=== PATIENT | female | born 2000 | race Caucasian/White ===

== ENCOUNTER 2020-04-29 14:37 | Outpatient (REF) | payer OTHER, SELFPAY ==
[2020-04-30 01:46] LABS: CT PCR NOT DETECTED (Not Detect.); NG PCR NOT DETECTED (Not Detect.)
[2020-04-30 11:24] LABS: BV Int Neg Control Negative (Negative); BV Int Pos Control Positive (Positive)
== END 2020-04-29 14:38 | disposition home or self-care (01) ==
LOC: HO.LAB 14:37
PROVIDERS: PCP Hospitalist; Visit Provider Obstetrics & Gynecology
DX: N89.8 Other specified noninflammatory disorders of vagina (principal)
CPT/HCPCS: 87480; 87491; 87510; 87591; 87660; 88142; 99212

== ENCOUNTER 2020-07-01 09:44 | Outpatient (REF) | payer OTHER, SELFPAY | END 2020-07-01 09:45 | disposition home or self-care (01) | LOC: HO.LAB 09:44 | PROVIDERS: Visit Provider Nurse Practitioner Family | DX: J02.0 Streptococcal pharyngitis (principal); Z20.822 Contact with and (suspected) exposure to COVID-19 | CPT/HCPCS: 36415; U0003 ==

== ENCOUNTER 2020-07-20 08:17 | Outpatient (REF) | payer OTHER, SELFPAY ==
[2020-07-21 11:21] LABS: BV Int Neg Control Negative (Negative); BV Int Pos Control Positive (Positive)
[2020-07-21 17:32] LABS: C. trachomatis RNA TMA NOT DETECTED (NOT DETECTED); N. gonorrhoeae RNA TMA NOT DETECTED (NOT DETECTED)
== END 2020-07-20 08:18 | disposition home or self-care (01) ==
LOC: HO.LAB 08:17
PROVIDERS: Visit Provider Advanced Practice Midwife
DX: Z01.419 Encounter for gynecological examination (general) (routine) without abnormal findings (principal); B37.9 Candidiasis, unspecified; E66.9 Obesity, unspecified; Z84.81 Family history of carrier of genetic disease; Z87.42 Personal history of other diseases of the female genital tract; Z79.2 Long term (current) use of antibiotics
CPT/HCPCS: 87210; 87480; 87491; 87510; 87591; 87660

== ENCOUNTER 2020-08-10 07:54 | Outpatient (REF) | payer OTHER, SELFPAY ==
[2020-08-11 08:48] LABS: BV Int Neg Control Negative (Negative); BV Int Pos Control Positive (Positive)
== END 2020-08-10 07:55 | disposition home or self-care (01) ==
LOC: HO.LAB 07:54
PROVIDERS: Visit Provider Advanced Practice Midwife
DX: B37.9 Candidiasis, unspecified (principal); E28.2 Polycystic ovarian syndrome; J45.20 Mild intermittent asthma, uncomplicated; K21.9 Gastro-esophageal reflux disease without esophagitis; E66.9 Obesity, unspecified; Z88.8 Allergy status to other drugs, medicaments and biological substances; Z79.3 Long term (current) use of hormonal contraceptives; Z84.81 Family history of carrier of genetic disease; Z80.3 Family history of malignant neoplasm of breast; Z79.2 Long term (current) use of antibiotics
CPT/HCPCS: 87480; 87510; 87660; 99212

== ENCOUNTER → 2020-08-26 13:07 | Outpatient (BNVA) | payer OTHER, SELFPAY | PROVIDERS: Visit Provider Advanced Practice Midwife | DX: Z30.432 Encounter for removal of intrauterine contraceptive device (principal); Z30.011 Encounter for initial prescription of contraceptive pills | CPT/HCPCS: 11982 ==

== ENCOUNTER 2020-09-14 13:35 | Outpatient (REF) | payer OTHER, SELFPAY | END 2020-09-14 13:36 | disposition home or self-care (01) | LOC: HO.LNP 13:35 | PROVIDERS: Visit Provider Family Medicine | DX: Z20.822 Contact with and (suspected) exposure to COVID-19 (principal); B34.9 Viral infection, unspecified | CPT/HCPCS: U0003; U0005 ==

== ENCOUNTER 2020-09-18 21:01 | Emergency (ER) | payer OTHER, SELFPAY ==
[2020-09-18 23:03] LABS: COVID-19 Test Negative (Negative)
--- NOTE | 2020-09-19 00:41 | ED.URI ---
HPI - URI/Sore Throat General Chief Complaint: Upper Respiratory Symptoms Stated Complaint: COVID SYMPTOMS Time Seen by Provider: 09/19/20 00:41 Source: patient Mode of arrival: ambulatory Limitations: no limitations History of Present Illness HPI Narrative: Sore throat for 2 weeks. Patient with recurrent strep pharyngitis had negative strep test on 08/31 at PCP office even though she was given clindamycin for 10 days which she took it was seen again at PCP office on 09/14 and diagnosed with viral tonsillitis supposed to follow-up with ENT patient comes here that she noticed white spots on the left tonsil which is been there before also and no says that she has temperature of 104 degrees at home on arrival temperature was 98.6 degrees without any tachycardia nontoxic look rapid strep and COVID test was negative MD elicited complaint: fever and sore throat Onset (ago): day(s) Severity: mild Related Data Home Medications Medication Instructions Recorded Confirmed albuterol sulfate 90 mcg/actuation 2 puff PO Q6H PRN 06/02/20 07/06/20 aerosol inhaler ibuprofen 600 mg tablet 600 mg PO Q6H PRN 06/02/20 07/06/20 Previous Rx's Medication Instructions Recorded cetirizine 10 mg tablet 10 mg PO DAILY 90 Days #90 tab 04/21/20 drospirenone 3 mg-ethinyl 1 tab PO DAILY 28 Days #28 tab 08/26/20 estradiol 0.03 mg tablet fluconazole 150 mg tablet 150 mg PO QWEEK PRN #1 tab 08/31/20 omeprazole 20 mg capsule,delayed 40 mg PO DAILY 30 Days #60 cap 08/31/20 release fluticasone propionate 50 1 spray INTRANASAL Q12H 30 Days 09/14/20 mcg/actuation nasal #16 g spray,suspension pseudoephedrine HCl 30 mg tablet 60 mg PO Q6H PRN 4 Days #32 tab 09/14/20 Allergies Allergy/AdvReac Type Severity Reaction Status Date / Time adhesive tape [ADHESIVE TAPE] Allergy Intermediate RASH Verified 09/14/20 11:30 Medical tape Allergy Intermediate hives Uncoded 08/31/20 10:48 Review of Systems Review of Systems: Constitutional : No Weight loss, No Fever, No Chills ENT/Mouth : + sore throat, No Rhinorrhea Eyes: No Eye Pain, No Swelling Cardiovascular : No Chest Pain, no palpitations Respiratory : No Cough, No Sputum, no shortness of breath Gastrointestinal : no Nausea, No Vomiting, No Diarrhea, No abdominal Pain, no black stools Genitourinary : No Dysuria, No Urinary Frequency Musculoskeletal : No joint pain, No Myalgias, No Joint Swelling Skin : No Skin Lesions, No rash Neuro : No Weakness, No Numbness, No Dizziness, No Headache Psych : No Anxiety/Panic, No Depression Heme/Lymph: No Bruising, No Lymphadenopathy Endocrine : No Polyuria, No Polydipsia All other systems reviewed and are negative [facility] Past Medical History Medical History Asthma, mild intermittent, well-controlled Cervical cancer screening Chronic GERD Etonogestrel implant for control Family history of breast cancer gene mutation in first degree relative Obesity (BMI 35.0-39.9 without comorbidity) PCOS (polycystic ovarian syndrome) Yeast infection Surgical History No pertinent past surgical history Family History Family History Mother Breast cancer Father No problems noted. Social History Social History Alcohol intake: never Smoking Status: Never smoker Advance Directives: No Sexual orientation: Straight/Heterosexual Gender identity: female Physical Exam Vital Signs: Vital Signs: Last Vital Signs Temp 98.6 F 09/19/20 00:55 Pulse 84 09/19/20 00:55 Resp 16 09/19/20 00:55 BP 136/74 09/19/20 00:55 Pulse Ox 100 09/19/20 00:55 Body Mass Index 34.0 Const: General: no acute distress, well developed, alert, awake and Physically active Orientation/consciousness: patient oriented x3 HENMT: Head: Yes normal to inspection Ears: hearing grossly normal bilaterally and TM's normal bilaterally General nose exam: Normal external nose present Face and sinus: Yes normal facial exam Mouth: Normal oral and palatal mucosa present Teeth and gingiva: dentition normal Throat: Yes uvula midline, Yes abnormal tonsil (Slightly inflamed left tonsil with food stuck in pockets no midline shift) and No peritonsillar mass Neck: Neck: Yes normal visual inspection, Yes full ROM and Yes no lymphadenopathy Resp: Effort & Inspection: normal respiratory effort Auscultation: clear to auscultation bilaterally Cardio: Palpation: normal PMI Rate: regular rate Rhythm: regular rhythm Heart sounds: S1 normal heart sound present and S2 normal heart sound present Neuro: General: patient oriented x3 MDM - URI/Sore Throat MDM Narrative Medical decision making narrative: Patient with recurrent tonsillitis last strep test was negative done on 08/31 was seen by her PCP on 09/14 and diagnosed with viral illness patient finished a course of clindamycin on 09/10 comes here with pain in the left tonsil area patient states that she had fever at home but on arrival temperature was 98.6 degrees patient is supposed to follow with ENT no difficulty in swallowing no cough no shortness of breath . at 00:50 patient eloped from the ER Lab Data Labs: Lab Results 09/18/20 Range/Units 22:41 COVID-19 (TRES) Negative (Negative) COVID-19 Clin Com See Note Discharge Plan Discharge Clinical Impression: Acute viral tonsillitis Patient Disposition: Elopement Prescriptions: No Action cetirizine [Zyrtec] 10 mg tablet 10 mg PO DAILY 90 Days Qty: 90 RF: 1 fluconazole [Diflucan] 150 mg tablet 150 mg PO QWEEK PRN (Reason: yeast infection recurrent) Qty: 1 RF: 0 omeprazole 20 mg capsule,delayed release(DR/EC) 40 mg PO DAILY 30 Days Qty: 60 RF: 0 ibuprofen 600 mg tablet 600 mg PO Q6H PRN (Reason: pain) RF: 0 albuterol sulfate 90 mcg/actuation HFA aerosol inhaler 2 puff PO Q6H PRNRF: 0 pseudoephedrine HCl 30 mg tablet 60 mg PO Q6H PRN (Reason: nasal congestion) 4 Days Qty: 32 RF: 0 fluticasone propionate [Flonase Allergy Relief] 50 mcg/actuation spray,suspension 1 spray intranasal Q12H 30 Days Qty: 16 RF: 0 drospirenone-ethinyl estradiol [Yolande (28)] 3-0.03 mg tablet 1 tab PO DAILY 28 Days Qty: 28 RF: 3
[2020-09-19 00:55] VITALS: BP 136/74; PULSE 84; RESP 16; TEMP 37; O2SAT 100; BMI 34.0
--- NOTE | 2020-09-19 01:19 | PC.NURSE ---
PATIENT ELOPING AFTER SEEING PROVIDER
== END 2020-09-19 01:00 | disposition left against medical advice (07) ==
PROVIDERS: Emergency Provider Internal Medicine; PCP Hospitalist
DX: J03.90 Acute tonsillitis, unspecified (principal); Z20.822 Contact with and (suspected) exposure to COVID-19
CPT/HCPCS: 36415; 87635; 99282; 99283

== ENCOUNTER → 2020-10-05 15:03 | Outpatient (BNVA) | payer OTHER, SELFPAY | PROVIDERS: PCP Hospitalist; Visit Provider Obstetrics & Gynecology | DX: E28.2 Polycystic ovarian syndrome (principal); B37.9 Candidiasis, unspecified | CPT/HCPCS: 99212 ==

== ENCOUNTER → 2020-11-02 10:38 | Outpatient (BNVA) | payer OTHER, SELFPAY | PROVIDERS: Visit Provider Obstetrics & Gynecology ==

== ENCOUNTER 2020-11-16 12:32 | Outpatient (REF) | payer OTHER, SELFPAY ==
[2020-11-16 13:32] LABS: MANUAL DIFF FLAG NO
[2020-11-16 13:35] LABS: Basophils Absolute Auto 0.1 X10*3/uL (0.0-0.2); Basophils Percent Auto 0.6 % (0-2); Eosinophils Absolute Auto 0.3 X10*3/uL (0.0-0.4); Eosinophils Percent Auto 3.2 % (0-4); Hematocrit 37.8 % (37-47); Hemoglobin 12.3 g/dl (12.0-16.0); Imm Gran Abs Auto 0.02 X10*3/uL (0.00-0.03); Imm Gran Pct Auto 0.2 % (0.0-0.4); Lymphocytes Absolute Auto 2.4 X10*3/uL (1.2-4.9); Lymphocytes Percent Auto 26.9 % (20-40); Mean Corpuscular HGB Conc 32.5 g/dl (31.0-35.0); Mean Corpuscular Hemoglobin 27.3 pg (27.0-33.0); Mean Corpuscular Volume 83.8 fL (80-98); Mean Platelet Volume 9.1 fL (9.4-12.3); Monocytes Absolute Auto 0.7 X10*3/uL (0.1-1.2); Monocytes Percent Auto 7.8 % (2-11); Neutrophils Absolute Auto 5.4 X10*3/uL (2.0-8.3); Neutrophils Percent Auto 61.3 % (45-73); Platelet Count 390 X10*3/uL (160-400); Red Blood Count 4.51 X10*6/uL (4.20-5.50); Red Cell Distribution Width 14.3 % (11.0-16.0); White Blood Count 8.9 X10*3/uL (4.8-10.8)
[2020-11-16 14:35] LABS: Anion Gap 12 (12-20); Blood Urea Nitrogen 10 mg/dL (9-16); Calcium 9.4 mg/dL (8.4-10.2); Carbon Dioxide 26 mmol/L (22-29); Chloride 104 mmol/L (96-108); Estimated Glomerular Filt Rate > 60; Glucose Random 112 mg/dL (60-115); Potassium 4.3 mmol/L (3.3-5.1); Sodium 138 mmol/L (135-145)
[2020-11-16 14:56] LABS: TSH reflex Free T4 0.43 uIU/mL (0.32-4.0)
[2020-11-17 20:17] LABS: Prolactin 8.2 ng/mL
== END 2020-11-16 12:33 | disposition home or self-care (01) ==
LOC: HO.WFDLDS 12:32
PROVIDERS: Family Medicine; Visit Provider Obstetrics & Gynecology
DX: Z00.00 Encounter for general adult medical examination without abnormal findings (principal); E28.2 Polycystic ovarian syndrome; J02.9 Acute pharyngitis, unspecified
CPT/HCPCS: 36415; 80048; 83498; 84146; 84443; 85025

== ENCOUNTER 2020-11-23 13:18 | Outpatient (REF) | payer OTHER, SELFPAY ==
[2020-11-23 17:16] LABS: Influenza A PCR NEGATIVE (Negative); Influenza B PCR NEGATIVE (Negative); Resp Syncy Virus RNA Qual PCR NEGATIVE (Negative); SARS COV2 PCR INHOUSE NEGATIVE (Negative)
== END 2020-11-23 13:19 | disposition home or self-care (01) ==
LOC: HO.LAB 13:18
PROVIDERS: Visit Provider Nurse Practitioner Family
DX: J02.9 Acute pharyngitis, unspecified (principal); Z20.822 Contact with and (suspected) exposure to COVID-19
CPT/HCPCS: 0241U; 36415; 87071

== ENCOUNTER 2020-12-28 18:22 | Outpatient (REF) | payer OTHER, SELFPAY | END 2020-12-28 18:23 | disposition home or self-care (01) | LOC: HO.LNP 18:22 | PROVIDERS: Visit Provider Family Medicine | DX: J02.9 Acute pharyngitis, unspecified (principal) | CPT/HCPCS: 87071 ==

== ENCOUNTER 2021-01-08 12:28 | Emergency (ER) | payer OTHER, SELFPAY ==
--- NOTE | ~2021-01-08 | XR_ITS ---
EXAMINATION: XR CHEST CLINICAL INFORMATION: Chest pain and shortness of breath COMPARISON: January 24, 2020 TECHNIQUE: 2 views of the chest were obtained. FINDINGS: No significant abnormality is noted involving the heart, lungs, mediastinum, bony thorax or soft tissues. XR/XR chest 2V IMPRESSION: No acute disease.
[2021-01-08 12:48] VITALS: BP 149/99; PULSE 109; RESP 18; TEMP 36.7; O2SAT 99; BMI 35.4
[2021-01-08 14:51] VITALS: BP 149/93; PULSE 85; RESP 16; O2SAT 100
--- NOTE | 2021-01-08 15:11 | ECG_ITS ---
Test Reason : CHEST PRESSURE Blood Pressure : / mmHG Vent. Rate : 082 BPM Atrial Rate : 082 BPM P-R Int : 132 ms QRS Dur : 084 ms QT Int : 374 ms P-R-T Axes : 056 051 019 degrees QTc Int : 436 ms Normal sinus rhythm with sinus arrhythmia Normal ECG No previous ECGs available Referred By: Marilin Brown Electronically Signed By:MILLI KINGSLEY
--- NOTE | 2021-01-08 15:29 | ED_ITS ---
HPI - General Adult General Chief complaint: General Medical Stated complaint: left arm pain, chest pressure Time Seen by Provider: 01/08/21 14:50 Source: patient Mode of arrival: ambulatory History of Present Illness HPI narrative: 20-year-old female with a past medical history of GERD, asthma, PCOS, obesity, presenting to the ED complaining of intermittent lightheadedness, substernal chest discomfort, palpitations and LUE tingling beginning [place] the beach. Reports increased anxiety pertaining to symptoms. Also reports associated SOB. Denies fever, chills, cough, abdominal pain, vomiting, recent travel, LE edema, cigarette smoking, history of blood clots Related Data Home Medications Medication Instructions Recorded Confirmed ibuprofen 600 mg tablet 600 mg PO Q6H PRN 06/02/20 07/06/20 Previous Rx's Medication Instructions Recorded omeprazole 20 mg capsule,delayed 40 mg PO DAILY 30 Days #60 cap 08/31/20 release fluticasone propionate 50 1 spray INTRANASAL Q12H 30 Days 09/14/20 mcg/actuation nasal #16 g spray,suspension pseudoephedrine HCl 30 mg tablet 60 mg PO Q6H PRN 4 Days #32 tab 09/14/20 fluconazole 150 mg tablet 150 mg PO Q72H 9 Days #3 tab 09/29/20 albuterol sulfate 90 mcg/actuation 2 puff PO Q6H PRN 30 Days #8.5 g 10/19/20 aerosol inhaler fluconazole 150 mg tablet 150 mg PO QWEEK 180 Days #4 tab 11/02/20 cetirizine 10 mg tablet 10 mg PO DAILY 90 Days #90 tab 12/15/20 fluconazole 150 mg tablet 150 mg PO Q3D #2 tab 12/16/20 clindamycin HCl 300 mg capsule 300 mg PO Q8H 10 Days #30 cap 12/28/20 amoxicillin 500 mg capsule 500 mg PO Q12H 10 Days #20 cap 12/30/20 Allergies Allergy/AdvReac Type Severity Reaction Status Date / Time adhesive tape [ADHESIVE TAPE] Allergy Intermediate RASH Verified 12/28/20 14:18 detergents Allergy Severe Hives, Uncoded 11/23/20 08:23 face swelling Medical tape Allergy Intermediate hives Uncoded 11/23/20 08:23 Review of Systems Review of Systems: Constitutional: No Fever, No Chills, No Fatigue, No Malaise Cardiovascular: + Chest Pain, + SOB, No Dyspnea on Exertion, No Edema, + Palpitations Respiratory: No Cough, No Sputum, No Dyspnea Gastrointestinal: No Nausea, No Vomiting, No Diarrhea, No Constipation, No Abdominal pain Genitourinary: No Dysuria, No Urinary Frequency, No Hematuria, No Flank Pain Musculoskeletal: No joint pain, No Myalgias Skin: No Skin Lesions, No rash Neuro: No Weakness, No Numbness, + Paresthesias, + lightheadedness Psych: + Anxiety/Panic Yes all other systems are reviewed and are negative [facility] Past Medical History Attestation statement: The following information was validated with the patient. Medical History Asthma, mild intermittent, well-controlled Cervical cancer screening Chronic GERD Etonogestrel implant for control Family history of breast cancer gene mutation in first degree relative Obesity (BMI 35.0-39.9 without comorbidity) PCOS (polycystic ovarian syndrome) PCOS (polycystic ovarian syndrome) Yeast infection Surgical History No pertinent past surgical history Family History Family History Mother Breast cancer Father No problems noted. Social History Social History Alcohol intake: never Advance Directives: Yes Advance Directives Information Provided: No Advance Directives on File: No Patient : No Sexual orientation: Straight/Heterosexual Gender identity: female Physical Exam Vital Signs: Vital Signs: Last Vital Signs Temp 98.1 F 01/08/21 12:48 Pulse 95 01/08/21 16:53 Resp 16 01/08/21 14:51 BP 140/84 H 01/08/21 16:53 Pulse Ox 100 01/08/21 14:51 Body Mass Index 35.4 Const: General: cooperative, healthy appearing, no acute distress, well developed, alert and awake Orientation/consciousness: patient oriented x3 Limitations: no limitations HENMT: Head: Yes normal to inspection Ears: hearing grossly normal bilaterally General nose exam: Normal external nose present Face and sinus: Yes normal facial exam Eyes: General: appearance normal, both eyes and all related structures EOM: EOMs intact bilaterally Neck: Neck: Yes normal visual inspection and Yes no meningeal signs Resp: Effort & Inspection: normal respiratory effort Auscultation: clear to auscultation bilaterally, no rales, no rhonchi and no wheezes Cardio: Rate: regular rate Heart sounds: S1 normal heart sound present and S2 normal heart sound present GI: Inspection: Yes normal to inspection Palpation (GI): Soft to palpation, nontender, no guarding and not rigid : General: Yes no CVA tenderness Back/Spine/Pelvis: Back: no CVA tenderness Skin: Rashes: no rashes Wounds: no wounds Neuro: General: patient oriented x3 and no meningeal signs Gait exam (Neuro): Normal gait present Extrem: General: Yes normal to inspection, Yes no pedal edema and Yes no calf tenderness Course Course Course Narrative: -1645--labs unremarkable, troponin negative -UA with trace protein, negative XR chest 2V IMPRESSION: No acute disease. -1714--orthostatic vital signs negative results discussed with patient and mother at bedside including worrisome signs and symptoms and strict return precautions including close follow-up with primary care doctor and Cardiology, patient verbalized understanding feel safe for discharge home Medical Decision Making [facility] Narrative Medical decision making narrative: 20-year-old female with a past medical hi story of GERD, asthma, PCOS, obesity, presenting to the ED complaining of intermittent lightheadedness, substernal chest discomfort, palpitations and LUE tingling beginning yesterday while at the beach. On exam initially tachycardic, anxious, NAD/nontoxic appearing, lungs CTA, no pedal edema or calf tenderness. Pulses intact throughout. Concern for anxiety reaction vs ACS vs arrhythmia. Rule out metabolic abnormalities infectious etiology. Symptoms atypical for PE Plan: EKG, labs, CXR, reassess Lab Data Result diagrams: 01/08/21 15:31 01/08/21 15:31 Labs: Lab Results 01/08/21 01/08/21 01/08/21 Range/Units 15:31 15:31 15:31 WBC 9.5 (4.8-10.8) X10*3/uL RBC 4.54 (4.20-5.50) X10*6/uL Hgb 12.3 (12.0-16.0) g/dl Hct 37.4 (37-47) % MCV 82.4 (80-98) fL MCH 27.1 (27.0-33.0) pg MCHC 32.9 (31.0-35.0) g/dl RDW 14.6 (11.0-16.0) % Plt Count TNP MPV 9.6 (9.4-12.3) fL Immature Gran % (Auto) 0.3 (0.0-0.4) % Neut % (Auto) 60.8 (45-73) % Lymph % (Auto) 29.4 (20-40) % [place] % (Auto) 7.2 (2-11) % Eos % (Auto) 2.0 (0-4) % Baso % (Auto) 0.3 (0-2) % Lymph # (Auto) 2.8 (1.2-4.9) X10*3/uL [place] # (Auto) 0.7 (0.1-1.2) X10*3/uL Eos # (Auto) 0.2 (0.0-0.4) X10*3/uL Baso # (Auto) 0.0 (0.0-0.2) X10*3/uL Abs Immat Gran (auto) 0.03 (0.00-0.03) X10*3/uL Absolute Neuts (auto) 5.8 (2.0-8.3) X10*3/uL Absolute Nucleated RBC 0.000 (0.0-0.012) X10*3/uL Nucleated RBC % (auto) 0.0 (0.0-0.2) /100WBC Smear Tech's Comments VERIFIED Sodium 142 (135-145) mmol/L Potassium 4.2 (3.3-5.1) mmol/L Chloride 108 (96-108) mmol/L Carbon Dioxide 24 (22-29) mmol/L Anion Gap 14 (12-20) BUN 10 (9-16) mg/dL Creatinine 0.74 (0.5-1.4) mg/dL Estim Creat Clear Calc 127.4 Estimated GFR > 60 Random Glucose 77 (60-115) mg/dL Calcium 9.6 (8.4-10.2) mg/dL Magnesium 2.1 (1.6-2.6) mg/dL Total Bilirubin < 0.2 (0.0-1.0) mg/dL Direct Bilirubin < 0.2 (0.0-0.5) mg/dL AST 17 (5-31) U/L ALT 13 (0-31) U/L Alkaline Phosphatase 121 H (39-117) U/L Troponin I High Sens < 3.5 (<3.5-17.0) ng/L Total Protein 7.7 (6.5-8.0) g/dL Albumin 4.4 (3.5-5.0) g/dL TSH 0.62 (0.32-4.0) uIU/mL Urine Color Urine Appearance Urine pH (5.0-8.0) Ur Specific [place] (1.005-1.025) Urine Protein (NEG-TRACE) MG/DL Urine Glucose (UA) (NEG) MG/DL Urine Ketones (NEG) MG/DL Urine Blood (NEG) Urine Nitrite (NEG) Ur Leukocyte Esterase (NEG) Urine Test (NEGATIVE) Urine Opiates Screen (Not Detect) Ur Barbiturates Screen (Not Detect) Ur Phencyclidine Scrn (Not Detect) Ur Amphetamines Screen (Not Detect) U Benzodiazepines Scrn (Not Detect) Urine Cocaine Screen (Not Detect) U Marijuana (THC) Screen (Not Detect) 01/08/21 01/08/21 01/08/21 Range/Units 15:36 15:36 15:36 WBC (4.8-10.8) X10*3/uL RBC (4.20-5.50) X10*6/uL Hgb (12.0-16.0) g/dl Hct (37-47) % MCV (80-98) fL MCH (27.0-33.0) pg MCHC (31.0-35.0) g/dl RDW (11.0-16.0) % Plt Count MPV (9.4-12.3) fL Immature Gran % (Auto) (0.0-0.4) % Neut % (Auto) (45-73) % Lymph % (Auto) (20-40) % [place] % (Auto) (2-11) % Eos % (Auto) (0-4) % Baso % (Auto) (0-2) % Lymph # (Auto) (1.2-4.9) X10*3/uL [place] # (Auto) (0.1-1.2) X10*3/uL Eos # (Auto) (0.0-0.4) X10*3/uL Baso # (Auto) (0.0-0.2) X10*3/uL Abs Immat Gran (auto) (0.00-0.03) X10*3/uL Absolute Neuts (auto) (2.0-8.3) X10*3/uL Absolute Nucleated RBC (0.0-0.012) X10*3/uL Nucleated RBC % (auto) (0.0-0.2) /100WBC Smear Tech's Comments Sodium (135-145) mmol/L Potassium (3.3-5.1) mmol/L Chloride (96-108) mmol/L Carbon Dioxide (22-29) mmol/L Anion Gap (12-20) BUN (9-16) mg/dL Creatinine (0.5-1.4) mg/dL Estim Creat Clear Calc Estimated GFR Random Glucose (60-115) mg/dL Calcium (8.4-10.2) mg/dL Magnesium (1.6-2.6) mg/dL Total Bilirubin (0.0-1.0) mg/dL Direct Bilirubin (0.0-0.5) mg/dL AST (5-31) U/L ALT (0-31) U/L Alkaline Phosphatase (39-117) U/L Troponin I High Sens (<3.5-17.0) ng/L Total Protein (6.5-8.0) g/dL Albumin (3.5-5.0) g/dL TSH (0.32-4.0) uIU/mL Urine Color YELLOW Urine Appearance CLEAR Urine pH 7.0 (5.0-8.0) Ur Specific [place] 1.015 (1.005-1.025) Urine Protein TRACE (NEG-TRACE) MG/DL Urine Glucose (UA) NEG (NEG) MG/DL Urine Ketones NEG (NEG) MG/DL Urine Blood NEG (NEG) Urine Nitrite NEG (NEG) Ur Leukocyte Esterase NEG (NEG) Urine Test NEGATIVE (NEGATIVE) Urine Opiates Screen Not Detected (Not Detect) Ur Barbiturates Screen Not Detected (Not Detect) Ur Phencyclidine Scrn Not Detected (Not Detect) Ur Amphetamines Screen Not Detected (Not Detect) U Benzodiazepines Scrn Not Detected (Not Detect) Urine Cocaine Screen Not Detected (Not Detect) U Marijuana (THC) Screen Not Detected (Not Detect) ECG Data Attestation: I personally reviewed and interpreted this ECG as follows: Interpretation: EKG normal sinus rhythm with sinus arrhythmia with rate of 82, nonischemic/no stemi Discharge Plan Discharge Clinical Impression: Lightheadedness, Chest pain Patient Disposition: Home, Self-Care Instructions: Lightheadedness (ED), Chest Pain (ED) Additional Instructions: Your blood work is unremarkable today in the emergency department Your x-ray was within normal limits It is important for you to stay hydrated at home Please follow-up with your primary care doctor and cardiology If her symptoms persist or worsen, become unbearable or more constant, or passing out, or have fever please return to the ED Prescriptions: No Action fluconazole [Diflucan] 150 mg tablet 150 mg PO Q72H 9 Days Qty: 3 RF: 0 albuterol sulfate 90 mcg/actuation HFA aerosol inhaler 2 puff PO Q6H PRN (Reason: shortness of breath or wheezing) 30 Days Qty: 8.5 RF: 3 cetirizine [Zyrtec] 10 mg tablet 10 mg PO DAILY 90 Days Qty: 90 RF: 1 fluconazole 150 mg tablet 150 mg PO Q3D Qty: 2 RF: 0 amoxicillin 500 mg capsule 500 mg PO Q12H 10 Days Qty: 20 RF: 0 omeprazole 20 mg capsule,delayed release(DR/EC) 40 mg PO DAILY 30 Days Qty: 60 RF: 0 clindamycin HCl 300 mg capsule 300 mg PO Q8H 10 Days Qty: 30 RF: 0 ibuprofen 600 mg tablet 600 mg PO Q6H PRN (Reason: pain) RF: 0 pseudoephedrine HCl 30 mg tablet 60 mg PO Q6H PRN (Reason: nasal congestion) 4 Days Qty: 32 RF: 0 fluticasone propionate [Flonase Allergy Relief] 50 mcg/actuation spray,suspension 1 spray intranasal Q12H 30 Days Qty: 16 RF: 0 fluconazole 150 mg tablet 150 mg PO QWEEK 180 Days Qty: 4 RF: 4 Referrals: Tal Alvarez MD [Physician] - 1 week Amber Green NP [Primary Care Provider] - 2 days
[2021-01-08 15:43] LABS: Glucose Urine UA NEG (NEG); Leukocyte Esterase Urine NEG (NEG); Nitrite Urine NEG (NEG); Specific Gravity - Urine 1.015 (1.005-1.025); Urine Blood NEG (NEG); Urine Ketones NEG (NEG); Urine Protein TRACE MG/DL (NEG-TRACE)
[2021-01-08 15:44] LABS: Basophils Percent Auto 0.3 % (0-2); Eosinophils Absolute Auto 0.2 X10*3/uL (0.0-0.4); Hematocrit 37.4 % (37-47); Hemoglobin 12.3 g/dl (12.0-16.0); Imm Gran Abs Auto 0.03 X10*3/uL (0.00-0.03); Imm Gran Pct Auto 0.3 % (0.0-0.4); Lymphocytes Absolute Auto 2.8 X10*3/uL (1.2-4.9); Lymphocytes Percent Auto 29.4 % (20-40); MANUAL DIFF FLAG SCAN; Mean Corpuscular HGB Conc 32.9 g/dl (31.0-35.0); Mean Corpuscular Hemoglobin 27.1 pg (27.0-33.0); Mean Corpuscular Volume 82.4 fL (80-98); Mean Platelet Volume 9.6 fL (9.4-12.3); Monocytes Absolute Auto 0.7 X10*3/uL (0.1-1.2); Monocytes Percent Auto 7.2 % (2-11); Neutrophils Absolute Auto 5.8 X10*3/uL (2.0-8.3); Neutrophils Percent Auto 60.8 % (45-73); PLT CLUMP 1; Red Blood Count 4.54 X10*6/uL (4.20-5.50); Red Cell Distribution Width 14.6 % (11.0-16.0); SCAN SMEAR FLAG 1
[2021-01-08 15:45] LABS: White Blood Count 9.5 X10*3/uL (4.8-10.8)
[2021-01-08 15:46] LABS: Appearance Urine CLEAR; Color Urine YELLOW
[2021-01-08 15:47] LABS: UPreg QC Valid YES; Urine Pregnancy NEGATIVE (NEGATIVE)
[2021-01-08 15:57] LABS: SLIDE REVIEW VERIFIED
[2021-01-08 16:02] LABS: Alanine Aminotransferase 13 U/L (0-31); Albumin Level 4.4 g/dL (3.5-5.0); Alkaline Phosphatase 121 U/L (39-117); Anion Gap 14 (12-20); Aspartate Amino Transferase 17 U/L (5-31); Bilirubin Direct < 0.2 mg/dL (0.0-0.5); Bilirubin Total < 0.2 mg/dL (0.0-1.0); Blood Urea Nitrogen 10 mg/dL (9-16); Calcium 9.6 mg/dL (8.4-10.2); Carbon Dioxide 24 mmol/L (22-29); Chloride 108 mmol/L (96-108); Creatinine Clr Calc Pharmacy 127.4; Estimated Glomerular Filt Rate > 60; Glucose Random 77 mg/dL (60-115); Magnesium 2.1 mg/dL (1.6-2.6); Potassium 4.2 mmol/L (3.3-5.1); Sodium 142 mmol/L (135-145); Total Protein 7.7 g/dL (6.5-8.0)
[2021-01-08 16:06] LABS: Troponin-I High Sensitivity < 3.5 ng/L (<3.5-17.0)
[2021-01-08] MEDS: 0.9 % Sodium Chloride 1,000 ML 999 ML IVCONT (16:08)
[2021-01-08] MEDS: ondansetron HCL 4 MG/2 ML VIAL IVPUSH (16:08)
[2021-01-08 16:10] LABS: Amphetamine Screen Urine Not Detected (Not Detect); Barbiturates, Urine Not Detected (Not Detect); Benzodiazepines Screen Urine Not Detected (Not Detect); Cannabinoid Screen Urine Not Detected (Not Detect); Cocaine Screen Urine Not Detected (Not Detect); Opiate Screen Urine Not Detected (Not Detect); Phencyclidine Screen Urine Not Detected (Not Detect)
--- NOTE | 2021-01-08 16:30 | PC.NURSE ---
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 Patient also states that her vision was blurry yesterday.
[2021-01-08 16:47] LABS: TSH reflex Free T4 0.62 uIU/mL (0.32-4.0)
[2021-01-08 16:51] VITALS: BP 127/82; PULSE 79
[2021-01-08 16:52] VITALS: BP 136/92; PULSE 82
[2021-01-08 16:53] VITALS: BP 140/84; PULSE 95
== END 2021-01-08 17:38 | disposition home or self-care (01) ==
PROVIDERS: Physician Assistant; Emergency Provider Emergency Medicine; PCP Hospitalist
DX: R42 Dizziness and giddiness (principal); R07.9 Chest pain, unspecified; R00.0 Tachycardia, unspecified; F41.9 Anxiety disorder, unspecified; J45.909 Unspecified asthma, uncomplicated; Z79.2 Long term (current) use of antibiotics; Z79.899 Other long term (current) drug therapy
CPT/HCPCS: 36415; 71046; 80048; 80076; 80307; 81003; 81025; 83735; 84443; 84484; 85025; 93005; 96361; 96374; 99284; J2405

== ENCOUNTER 2021-01-26 12:18 | Outpatient (REF) | payer OTHER, SELFPAY ==
[2021-01-26 13:57] LABS: MANUAL DIFF FLAG NO
[2021-01-26 14:09] LABS: Basophils Percent Auto 0.4 % (0-2); Eosinophils Absolute Auto 0.1 X10*3/uL (0.0-0.4); Eosinophils Percent Auto 1.3 % (0-4); Hematocrit 36.6 % (37-47); Hemoglobin 11.7 g/dl (12.0-16.0); Imm Gran Abs Auto 0.03 X10*3/uL (0.00-0.03); Imm Gran Pct Auto 0.3 % (0.0-0.4); Lymphocytes Absolute Auto 2.2 X10*3/uL (1.2-4.9); Lymphocytes Percent Auto 24.9 % (20-40); Mean Corpuscular Hemoglobin 26.8 pg (27.0-33.0); Mean Corpuscular Volume 83.9 fL (80-98); Mean Platelet Volume 9.3 fL (9.4-12.3); Monocytes Absolute Auto 0.6 X10*3/uL (0.1-1.2); Neutrophils Percent Auto 66.1 % (45-73); Platelet Count 422 X10*3/uL (160-400); Red Blood Count 4.36 X10*6/uL (4.20-5.50); Red Cell Distribution Width 14.5 % (11.0-16.0)
[2021-01-26 14:10] LABS: Glucose Urine UA NEG (NEG); Leukocyte Esterase Urine NEG (NEG); Nitrite Urine NEG (NEG); Urine Blood TRACE (NEG); Urine Ketones NEG (NEG); Urine Protein NEG (NEG-TRACE)
[2021-01-26 14:15] LABS: Appearance Urine CLEAR; Color Urine STRAW
[2021-01-26 14:36] LABS: RBC Urine 0 /HPF (0); Squamous Epithelial Cell Urine TRACE /LPF; WBC Urine 0-2 /HPF (0-4)
[2021-01-26 14:46] LABS: Alanine Aminotransferase 14 U/L (0-31); Albumin Level 4.4 g/dL (3.5-5.0); Alkaline Phosphatase 114 U/L (39-117); Anion Gap 13 (12-20); Aspartate Amino Transferase 14 U/L (5-31); Bilirubin Total 0.2 mg/dL (0.0-1.0); Blood Urea Nitrogen 8 mg/dL (9-16); Calcium 9.6 mg/dL (8.4-10.2); Carbon Dioxide 25 mmol/L (22-29); Chloride 106 mmol/L (96-108); Estimated Glomerular Filt Rate > 60; Glucose Random 80 mg/dL (60-115); Potassium 4.2 mmol/L (3.3-5.1); Sodium 140 mmol/L (135-145); Total Protein 7.5 g/dL (6.5-8.0)
[2021-01-26 15:07] LABS: TSH reflex Free T4 0.49 uIU/mL (0.32-4.0)
[2021-01-26 16:12] LABS: Folate 16.7 ng/mL (> or = 4.0); Vitamin B12 492 pg/mL (200-900)
== END 2021-01-26 12:19 | disposition home or self-care (01) ==
LOC: HO.WFDLDS 12:18
PROVIDERS: Visit Provider Family Medicine
DX: Z00.00 Encounter for general adult medical examination without abnormal findings (principal); R10.9 Unspecified abdominal pain; E53.8 Deficiency of other specified B group vitamins
CPT/HCPCS: 36415; 80053; 81001; 82607; 82746; 84443; 85025

== ENCOUNTER 2021-01-30 22:11 | Emergency (ER) | payer OTHER, SELFPAY ==
--- NOTE | ~2021-01-30 | CT_ITS ---
EXAMINATION: CT ABDOMEN AND PELVIS WITHOUT CONTRAST CLINICAL INFORMATION: Right abdominal pain. Nausea. COMPARISON: None TECHNIQUE: Multidetector volumetric imaging was performed from the superior aspect of the liver through the pubic symphysis. Sagittal and coronal reformatted images were obtained on the technologist's workstation. This CT examination was performed using dose optimization techniques as appropriate, variously including the following: *Automated exposure control *Adjustment of mA and/or kV according to patient size (this includes techniques or standardized protocols for targeted exams where dose is matched to indication/reason for exam; i.e. extremities or head) *Use of iterative reconstruction technique DLP: 840 mGy-cm FINDINGS: LUNG BASES: The visualized lung bases are unremarkable. LIVER, GALLBLADDER, AND BILIARY TREE: The liver is normal in size, shape, and attenuation. No focal hepatic lesion or biliary ductal dilatation is present. The gallbladder is unremarkable with no evidence of radiopaque gallstones, gallbladder wall thickening, or obvious pericholecystic inflammatory changes. PANCREAS: Unremarkable. SPLEEN: Unremarkable. ADRENAL GLANDS: Unremarkable. KIDNEYS AND URETERS: The kidneys are normal in size, shape, and attenuation. No hydronephrosis, hydroureter, or calculi seen. No perinephric stranding. BLADDER: Unremarkable. GASTROINTESTINAL TRACT: The stomach is unremarkable. Normal caliber small bowel. There is no obstruction. There is diverticulosis of the left hemicolon without diverticulitis. Normal appendix. No free air or free fluid. ABDOMINAL WALL: No significant hernia is appreciated. LYMPH NODES: Normal. VASCULAR: Unremarkable. PELVIC VISCERA: The uterus and adnexa are unremarkable. OSSEOUS STRUCTURES: No acute or suspicious osseous abnormality. CT/CT abdomen pelvis wo con IMPRESSION: No acute findings of the abdomen or pelvis. No inflammatory changes. Normal appendix.
[2021-01-30 22:38] VITALS: BP 124/82; PULSE 97; RESP 18; TEMP 36.8; O2SAT 97; BMI 36.9
--- NOTE | 2021-01-30 23:03 | ED_ITS ---
HPI - Abdominal Pain General Chief Complaint: Abdominal Pain Stated Complaint: Right lower abdominal pain/Nausea Time Seen by Provider: 01/30/21 22:16 Source: patient Mode of arrival: ambulatory History of Present Illness HPI narrative: 20-year-old female with presentation of right flank pain that started last night associated with nausea but denies any fever, chills, urinary pain/burning/frequency, diarrhea. LMP was 1 and half weeks ago and patient is taking chronic NSAIDs for a tendinitis. In addition, patient has not had a bowel movement since Saturday and denies history of abdominal surgery or kidney stones. Related Data Home Medications Medication Instructions Recorded Confirmed ibuprofen 600 mg tablet 600 mg PO Q6H PRN 06/02/20 01/12/21 Previous Rx's Medication Instructions Recorded albuterol sulfate 90 mcg/actuation 2 puff PO Q6H PRN 30 Days #8.5 g 10/19/20 aerosol inhaler cetirizine 10 mg tablet (Zyrtec) 10 mg PO DAILY 90 Days #90 tab 12/15/20 omeprazole 20 mg capsule,delayed 40 mg PO DAILY 30 Days #60 cap 01/27/21 release Allergies Allergy/AdvReac Type Severity Reaction Status Date / Time adhesive tape [ADHESIVE TAPE] Allergy Intermediate RASH Verified 01/30/21 22:38 detergents Allergy Severe Hives, Uncoded 01/12/21 16:23 face swelling Medical tape Allergy Intermediate hives Uncoded 01/12/21 16:23 Review of Systems Review of Systems Pertinent positives and negatives as stated in HPI 10 point review of systems is otherwise negative. Physical Exam Vital Signs: Vital Signs: Last Vital Signs Temp 98.3 F 01/30/21 22:38 Pulse 97 01/30/21 22:38 Resp 18 01/30/21 22:38 BP 124/82 01/30/21 22:38 Pulse Ox 97 01/30/21 22:38 Body Mass Index 36.9 VITAL SIGNS: Reviewed. GENERAL: Well developed, well nourished, in no acute distress. HEAD: Normocephalic/atraumatic EYES: PERRLA, EOMI OROPHARYNX: no oral lesions noted, posterior pharynx clear LUNGS: Normal breath sounds. No adventitious sounds or accessory muscle use. SpO2<97> CARDIOVASCULAR: Regular rate and rhythm without noted murmurs ABDOMEN: Obese, Soft, tender set mid right abdomen without rebound, non- distended with bowel sounds, no CVA tenderness SKIN: Inspection of the skin reveals no rashes NEUROLOGIC: Alert and oriented x 4. Course Course Course Narrative: 20-year-old female with history and clinical presentation suggestive of gallbladder, renal colic, UTI, less likely appendicitis. Review of all investigations otherwise negative for acute findings. Patient discharged with presumptive gastritis and likely leukocytosis secondary to stress response. Patient informed of all results and discharged home in stable condition. MDM - Abdominal Pain Lab Data Result diagrams: 01/30/21 23:26 01/30/21 23:26 Labs: Lab Results 01/30/21 01/30/21 01/30/21 Range/Units 23:05 23:05 23:26 WBC 12.4 H (4.8-10.8) X10*3/uL RBC 4.28 (4.20-5.50) X10*6/uL Hgb 11.6 L (12.0-16.0) g/dl Hct 35.6 L (37-47) % MCV 83.2 (80-98) fL MCH 27.1 (27.0-33.0) pg MCHC 32.6 (31.0-35.0) g/dl RDW 14.5 (11.0-16.0) % Plt Count 388 (160-400) X10*3/uL MPV 8.9 L (9.4-12.3) fL Immature Gran % (Auto) 0.2 (0.0-0.4) % Neut % (Auto) 59.7 (45-73) % Lymph % (Auto) 28.2 (20-40) % [place] % (Auto) 8.0 (2-11) % Eos % (Auto) 3.5 (0-4) % Baso % (Auto) 0.4 (0-2) % Lymph # (Auto) 3.5 (1.2-4.9) X10*3/uL [place] # (Auto) 1.0 (0.1-1.2) X10*3/uL Eos # (Auto) 0.4 (0.0-0.4) X10*3/uL Baso # (Auto) 0.1 (0.0-0.2) X10*3/uL Abs Immat Gran (auto) 0.02 (0.00-0.03) X10*3/uL Absolute Neuts (auto) 7.4 (2.0-8.3) X10*3/uL Absolute Nucleated RBC 0.000 (0.0-0.012) X10*3/uL Nucleated RBC % (auto) 0.0 (0.0-0.2) /100WBC Sodium (135-145) mmol/L Potassium (3.3-5.1) mmol/L Chloride (96-108) mmol/L Carbon Dioxide (22-29) mmol/L Anion Gap (12-20) BUN (9-16) mg/dL Creatinine (0.5-1.4) mg/dL Estim Creat Clear Calc Estimated GFR Random Glucose (60-115) mg/dL Calcium (8.4-10.2) mg/dL Total Bilirubin (0.0-1.0) mg/dL AST (5-31) U/L ALT (0-31) U/L Alkaline Phosphatase (39-117) U/L Total Protein (6.5-8.0) g/dL Albumin (3.5-5.0) g/dL Lipase (8-78) U/L Urine Color YELLOW Urine Appearance HAZY Urine pH 6.0 (5.0-8.0) Ur Specific [place]im 1.025 (1.005-1.025) Urine Protein NEG (NEG-TRACE) MG/DL Urine Glucose (UA) NEG (NEG) MG/DL Urine Ketones NEG (NEG) MG/DL Urine Blood 2+ H (NEG) Urine Nitrite NEG (NEG) Ur Leukocyte Esterase NEG (NEG) Urine RBC 15-29 H (0) /HPF Urine WBC 0-2 (0-4) /HPF Ur Squamous Epith Cells 2+ /LPF Urine Bacteria TRACE /LPF Urine Mucus 3+ /LPF Urine Test NEGATIVE (NEGATIVE) 01/30/21 Range/Units 23:26 WBC (4.8-10.8) X10*3/uL RBC (4.20-5.50) X10*6/uL Hgb (12.0-16.0) g/dl Hct (37-47) % MCV (80-98) fL MCH (27.0-33.0) pg MCHC (31.0-35.0) g/dl RDW (11.0-16.0) % Plt Count (160-400) X10*3/uL MPV (9.4-12.3) fL Immature Gran % (Auto) (0.0-0.4) % Neut % (Auto) (45-73) % Lymph % (Auto) (20-40) % [place] % (Auto) (2-11) % Eos % (Auto) (0-4) % Baso % (Auto) (0-2) % Lymph # (Auto) (1.2-4.9) X10*3/uL [place] # (Auto) (0.1-1.2) X10*3/uL Eos # (Auto) (0.0-0.4) X10*3/uL Baso # (Auto) (0.0-0.2) X10*3/uL Abs Immat Gran (auto) (0.00-0.03) X10*3/uL Absolute Neuts (auto) (2.0-8.3) X10*3/uL Absolute Nucleated RBC (0.0-0.012) X10*3/uL Nucleated RBC % (auto) (0.0-0.2) /100WBC Sodium 142 (135-145) mmol/L Potassium 4.2 (3.3-5.1) mmol/L Chloride 106 (96-108) mmol/L Carbon Dioxide 28 (22-29) mmol/L Anion Gap 12 (12-20) BUN 13 D (9-16) mg/dL Creatinine 0.83 (0.5-1.4) mg/dL Estim Creat Clear Calc 111.9 Estimated GFR > 60 Random Glucose 98 (60-115) mg/dL Calcium 9.4 (8.4-10.2) mg/dL Total Bilirubin < 0.2 (0.0-1.0) mg/dL AST 16 (5-31) U/L ALT 15 (0-31) U/L Alkaline Phosphatase 110 (39-117) U/L Total Protein 7.2 (6.5-8.0) g/dL Albumin 4.2 (3.5-5.0) g/dL Lipase 18 (8-78) U/L Urine Color Urine Appearance Urine pH (5.0-8.0) Ur Specific [place]im (1.005-1.025) Urine Protein (NEG-TRACE) MG/DL Urine Glucose (UA) (NEG) MG/DL Urine Ketones (NEG) MG/DL Urine Blood (NEG) Urine Nitrite (NEG) Ur Leukocyte Esterase (NEG) Urine RBC (0) /HPF Urine WBC (0-4) /HPF Ur Squamous Epith Cells /LPF Urine Bacteria /LPF Urine Mucus /LPF Urine Test (NEGATIVE) Discharge Plan Discharge Clinical Impression: Abdominal discomfort, Gastritis Patient Disposition: Home, Self-Care Instructions: Diet for Stomach Ulcers and Gastritis (ED), Gastritis (ED), Safe Use of NSAIDs (ED) Additional Instructions: 1. Resume all home medications as prescribed. 2. Follow-up with your primary care provider in the next 2-3 days for re- evaluation. 3. Exercise caution with the amount ibuprofen that you are using as it can contribute to further stomach problems. Continue to drink plenty of fluids brianna cially water. Return to the ER for acute worsening of symptoms. Prescriptions: No Action albuterol sulfate 90 mcg/actuation HFA aerosol inhaler 2 puff PO Q6H PRN (Reason: shortness of breath or wheezing) 30 Days Qty: 8.5 RF: 3 cetirizine [Zyrtec] 10 mg tablet 10 mg PO DAILY 90 Days Qty: 90 RF: 1 omeprazole 20 mg capsule,delayed release(DR/EC) 40 mg PO DAILY 30 Days Qty: 60 RF: 3 ibuprofen 600 mg tablet 600 mg PO Q6H PRN (Reason: pain) RF: 0 Referrals: Amber Green NP [Primary Care Provider] - 2 days [facility] Past Medical History Source: nursing notes reviewed Medical History Asthma, mild intermittent, well-controlled Cervical cancer screening Chronic GERD Etonogestrel implant for control Family history of breast cancer gene mutation in first degree relative Obesity (BMI 35.0-39.9 without comorbidity) Otitis media PCOS (polycystic ovarian syndrome) Pharyngitis Serous otitis media Sinus infection Sore throat Viral illness Yeast infection Surgical History No pertinent past surgical history Family History Family History Mother Breast cancer Father No problems noted. Social History Social History Alcohol intake: never Advance Directives: No Advance Directives Information Provided: No Patient : No Sexual orientation: Straight/Heterosexual Gender identity: female
[2021-01-30 23:27] LABS: Glucose Urine UA NEG (NEG); Leukocyte Esterase Urine NEG (NEG); Nitrite Urine NEG (NEG); Specific Gravity - Urine 1.025 (1.005-1.025); UACC Culture Trigger NO; Urine Blood 2+ (NEG); Urine Ketones NEG (NEG); Urine Protein NEG (NEG-TRACE)
[2021-01-30 23:29] LABS: Appearance Urine HAZY; Color Urine YELLOW; UPreg QC Valid YES; Urine Pregnancy NEGATIVE (NEGATIVE)
[2021-01-30 23:30] LABS: MANUAL DIFF FLAG NO
[2021-01-30 23:31] LABS: Basophils Absolute Auto 0.1 X10*3/uL (0.0-0.2); Basophils Percent Auto 0.4 % (0-2); Eosinophils Absolute Auto 0.4 X10*3/uL (0.0-0.4); Eosinophils Percent Auto 3.5 % (0-4); Hematocrit 35.6 % (37-47); Hemoglobin 11.6 g/dl (12.0-16.0); Imm Gran Abs Auto 0.02 X10*3/uL (0.00-0.03); Imm Gran Pct Auto 0.2 % (0.0-0.4); Lymphocytes Absolute Auto 3.5 X10*3/uL (1.2-4.9); Lymphocytes Percent Auto 28.2 % (20-40); Mean Corpuscular HGB Conc 32.6 g/dl (31.0-35.0); Mean Corpuscular Hemoglobin 27.1 pg (27.0-33.0); Mean Corpuscular Volume 83.2 fL (80-98); Mean Platelet Volume 8.9 fL (9.4-12.3); Neutrophils Absolute Auto 7.4 X10*3/uL (2.0-8.3); Neutrophils Percent Auto 59.7 % (45-73); Platelet Count 388 X10*3/uL (160-400); Red Blood Count 4.28 X10*6/uL (4.20-5.50); Red Cell Distribution Width 14.5 % (11.0-16.0); White Blood Count 12.4 X10*3/uL (4.8-10.8)
[2021-01-31 00:02] LABS: Alanine Aminotransferase 15 U/L (0-31); Albumin Level 4.2 g/dL (3.5-5.0); Alkaline Phosphatase 110 U/L (39-117); Anion Gap 12 (12-20); Aspartate Amino Transferase 16 U/L (5-31); Bilirubin Total < 0.2 mg/dL (0.0-1.0); Blood Urea Nitrogen 13 mg/dL (9-16); Calcium 9.4 mg/dL (8.4-10.2); Carbon Dioxide 28 mmol/L (22-29); Chloride 106 mmol/L (96-108); Creatinine Clr Calc Pharmacy 111.9; Estimated Glomerular Filt Rate > 60; Glucose Random 98 mg/dL (60-115); Lipase 18 U/L (8-78); Potassium 4.2 mmol/L (3.3-5.1); Sodium 142 mmol/L (135-145); Total Protein 7.2 g/dL (6.5-8.0)
[2021-01-31 00:06] LABS: Bacteria Urine TRACE /LPF; Mucus Urine 3+ /LPF; Squamous Epithelial Cell Urine 2+ /LPF; WBC Urine 0-2 /HPF (0-4)
[2021-01-31] MEDS: hydrOXYzine HCL 25 MG TABLET PO (00:30)
--- NOTE | 2021-01-31 01:23 | PC.NURSE ---
Per CT, pt unable to tolerate scan. PRN administered per MAR. On reassessment, pt states still not willing to have CT scan. Agreeable to scan w/o contrast. made aware, order modified. CT staff notified of change
== END 2021-01-31 02:13 | disposition home or self-care (01) ==
PROVIDERS: Emergency Provider Student in an Organized Health Care Education/Training Program; PCP Hospitalist
DX: K29.70 Gastritis, unspecified, without bleeding (principal); R10.31 Right lower quadrant pain
CPT/HCPCS: 36415; 74176; 80053; 81001; 81025; 83690; 85025; 96374; 99284

== ENCOUNTER 2021-02-01 08:42 | Outpatient (REF) | payer OTHER, SELFPAY ==
[2021-02-01 11:02] LABS: Glucose Urine UA NEG (NEG); Leukocyte Esterase Urine NEG (NEG); Nitrite Urine NEG (NEG); Urine Blood NEG (NEG); Urine Ketones NEG (NEG); Urine Protein NEG (NEG-TRACE)
[2021-02-01 11:05] LABS: Appearance Urine CLEAR; Color Urine YELLOW
== END 2021-02-01 08:43 | disposition home or self-care (01) ==
LOC: HO.WFDLDS 08:42
PROVIDERS: Visit Provider Family Medicine
DX: R10.9 Unspecified abdominal pain (principal)
CPT/HCPCS: 81003

== ENCOUNTER 2021-02-01 08:49 | Outpatient (REF) | payer OTHER, SELFPAY ==
[2021-02-01 11:17] LABS: Cholesterol 139 mg/dL; HDL Cholesterol 38 mg/dL; LDL Cholesterol Calculated 84 mg/dl; Triglycerides 86 mg/dL
[2021-02-01 11:19] LABS: Estimated Average Glucose 105 mg/dL; Hemoglobin A1c % 5.3 %
[2021-02-06 14:40] LABS: Testosterone, Free 8.2 pg/mL (0.1-6.4); Testosterone, Total 43 ng/dL (2-45)
== END 2021-02-01 08:50 | disposition home or self-care (01) ==
LOC: HO.WFDLDS 08:49
PROVIDERS: Visit Provider Obstetrics & Gynecology
DX: E28.2 Polycystic ovarian syndrome (principal)
CPT/HCPCS: 36415; 80061; 83036; 84402; 84403

== ENCOUNTER 2021-02-22 00:35 | Emergency (ER) | payer OTHER, SELFPAY ==
[2021-02-22 00:37] VITALS: BP 152/98; PULSE 109; RESP 18; TEMP 36.9; O2SAT 100; BMI 36.6
--- NOTE | 2021-02-22 00:42 | ED_ITS ---
HPI - General Adult General Chief complaint: General Medical Stated complaint: mouth pain Time Seen by Provider: 02/22/21 00:38 Source: patient Mode of arrival: ambulatory Limitations: no limitations History of Present Illness MD complaint: post tonsillectomy bleeding Onset (ago): hour(s) (3) Location: mouth Severity: moderate (states it was brisk at one point but has slowed down did do ice water at home) Relieving factors: cold therapy Exacerbating factors: none Associated symptoms: denies other symptoms Treatments prior to arrival: none Related Data Home Medications Medication Instructions Recorded Confirmed ibuprofen 600 mg tablet 600 mg PO Q6H PRN 06/02/20 01/12/21 fluconazole 150 mg tablet mg PO 02/01/21 Previous Rx's Medication Instructions Recorded albuterol sulfate 90 mcg/actuation 2 puff PO Q6H PRN 30 Days #8.5 g 10/19/20 aerosol inhaler cetirizine 10 mg tablet (Zyrtec) 10 mg PO DAILY 90 Days #90 tab 12/15/20 omeprazole 20 mg capsule,delayed 40 mg PO DAILY 30 Days #60 cap 01/27/21 release hydroxyzine HCl 25 mg tablet 25 mg PO Q6H PRN #30 tab 02/06/21 sertraline 50 mg tablet 50 mg PO DAILY #30 tab 02/06/21 amoxicillin 500 mg tablet 500 mg PO Q12H 7 Days #14 tab 02/10/21 Allergies Allergy/AdvReac Type Severity Reaction Status Date / Time adhesive tape [ADHESIVE TAPE] Allergy Intermediate RASH Verified 02/22/21 00:37 detergents Allergy Severe Hives, Uncoded 02/22/21 00:37 face swelling Medical tape Allergy Intermediate hives Uncoded 02/22/21 00:37 Review of Systems Review of Systems: Constitutional : No Fever, No Chills ENT/Mouth : No sore throat, No Rhinorrhea, bleeding from tonsil site Eyes: No Eye Pain, No Swelling, No Redness Cardiovascular : No Chest Pain, No SOB Respiratory : No Cough, No Sputum, No Wheezing Gastrointestinal : pos nausea No Vomiting, No Diarrhea, Genitourinary : No Dysuria, No Urinary Frequency, No Hematuria, Musculoskeletal : No joint pain, No Myalgias, No Joint Swelling Skin : No Skin Lesions, No rash All other systems reviewed and are negative PMFSH Past Medical History Attestation statement: The following information was validated with the patient. Medical History Asthma, mild intermittent, well-controlled Cervical cancer screening Chronic GERD Etonogestrel implant for control Family history of breast cancer gene mutation in first degree relative Obesity (BMI 35.0-39.9 without comorbidity) Otitis media PCOS (polycystic ovarian syndrome) Pharyngitis Serous otitis media Sinus infection Sore throat Viral illness Yeast infection Surgical History No pertinent past surgical history Family History Family History Mother Breast cancer Father No problems noted. Social History Social History (Updated 02/22/21 @ 01:01 by Araceli Howard DO) Alcohol intake: never Patient Tobacco Use Status: Never used Tobacco Advance Directives: No Advance Directives Information Provided: Yes Patient : No Sexual orientation: Straight/Heterosexual Gender identity: Female Physical Exam Vital Signs: Vital Signs: Last Vital Signs Temp 98.5 F 02/22/21 00:37 Pulse 109 H 02/22/21 00:37 Resp 18 02/22/21 00:37 BP 152/98 H 02/22/21 00:37 Pulse Ox 100 02/22/21 00:37 Body Mass Index 36.6 Appearance: Alert. Oriented X3. No acute distress. Eyes: Pupils equal, round and reactive to light. ENT: R sided medial aspect near uvula scant slight ooze from tonsillectomy site no brisk bleeding, otherwise area is healing well Neck: Normal inspection. Neck supple. CVS: Normal heart rate and rhythm. Pulses normal. Respiratory: No respiratory distress. Breath sounds normal. Abdomen: Soft and nontender. Skin: Skin warm and dry. Normal skin color. Normal skin turgor. Extremities: No lower extremity edema. No calf ttp Neuro: Oriented X 3. No motor deficit. No sensory deficit. Course Course Course Narrative: call to [facility] [id number] ice water tranexamic acid if she improves then in the AM they can do silver nitrate in the office - Dr. Velasco patient doing much better very minimal to almost no ooze after ice and tranexamic acid will observe if she remains stable since it has been improving for 4 hours will refer to clinic for AM no brisk bleeding in 1 hour 40 min she is improved stable for DC Medical Decision Making MDM Narrative Medical decision making narrative: 20 yo female mild post tonsillectomy bleeding - will provide local measures and notify her ENT - no signs of brisk bleeding at this time in our ED Discharge Plan Discharge Clinical Impression: Post tonsillectomy secondary hemorrhage Patient Disposition: Home, Self-Care Instructions: Tonsillectomy (DC) Additional Instructions: return to ED for any worsening symptoms or concerns call clinic first thing in AM for evaluation worsening bleeding seek immediate care and call [phone] Prescriptions: No Action albuterol sulfate 90 mcg/actuation HFA aerosol inhaler 2 puff PO Q6H PRN (Reason: shortness of breath or wheezing) 30 Days Qty: 8.5 RF: 3 cetirizine [Zyrtec] 10 mg tablet 10 mg PO DAILY 90 Days Qty: 90 RF: 1 omeprazole 20 mg capsule,delayed release(DR/EC) 40 mg PO DAILY 30 Days Qty: 60 RF: 3 amoxicillin 500 mg tablet 500 mg PO Q12H 7 Days Qty: 14 RF: 0 sertraline 50 mg tablet 50 mg PO DAILY Qty: 30 RF: 3 hydroxyzine HCl 25 mg tablet 25 mg PO Q6H PRN (Reason: itching) Qty: 30 RF: 1 ibuprofen 600 mg tablet 600 mg PO Q6H PRN (Reason: pain) RF: 0 Stand Alone Forms: Work/School Release
--- NOTE | 2021-02-22 00:55 | PC.NURSE ---
CALL OUT TO AT [id number]
[2021-02-22] MEDS: Tranexamic Acid 1,000 MG/10 ML VIAL 500 MG INTRANASAL (01:04)
== END 2021-02-22 02:46 | disposition home or self-care (01) ==
PROVIDERS: Emergency Provider Emergency Medicine; PCP Hospitalist
DX: K91.840 Postprocedural hemorrhage of a digestive system organ or structure following a digestive system procedure (principal); K13.79 Other lesions of oral mucosa; Z79.899 Other long term (current) drug therapy
CPT/HCPCS: 99283

== ENCOUNTER 2021-03-15 13:55 | Outpatient (REF) | payer OTHER, SELFPAY ==
[2021-03-15 14:55] LABS: Influenza A PCR NEGATIVE (Negative); Influenza B PCR NEGATIVE (Negative); Resp Syncy Virus RNA Qual PCR NEGATIVE (Negative); SARS COV2 PCR INHOUSE NEGATIVE (Negative)
== END 2021-03-15 13:56 | disposition home or self-care (01) ==
LOC: HO.LNP 13:55
PROVIDERS: Visit Provider Family Medicine
DX: Z20.822 Contact with and (suspected) exposure to COVID-19 (principal); B34.9 Viral infection, unspecified
CPT/HCPCS: 0241U

== ENCOUNTER 2021-03-24 09:00 | Outpatient (REF) | payer OTHER, SELFPAY ==
[2021-03-24 10:42] LABS: MANUAL DIFF FLAG NO
[2021-03-24 10:43] LABS: Basophils Percent Auto 0.4 % (0-2); Eosinophils Absolute Auto 0.1 X10*3/uL (0.0-0.4); Eosinophils Percent Auto 1.5 % (0-4); Hemoglobin 12.2 g/dl (12.0-16.0); Imm Gran Abs Auto 0.03 X10*3/uL (0.00-0.03); Imm Gran Pct Auto 0.3 % (0.0-0.4); Lymphocytes Absolute Auto 2.2 X10*3/uL (1.2-4.9); Lymphocytes Percent Auto 23.4 % (20-40); Mean Corpuscular HGB Conc 32.1 g/dl (31.0-35.0); Mean Corpuscular Hemoglobin 27.1 pg (27.0-33.0); Mean Corpuscular Volume 84.3 fL (80-98); Mean Platelet Volume 9.2 fL (9.4-12.3); Monocytes Absolute Auto 0.7 X10*3/uL (0.1-1.2); Monocytes Percent Auto 7.1 % (2-11); Neutrophils Absolute Auto 6.4 X10*3/uL (2.0-8.3); Neutrophils Percent Auto 67.3 % (45-73); Platelet Count 423 X10*3/uL (160-400); Red Blood Count 4.51 X10*6/uL (4.20-5.50); Red Cell Distribution Width 14.7 % (11.0-16.0); White Blood Count 9.6 X10*3/uL (4.8-10.8)
[2021-03-24 10:59] LABS: Alanine Aminotransferase 21 U/L (0-31); Albumin Level 4.3 g/dL (3.5-5.0); Alkaline Phosphatase 112 U/L (39-117); Anion Gap 10 (12-20); Aspartate Amino Transferase 17 U/L (5-31); Bilirubin Total 0.3 mg/dL (0.0-1.0); Blood Urea Nitrogen 10 mg/dL (9-16); Calcium 9.8 mg/dL (8.4-10.2); Carbon Dioxide 28 mmol/L (22-29); Chloride 106 mmol/L (96-108); Estimated Glomerular Filt Rate > 60; Glucose Random 97 mg/dL (60-115); Iron 50 mcg/dL (30-160); Percent Iron Saturation 15 % (15-50); Potassium 4.6 mmol/L (3.3-5.1); Sodium 139 mmol/L (135-145); Total Iron Binding Capacity 325 mcg/dL (228-428); Total Protein 7.4 g/dL (6.5-8.0); Unsaturated Iron Binding 275 ug/dL
[2021-03-24 11:20] LABS: TSH reflex Free T4 0.65 uIU/mL (0.32-4.0)
[2021-03-24 11:24] LABS: Erythrocyte Sedimentation Rate 12 MM/HR (0-20)
== END 2021-03-24 09:01 | disposition home or self-care (01) ==
LOC: HO.WFDLDS 09:00
PROVIDERS: Visit Provider Family Medicine
DX: Z00.00 Encounter for general adult medical examination without abnormal findings (principal); L65.9 Nonscarring hair loss, unspecified
CPT/HCPCS: 36415; 80053; 83540; 84443; 85025; 85652

== ENCOUNTER 2021-03-29 08:40 | Outpatient (REF) | payer OTHER, SELFPAY ==
[2021-03-29 10:54] LABS: HCG Quantitative < 2 mIU/mL
[2021-03-29 15:53] LABS: CT PCR NOT DETECTED (Not Detect.); NG PCR NOT DETECTED (Not Detect.)
[2021-03-30 08:27] LABS: DHEA Sulfate 239 mcg/dL (18-391)
[2021-03-30 08:40] LABS: BV Int Neg Control Negative (Negative); BV Int Pos Control Positive (Positive)
[2021-03-30 20:27] LABS: Prolactin 10.3 ng/mL
[2021-04-04 17:01] LABS: Testosterone, Free 5.3 pg/mL (0.1-6.4); Testosterone, Total 33 ng/dL (2-45)
== END 2021-03-29 08:41 | disposition home or self-care (01) ==
LOC: HO.LAB 08:40
PROVIDERS: Advanced Practice Midwife; Family Medicine; Hospitalist; Visit Provider Obstetrics & Gynecology
DX: Z01.419 Encounter for gynecological examination (general) (routine) without abnormal findings (principal); Z11.3 Encounter for screening for infections with a predominantly sexual mode of transmission; Z20.822 Contact with and (suspected) exposure to COVID-19; N91.5 Oligomenorrhea, unspecified; B34.9 Viral infection, unspecified; B37.3 Candidiasis of vulva and vagina
CPT/HCPCS: 36415; 80048; 80061; 80076; 82627; 83498; 84146; 84402; 84403; 84443; 84702; 85027; 87480; 87491; 87510; 87591; 87660; 99212; U0005

== ENCOUNTER → 2021-04-21 09:20 | Outpatient (BNVA) | payer OTHER, SELFPAY | PROVIDERS: PCP Hospitalist; Referring Provider Hospitalist; Visit Provider Nurse Practitioner | DX: K21.9 Gastro-esophageal reflux disease without esophagitis (principal); R19.7 Diarrhea, unspecified; R14.0 Abdominal distension (gaseous); Z79.899 Other long term (current) drug therapy | CPT/HCPCS: 99202 ==

== ENCOUNTER 2021-04-29 17:56 | Inpatient (IN) | payer OTHER, SELFPAY ==
--- NOTE | ~2021-04-29 | CT_ITS ---
EXAMINATION: CT ABDOMEN AND PELVIS WITH CONTRAST CLINICAL INFORMATION: Left lower quadrant abdominal pain. COMPARISON: 01/31/2021 TECHNIQUE: Multidetector volumetric images were obtained from the superior aspect of the liver through the pubic symphysis following administration 85 mL of Omnipaque 350 intravenous contrast. Sagittal and coronal reformatted images were obtained on the technologist's workstation. Oral contrast: No This CT examination was performed using dose optimization techniques as appropriate, variously including the following: *Automated exposure control *Adjustment of mA and/or kV according to patient size (this includes techniques or standardized protocols for targeted exams where dose is matched to indication/reason for exam; i.e. extremities or head) *Use of iterative reconstruction technique DLP: 1036 mGy-cm FINDINGS: LUNG BASES: The visualized lung bases are unremarkable. LIVER, GALLBLADDER, AND BILIARY TREE: The liver is normal in size, shape, and attenuation. No focal hepatic lesion or biliary ductal dilatation is present. The gallbladder is unremarkable with no evidence of radiopaque gallstones, gallbladder wall thickening, or obvious pericholecystic inflammatory changes. PANCREAS: Unremarkable. SPLEEN: Unremarkable. ADRENAL GLANDS: Unremarkable. KIDNEYS AND URETERS: The kidneys are normal in size, shape, and attenuation. No hydronephrosis, hydroureter, or calculi seen. No perinephric stranding. BLADDER: Unremarkable. GASTROINTESTINAL TRACT: The stomach is unremarkable. Normal caliber small bowel. There is no obstruction. There is colonic diverticulosis. There is focal wall thickening with adjacent inflammation involving the sigmoid colon. This is consistent with diverticulitis. No free air. No fluid collection. The remainder of the colon is unremarkable. Normal appendix. ABDOMINAL WALL: No significant hernia is appreciated. LYMPH NODES: Normal. VASCULAR: Unremarkable. PELVIC VISCERA: Anteverted uterus. Prominent appearance of the right ovary. Peripherally enhancing 1.9 cm follicle noted. OSSEOUS STRUCTURES: No acute or suspicious osseous abnormality. CT/CT abdomen pelvis w con IMPRESSION: Sigmoid diverticulitis. No free air or fluid collection.
--- NOTE | ~2021-04-29 | US_ITS ---
EXAMINATION: US PELVIS CLINICAL INFORMATION: Left lower quadrant pain. Last menstrual period 2 weeks ago. COMPARISON: CT 01/31/2021 TECHNIQUE: Ultrasound of the pelvis is performed using both transabdominal and transvaginal transducers along with Doppler. Transvaginal imaging is performed due to inadequate visualization transabdominally. FINDINGS: Uterus: The uterus is anteverted and measures 7.5 x 3.1 x 3.9 cm. The double wall endometrial thickness is 8 mm. The uterus is smooth in contour and has normal myometrial echogenicity. No visible fibroid. Adnexa: Both ovaries are visualized. There is normal color flow to the adnexa. There is no ovarian torsion. There is no pelvic ascites or fluid collection. Right ovary measures 3.8 x 3.1 x 3.3 cm. Left ovary measures 3.2 x 3.2 x 2.2 cm. Note is made of a non peristalsing bowel segments seen within the area of pain in the left lower quadrant with pain upon transducer pressure. US/US pelvic and transvaginal IMPRESSION: There is a non peristalsing segment of bowel in the left lower quadrant that demonstrated rebound pain with transducer pressure. The loop did not appear to be overly distended, however this finding is of uncertain etiology. Consider follow-up with CT for additional assessment as clinically warranted.
[2021-04-29 17:58] VITALS: BP 117/79; PULSE 133; RESP 20; TEMP 37.1; O2SAT 99; BMI 35.8
--- NOTE | 2021-04-29 18:22 | ED_ITS ---
HPI - Abdominal Pain General Chief Complaint: Abdominal Pain Stated Complaint: stomach pains Time Seen by Provider: 04/29/21 18:22 Source: patient Mode of arrival: ambulatory Limitations: no limitations History of Present Illness HPI narrative: Patient with no significant abdominal complaints noticed sudden onset of pain in left lower quadrant since morning today which got worse specially on ambulation slight nausea no vomiting no fever no chills no urinary complaints no diarrhea Related Data Previous Rx's Medication Instructions Recorded albuterol sulfate 90 mcg/actuation 2 puff PO Q6H PRN 30 Days #8.5 g 10/19/20 aerosol inhaler cetirizine 10 mg tablet (Zyrtec) 10 mg PO DAILY 90 Days #90 tab 12/15/20 omeprazole 20 mg capsule,delayed 40 mg PO DAILY 30 Days #60 cap 01/27/21 release hydroxyzine HCl 25 mg tablet 25 mg PO Q6H PRN #30 tab 02/06/21 dicyclomine 10 mg capsule 10 mg PO QID 30 Days #120 cap 04/21/21 Allergies Allergy/AdvReac Type Severity Reaction Status Date / Time adhesive tape [ADHESIVE TAPE] Allergy Intermediate RASH Verified 04/29/21 17:58 detergents Allergy Severe Hives, Uncoded 03/09/21 09:47 face swelling Medical tape Allergy Intermediate hives Uncoded 03/09/21 09:47 Review of Systems Review of Systems Yes all other systems are reviewed and are negative Physical Exam Vital Signs: Vital Signs: Last Vital Signs Temp 98.7 F 04/29/21 17:58 Pulse 102 H 04/29/21 20:30 Resp 18 04/29/21 20:30 BP 131/77 04/29/21 20:30 Pulse Ox 99 04/29/21 20:30 Body Mass Index 35.8 Appearance: Alert. Oriented X3. No acute distress. Eyes: No pallor or icterus ENT: Pharynx normal. Oral Mucosa moist Neck: Normal inspection. Neck supple. CVS: Normal heart rate and rhythm. Pulses normal. Respiratory: No respiratory distress. Equal air entry bilateral, no wheezing/rales/rhonchi Abdomen: Soft , deep tenderness left lower quadrant and suprapubic area Bowel sounds are present, no mass palpable, no CVA tenderness Skin: Skin warm and dry. Normal skin color. Normal skin turgor. Extremities: No lower extremity edema. No calf tenderness Neuro: Oriented X 3. MDM - Abdominal Pain MDM Narrative Medical decision making narrative: Patient with left lower quadrant pain ultrasound negative with leukocytosis CT scan showed uncomplicated sigmoid diverticulitis patient is uncomfortable pain increases on ambulation and eating anything. Will admit patient for IV antibiotics and hydration Differential Diagnosis Differential diagnosis: Likely abdominal pain Lab Data Attestation: I reviewed the patient's lab results. Result diagrams: 04/29/21 18:45 04/29/21 18:45 Labs: Lab Results 04/29/21 04/29/21 04/29/21 Range/Units 18:27 18:27 18:45 WBC 17.5 H (4.8-10.8) X10*3/uL RBC 4.23 (4.20-5.50) X10*6/uL Hgb 11.7 L (12.0-16.0) g/dl Hct 35.2 L (37.0-47.0) % MCV 83.2 (80.0-98.0) fL MCH 27.7 (27.0-33.0) pg MCHC 33.2 (31.0-35.0) g/dl RDW 14.6 (11.0-16.0) % Plt Count 388 (160-400) X10*3/uL MPV 8.8 L (9.4-12.3) fL Immature Gran % (Auto) 0.3 (0.0-0.4) % Neut % (Auto) 76.8 H (45-73) % Lymph % (Auto) 13.3 L (20-40) % [place] % (Auto) 8.5 (2-11) % Eos % (Auto) 0.9 (0-4) % Baso % (Auto) 0.2 (0-2) % Lymph # (Auto) 2.3 (1.2-4.9) X10*3/uL [place] # (Auto) 1.5 H (0.1-1.2) X10*3/uL Eos # (Auto) 0.2 (0.0-0.4) X10*3/uL Baso # (Auto) 0.0 (0.0-0.2) X10*3/uL Abs Immat Gran (auto) 0.06 H (0.00-0.03) X10*3/uL Absolute Neuts (auto) 13.5 H (2.0-8.3) x10*3/uL Absolute Nucleated RBC 0.000 (0.0-0.012) X10*3/uL Nucleated RBC % (auto) 0.0 (0.0-0.2) /100WBC Sodium (135-145) mmol/L Potassium (3.3-5.1) mmol/L Chloride (96-108) mmol/L Carbon Dioxide (22-29) mmol/L Anion Gap (12-20) BUN (9-16) mg/dL Creatinine (0.5-1.4) mg/dL Estim Creat Clear Calc Estimated GFR Random Glucose (60-115) mg/dL Lactic Acid (0.5-2.0) mmol/L Calcium (8.4-10.2) mg/dL Urine Color STRAW Urine Appearance CLEAR Urine pH 7.5 (5.0-8.0) Ur Specific [place] 1.010 (1.005-1.025) Urine Protein NEG (NEG-TRACE) MG/DL Urine Glucose (UA) NEG (NEG) MG/DL Urine Ketones NEG (NEG) MG/DL Urine Blood NEG (NEG) Urine Nitrite NEG (NEG) Ur Leukocyte Esterase NEG (NEG) Urine Test NEGATIVE (NEGATIVE) 04/29/21 04/29/21 Range/Units 18:45 21:02 WBC (4.8-10.8) X10*3/uL RBC (4.20-5.50) X10*6/uL Hgb (12.0-16.0) g/dl Hct (37.0-47.0) % MCV (80.0-98.0) fL MCH (27.0-33.0) pg MCHC (31.0-35.0) g/dl RDW (11.0-16.0) % Plt Count (160-400) X10*3/uL MPV (9.4-12.3) fL Immature Gran % (Auto) (0.0-0.4) % Neut % (Auto) (45-73) % Lymph % (Auto) (20-40) % [place] % (Auto) (2-11) % Eos % (Auto) (0-4) % Baso % (Auto) (0-2) % Lymph # (Auto) (1.2-4.9) X10*3/uL [place] # (Auto) (0.1-1.2) X10*3/uL Eos # (Auto) (0.0-0.4) X10*3/uL Baso # (Auto) (0.0-0.2) X10*3/uL Abs Immat Gran (auto) (0.00-0.03) X10*3/uL Absolute Neuts (auto) (2.0-8.3) x10*3/uL Absolute Nucleated RBC (0.0-0.012) X10*3/uL Nucleated RBC % (auto) (0.0-0.2) /100WBC Sodium 140 (135-145) mmol/L Potassium 4.0 (3.3-5.1) mmol/L Chloride 107 (96-108) mmol/L Carbon Dioxide 26 (22-29) mmol/L Anion Gap 11 L (12-20) BUN 7 L (9-16) mg/dL Creatinine 0.75 (0.5-1.4) mg/dL Estim Creat Clear Calc 120.8 Estimated GFR > 60 Random Glucose 86 (60-115) mg/dL Lactic Acid 0.7 (0.5-2.0) mmol/L Calcium 9.2 D (8.4-10.2) mg/dL Urine Color Urine Appearance Urine pH (5.0-8.0) Ur Specific [place] (1.005-1.025) Urine Protein (NEG-TRACE) MG/DL Urine Glucose (UA) (NEG) MG/DL Urine Ketones (NEG) MG/DL Urine Blood (NEG) Urine Nitrite (NEG) Ur Leukocyte Esterase (NEG) Urine Test (NEGATIVE) Discharge Plan Discharge Clinical Impression: Diverticulitis of sigmoid colon Patient Disposition: Admitted As Inpatient [facility] Past Medical History Medical History Asthma, mild intermittent, well-controlled Cervical cancer screening Chronic GERD Etonogestrel implant for control Family history of breast cancer gene mutation in first degree relative Obesity (BMI 35.0-39.9 without comorbidity) Otitis media PCOS (polycystic ovarian syndrome) Pharyngitis Serous otitis media Sinus infection Sore throat Viral illness Yeast infection Surgical History History of tonsillectomy [place] teeth extracted Family History Family History Mother Breast cancer Father No problems noted. Social History Social History Housing: House Alcohol intake: never Patient Tobacco Use Status: Never used Tobacco e-Cigarette/Vaping Use: Never Used Second Hand Smoke Exposure: No Advance Directives: No Advance Directives Information Provided: No Patient : No service: No Current occupational status: employed Sexual orientation: Straight/Heterosexual Gender identity: Female
[2021-04-29 18:30] VITALS: PULSE 120
[2021-04-29 18:45] LABS: Appearance Urine CLEAR; Color Urine STRAW; Glucose Urine UA NEG (NEG); Leukocyte Esterase Urine NEG (NEG); Nitrite Urine NEG (NEG); PH 7.5 (5.0-8.0); Urine Blood NEG (NEG); Urine Ketones NEG (NEG); Urine Protein NEG (NEG-TRACE)
[2021-04-29 18:47] LABS: UPreg QC Valid YES; Urine Pregnancy NEGATIVE (NEGATIVE)
[2021-04-29] MEDS: Ketorolac Tromethamine 15 MG/ML VIAL 30 MG IVPUSH (18:47)
[2021-04-29 18:50] LABS: MANUAL DIFF FLAG NO
[2021-04-29 18:54] LABS: Basophils Percent Auto 0.2 % (0-2); Eosinophils Absolute Auto 0.2 X10*3/uL (0.0-0.4); Eosinophils Percent Auto 0.9 % (0-4); Hematocrit 35.2 % (37.0-47.0); Hemoglobin 11.7 g/dl (12.0-16.0); Imm Gran Abs Auto 0.06 X10*3/uL (0.00-0.03); Imm Gran Pct Auto 0.3 % (0.0-0.4); Lymphocytes Absolute Auto 2.3 X10*3/uL (1.2-4.9); Lymphocytes Percent Auto 13.3 % (20-40); Mean Corpuscular HGB Conc 33.2 g/dl (31.0-35.0); Mean Corpuscular Hemoglobin 27.7 pg (27.0-33.0); Mean Corpuscular Volume 83.2 fL (80.0-98.0); Mean Platelet Volume 8.8 fL (9.4-12.3); Monocytes Absolute Auto 1.5 X10*3/uL (0.1-1.2); Monocytes Percent Auto 8.5 % (2-11); Neutrophils Absolute Auto 13.5 x10*3/uL (2.0-8.3); Neutrophils Percent Auto 76.8 % (45-73); Platelet Count 388 X10*3/uL (160-400); Red Blood Count 4.23 X10*6/uL (4.20-5.50); Red Cell Distribution Width 14.6 % (11.0-16.0); White Blood Count 17.5 X10*3/uL (4.8-10.8)
[2021-04-29 19:08] LABS: Anion Gap 11 (12-20); Blood Urea Nitrogen 7 mg/dL (9-16); Calcium 9.2 mg/dL (8.4-10.2); Carbon Dioxide 26 mmol/L (22-29); Chloride 107 mmol/L (96-108); Creatinine Clr Calc Pharmacy 120.8; Estimated Glomerular Filt Rate > 60; Glucose Random 86 mg/dL (60-115); Sodium 140 mmol/L (135-145)
[2021-04-29 20:30] VITALS: BP 131/77; PULSE 102; RESP 18; O2SAT 99
[2021-04-29] MEDS: 0.9 % Sodium Chloride 1,000 ML 999 ML IVCONT (21:12)
[2021-04-29 21:22] LABS: Lactic Acid 0.7 mmol/L (0.5-2.0)
[2021-04-29] MEDS: iohexoL 350 MG/ML 100 ML INFUS..BTL 85 ML IV (21:32)
[2021-04-29] MEDS: Piperacillin Sodium/Tazobactam 3.375 GM in 0.9 % Sodium Chloride 50 ML IV (21:40)
--- NOTE | 2021-04-29 23:38 | PM.IMHP ---
History of Present Illness Date of Service: 04/29/21 Chief Complaint: Abdominal pain 21-year-old female with a past medical history of GERD, PCOS, anxiety, panic attacks presented to the hospital with a chief complaint of abdominal pain. Patient reported that she had abdominal pain for 1 day started on the left lower quadrant, sharp in nature, nonradiating, no associated nausea or vomiting. Had mild diarrhea. Patient reports she initially felt constipated. Denies any fevers, cough. Denies any urinary symptoms. Review of all other systems is negative except mentioned above ER course: Per ER team patient noted of left lower quadrant abdominal tenderness; CT scan consistent with sigmoid diverticulitis-uncomplicated; given antibiotics. Admitted to the hospital for further management. [facility] Medical History Asthma, mild intermittent, well-controlled Cervical cancer screening Chronic GERD Etonogestrel implant for control Family history of breast cancer gene mutation in first degree relative Obesity (BMI 35.0-39.9 without comorbidity) Otitis media PCOS (polycystic ovarian syndrome) Pharyngitis Serous otitis media Sinus infection Sore throat Viral illness Yeast infection Family History Mother Breast cancer Father No problems noted. Pertinent family history: As mentioned above Surgical History History of tonsillectomy [facility] teeth extracted Social History Housing: House Alcohol intake: never Patient Tobacco Use Status: Never used Tobacco e-Cigarette/Vaping Use: Never Used Second Hand Smoke Exposure: No Advance Directives: No Advance Directives Information Provided: No Patient : No service: No Current occupational status: employed Sexual orientation: Straight/Heterosexual Gender identity: Female Meds Allergies Allergy/AdvReac Type Severity Reaction Status Date / Time adhesive tape [ADHESIVE TAPE] Allergy Intermediate RASH Verified 04/29/21 17:58 detergents Allergy Severe Hives, Uncoded 03/09/21 09:47 face swelling Medical tape Allergy Intermediate hives Uncoded 03/09/21 09:47 Active Medications: Current Medications Acetaminophen (Acetaminophen 325 Mg Tablet) 650 mg PO Q6H PRN PRN Reason: Pain, Mild (Pain Scale 1-3) Hydromorphone HCl (Hydromorphone Hcl 0.5 Mg/0.5 Ml Syringe) 0.5 mg IVPUSH Q4H PRN; Protocol PRN Reason: Pain, Severe (Pain Scale 7-10) Dextrose/Sodium Chloride (D51/2ns) 1,000 mls @ 100 mls/hr IVCONT .Q10H FRANKIE Ceftriaxone Sodium 1 gm/ (Sodium Chloride) 50 mls @ 100 mls/hr IV Q24H FRANKIE Metronidazole (Flagyl) 500 mg in 100 mls @ 100 mls/hr IV Q8H FRANKIE Melatonin (Melatonin 3 Mg Tablet) 6 mg PO BEDTIME PRN PRN Reason: Insomnia Sodium Chloride (0.9 % Sodium Chloride Flush 3 Ml Syringe) 3 ml IVFLUSH QSHIFT FRANKIE Physical Exam Vital Signs and Narrative: Vital Signs: Last Vital Signs Temp 98.7 F 04/29/21 17:58 Pulse 102 H 04/29/21 20:30 Resp 18 04/29/21 20:30 BP 131/77 04/29/21 20:30 Pulse Ox 99 04/29/21 20:30 Body Mass Index 35.8 Gen: Appears be in no acute distress HEENT: NCAT, Moist mucosa. Pulmonary: Vesicular breath sounds, fair air entry CVS: Normal S1-S2 Abdomen: BS+, Soft, tender in the left lower quadrant; no guarding no rigidity Extremities: Warm well perfused Neuro: Alert and awake. Results Labs CBC and Chem 7: 04/29/21 18:45 04/29/21 18:45 Labs: Laboratory Results - last 24 hr 04/29/21 04/29/21 04/29/21 18:27 18:27 18:45 MCV 83.2 MCH 27.7 MCHC 33.2 RDW 14.6 Plt Count 388 MPV 8.8 L Immature Gran % (Auto) 0.3 Neut % (Auto) 76.8 H Lymph % (Auto) 13.3 L [place] % (Auto) 8.5 Eos % (Auto) 0.9 Baso % (Auto) 0.2 Lymph # (Auto) 2.3 [place] # (Auto) 1.5 H Eos # (Auto) 0.2 Baso # (Auto) 0.0 Abs Immat Gran (auto) 0.06 H Absolute Neuts (auto) 13.5 H Absolute Nucleated RBC 0.000 Nucleated RBC % (auto) 0.0 Anion Gap Estim Creat Clear Calc Estimated GFR Random Glucose Lactic Acid Calcium Urine Color STRAW Urine Appearance CLEAR Urine pH 7.5 Ur Specific [place] 1.010 Urine Protein NEG Urine Glucose (UA) NEG Urine Ketones NEG Urine Blood NEG Urine Nitrite NEG Ur Leukocyte Esterase NEG Urine Test NEGATIVE 04/29/21 04/29/21 18:45 21:02 MCV MCH MCHC RDW Plt Count MPV Immature Gran % (Auto) Neut % (Auto) Lymph % (Auto) [place] % (Auto) Eos % (Auto) Baso % (Auto) Lymph # (Auto) [place] # (Auto) Eos # (Auto) Baso # (Auto) Abs Immat Gran (auto) Absolute Neuts (auto) Absolute Nucleated RBC Nucleated RBC % (auto) Anion Gap 11 L Estim Creat Clear Calc 120.8 Estimated GFR > 60 Random Glucose 86 Lactic Acid 0.7 Calcium 9.2 D Urine Color Urine Appearance Urine pH Ur Specific [place] Urine Protein Urine Glucose (UA) Urine Ketones Urine Blood Urine Nitrite Ur Leukocyte Esterase Urine Test Imaging Radiologist's Impressions: Impressions Pelvic/Transvag US 04/29/21 18:35 IMPRESSION: There is a non peristalsing segment of bowel in the left lower quadrant that demonstrated rebound pain with transducer pressure. The loop did not appear to be overly distended, however this finding is of uncertain etiology. Consider follow-up with CT for additional assessment as clinically warranted. Abdomen/Pelvis CT 04/29/21 20:49 IMPRESSION: Sigmoid diverticulitis. No free air or fluid collection. Assessment and Plan (1) Diverticulitis of sigmoid colon: Status: Acute 21-year-old female with a past medical history of GERD, PCOS, anxiety, panic attacks presented to the hospital with a chief complaint of abdominal pain. Noted to have acute sigmoid diverticulitis. Admitted for further management. Acute sigmoid diverticulitis: Uncomplicated as per the CT report. Continue ceftriaxone and Flagyl. NPO for now. Advanced diet as tolerated once the pain improves. Will also consult General surgery. Patient reports that she has an appointment with GI as outpatient. GI prophylaxis: Pepcid DVT prophylaxis: SCD boots Code status: Full code Quality Stroke Does the patient have a stroke diagnosis?: No VTE Prior VTE?: No VTE Risk Level:: Medical - low VTE Device Contraindication: N/A - Device Ordered VTE Drug Contraindication: Treatment Not Indicated
[2021-04-30] MEDS: metroNIDAZOLE/NS 500 MG/100 ML PIGGYBACK 100 MG IV ×4 (00:49→23:32)
[2021-04-30] MEDS: cefTRIAXone sodium 1 GM in 0.9 % Sodium Chloride 50 ML IV ×4 (00:51→23:31)
[2021-04-30] MEDS: 0.9 % Sodium Chloride Flush 3 ML SYRINGE IVFLUSH (02:17)
[2021-04-30] MEDS: diphenhydrAMINE HCL 25 MG TABLET PO (02:17)
[2021-04-30] MEDS: Dextrose 5 % and 0.45 % NaCl 1,000 ML 100 ML IVCONT (02:21)
[2021-04-30 05:53] VITALS: BP 117/71; PULSE 89; RESP 18; O2SAT 98
[2021-04-30 06:17] LABS: COVID-19 Test Negative (Negative)
[2021-04-30 06:19] LABS: MANUAL DIFF FLAG NO
[2021-04-30 06:25] LABS: Basophils Percent Auto 0.3 % (0-2); Eosinophils Absolute Auto 0.2 X10*3/uL (0.0-0.4); Eosinophils Percent Auto 1.9 % (0-4); Hematocrit 33.7 % (37.0-47.0); Hemoglobin 10.9 g/dl (12.0-16.0); Imm Gran Abs Auto 0.04 X10*3/uL (0.00-0.03); Imm Gran Pct Auto 0.3 % (0.0-0.4); Lymphocytes Absolute Auto 2.8 X10*3/uL (1.2-4.9); Lymphocytes Percent Auto 21.9 % (20-40); Mean Corpuscular HGB Conc 32.3 g/dl (31.0-35.0); Mean Corpuscular Hemoglobin 27.5 pg (27.0-33.0); Mean Corpuscular Volume 85.1 fL (80.0-98.0); Mean Platelet Volume 8.9 fL (9.4-12.3); Monocytes Absolute Auto 1.2 X10*3/uL (0.1-1.2); Monocytes Percent Auto 9.6 % (2-11); Neutrophils Absolute Auto 8.5 x10*3/uL (2.0-8.3); Platelet Count 360 X10*3/uL (160-400); Red Blood Count 3.96 X10*6/uL (4.20-5.50); Red Cell Distribution Width 14.6 % (11.0-16.0); White Blood Count 12.9 X10*3/uL (4.8-10.8)
[2021-04-30 06:41] LABS: Anion Gap 12 (12-20); Blood Urea Nitrogen 6 mg/dL (9-16); Calcium 8.6 mg/dL (8.4-10.2); Carbon Dioxide 23 mmol/L (22-29); Chloride 107 mmol/L (96-108); Creatinine Clr Calc Pharmacy 117.6; Estimated Glomerular Filt Rate > 60; Glucose Random 98 mg/dL (60-115); Potassium 3.6 mmol/L (3.3-5.1); Sodium 138 mmol/L (135-145)
[2021-04-30 08:20] LABS: C Reactive Protein 7.26 mg/dL (< or = 0.50)
[2021-04-30] MEDS: Famotidine/PF 20 MG/2 ML VIAL IVPUSH (09:21)
[2021-04-30] MEDS: Acetaminophen 325 MG TABLET 650 MG PO (09:21)
--- NOTE | 2021-04-30 09:35 | PHA.MEDREC ---
Pharmacy Consult ? Medication Reconciliation Pharmacy has completed the medication reconciliation. Per patient, she has not started dicyclomine yet (filled 04/21 but never picked up) Thanks Barron Quintana Pharm D
--- NOTE | 2021-04-30 10:14 | P.PNIM_ITS ---
Subjective Subjective Date of Service: 04/30/21 Interval History: LLQ pain improved no diarrhea no constipation no fever very hungry no nausea Review of Systems Review of Systems: Yes all other systems are reviewed and are negative Physical Exam Vital Signs: Vital Signs: Last Vital Signs Temp 98.7 F 04/29/21 17:58 Pulse 89 04/30/21 05:53 Resp 18 04/30/21 05:53 BP 117/71 04/30/21 05:53 Pulse Ox 98 04/30/21 05:53 Body Mass Index 35.8 Gen: in no acute distress HEENT: sclera anicteric, moist mucus membranes Neck: supple Lungs: clear to auscultation bilaterally Heart: regular rate and rhythm, no murmurs Abd: soft, mild LLQ tenderness without rebound or guarding Ext: no edema Skin: warm/well-perfused Neuro: alert and oriented x3, no focal findings Psych: appropriate affect Objective Data Active Medications Acetaminophen (Acetaminophen 325 Mg Tablet) 650 mg PO Q6H PRN PRN Reason: Pain, Mild (Pain Scale 1-3) Last Admin: 04/30/21 09:21 Dose: 650 mg Documented by: ALEXIS Albuterol Sulfate (Albuterol Sulfate 90 Mcg 8 Gm Inhaler) 2 puff INHALE Q6H PRN PRN Reason: shortness of breath or wheezing Famotidine (Famotidine/Pf 20 Mg/2 Ml Vial) 20 mg IVPUSH BID [facility] Last Admin: 04/30/21 09:21 Dose: 20 mg Documented by: ALEXIS Hydromorphone HCl (Hydromorphone Hcl 0.5 Mg/0.5 Ml Syringe) 0.5 mg IVPUSH Q4H PRN; Protocol PRN Reason: Pain, Severe (Pain Scale 7-10) Hydroxyzine HCl (Hydroxyzine Hcl 25 Mg Tablet) 25 mg PO Q6H PRN PRN Reason: Anxiety Dextrose/Sodium Chloride (D51/2ns) 1,000 mls @ 100 mls/hr IVCONT .Q10H [facility] Last Admin: 04/30/21 02:21 Dose: 100 mls/hr Documented by: KELSEY Ceftriaxone Sodium 1 gm/ (Sodium Chloride) 50 mls @ 100 mls/hr IV Q24H [facility] Last Infusion: 04/30/21 02:16 Dose: 0 mls/hr Documented by: KELSEY Metronidazole (Flagyl) 500 mg in 100 mls @ 100 mls/hr IV Q8H [facility] Last Infusion: 04/30/21 09:13 Dose: 0 mls/hr Documented by: ALEXIS Ketorolac Tromethamine (Ketorolac Tromethamine 15 Mg/Ml Vial) 15 mg IVPUSH Q6H PRN PRN Reason: severe pain Loratadine (Loratadine 10 Mg Tablet) 10 mg PO DAILY PRN PRN Reason: Allergic Symptoms Melatonin (Melatonin 3 Mg Tablet) 6 mg PO BEDTIME PRN PRN Reason: Insomnia Omeprazole (Omeprazole 40 Mg Capsule.Dr) 40 mg PO DAILY [facility] Sodium Chloride (0.9 % Sodium Chloride Flush 3 Ml Syringe) 3 ml IVFLUSH QSHIFT [facility] Last Admin: 04/30/21 07:20 Dose: Not Given Documented by: ALEXIS Non-Admin Reason: Med Not Available Labs CBC & Chem 7: 04/30/21 06:07 04/30/21 06:07 Labs: Laboratory Results - last 24 hr 04/29/21 04/29/21 04/29/21 18:27 18:27 18:45 MCV 83.2 MCH 27.7 MCHC 33.2 RDW 14.6 Plt Count 388 MPV 8.8 L Immature Gran % (Auto) 0.3 Neut % (Auto) 76.8 H Lymph % (Auto) 13.3 L [place] % (Auto) 8.5 Eos % (Auto) 0.9 Baso % (Auto) 0.2 Lymph # (Auto) 2.3 [place] # (Auto) 1.5 H Eos # (Auto) 0.2 Baso # (Auto) 0.0 Abs Immat Gran (auto) 0.06 H Absolute Neuts (auto) 13.5 H Absolute Nucleated RBC 0.000 Nucleated RBC % (auto) 0.0 Anion Gap Estim Creat Clear Calc Estimated GFR Random Glucose Lactic Acid Calcium C-Reactive Protein Urine Color STRAW Urine Appearance CLEAR Urine pH 7.5 Ur Specific [place] 1.010 Urine Protein NEG Urine Glucose (UA) NEG Urine Ketones NEG Urine Blood NEG Urine Nitrite NEG Ur Leukocyte Esterase NEG Urine Test NEGATIVE COVID-19 (TRES) COVID-19 Clin Com 04/29/21 04/29/21 04/30/21 18:45 21:02 05:51 MCV MCH MCHC RDW Plt Count MPV Immature Gran % (Auto) Neut % (Auto) Lymph % (Auto) [place] % (Auto) Eos % (Auto) Baso % (Auto) Lymph # (Auto) [place] # (Auto) Eos # (Auto) Baso # (Auto) Abs Immat Gran (auto) Absolute Neuts (auto) Absolute Nucleated RBC Nucleated RBC % (auto) Anion Gap 11 L Estim Creat Clear Calc 120.8 Estimated GFR > 60 Random Glucose 86 Lactic Acid 0.7 Calcium 9.2 D C-Reactive Protein Urine Color Urine Appearance Urine pH Ur Specific [place] Urine Protein Urine Glucose (UA) Urine Ketones Urine Blood Urine Nitrite Ur Leukocyte Esterase Urine Test COVID-19 (TRES) Negative COVID-19 Clin Com See Note 04/30/21 04/30/21 06:07 06:07 MCV 85.1 MCH 27.5 MCHC 32.3 RDW 14.6 Plt Count 360 MPV 8.9 L Immature Gran % (Auto) 0.3 Neut % (Auto) 66.0 Lymph % (Auto) 21.9 [place] % (Auto) 9.6 Eos % (Auto) 1.9 Baso % (Auto) 0.3 Lymph # (Auto) 2.8 [place] # (Auto) 1.2 Eos # (Auto) 0.2 Baso # (Auto) 0.0 Abs Immat Gran (auto) 0.04 H Absolute Neuts (auto) 8.5 H Absolute Nucleated RBC 0.000 Nucleated RBC % (auto) 0.0 Anion Gap 12 Estim Creat Clear Calc 117.6 Estimated GFR > 60 Random Glucose 98 Lactic Acid Calcium 8.6 D C-Reactive Protein 7.26 H Urine Color Urine Appearance Urine pH Ur Specific [place] Urine Protein Urine Glucose (UA) Urine Ketones Urine Blood Urine Nitrite Ur Leukocyte Esterase Urine Test COVID-19 (TRES) COVID-19 Clin Com Assessment and Plan (1) Diverticulitis of sigmoid colon: Status: Acute Assessment and Plan: hospital d#2 21yo RF with GERD, PCOS, anxiety/panic disorder, IBS for which she is seen at [facility] presented with abd pain, admitted with sigmoid diverticulitis # sigmoid diverticulitis - ceftriaxone + metronidazole d#2, GI + Gen Surg consults, clear diet to advance as tolerated # GERD - PPI # VTE ppx - SCDs Quality Stroke Does the patient have a stroke diagnosis?: No VTE Prior VTE?: No VTE Risk Level:: Medical - low VTE Device Contraindication: N/A - Device Ordered VTE Drug Contraindication: Treatment Not Indicated
[2021-04-30] MEDS: 0.9 % Sodium Chloride 1,000 ML 125 ML IVCONT ×2 (11:07→22:40)
--- NOTE | 2021-04-30 11:40 | CONS_ITS ---
DATE OF SERVICE: 04/30/2021 REFERRING PHYSICIAN: Gela Mallory MD REASON FOR CONSULTATION: Diverticulitis. HISTORY OF PRESENT ILLNESS: The patient is a pleasant 21-year-old woman who was admitted to the hospital after presenting to the emergency room yesterday with complaints of left lower quadrant pain. 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 She also had a low-grade fever to 99.8 at home. She had nausea but no vomiting. She was evaluated in the emergency department, where CT scanning showed uncomplicated sigmoid diverticulitis and admitted to the hospital. The patient feels better today. She is hungry and would like to eat. She has been seen in consultation by Dr. Sullivan. She has no prior history of diverticular disease. She has never undergone colonoscopy. She does have a history of reflux disease and IBS-type symptoms and has been treated with a proton pump inhibitor as an outpatient. PAST MEDICAL HISTORY: 1. Asthma. 2. Gastroesophageal reflux disease. 3. Elevated BMI. 4. Polycystic ovary syndrome. 5. Recent tonsillectomy for recurrent throat infections. CURRENT MEDICATIONS: Her current medication list is reviewed in the chart. ALLERGIES: SHE HAS NO REPORTED DRUG ALLERGIES. FAMILY HISTORY: Positive for breast cancer in her mother. SOCIAL HISTORY: There is no current tobacco, alcohol, or substance abuse. REVIEW OF SYSTEMS: SKIN: No pruritus. HEENT: Negative. CARDIOPULMONARY: She denies shortness of breath or chest pain. GASTROINTESTINAL: As above. GENITOURINARY: Negative. NEUROPSYCHIATRIC: Negative. PHYSICAL EXAMINATION: GENERAL: Shows a pleasant female, lying comfortably in bed. VITAL SIGNS: Reviewed in electronic medical record and are stable. SKIN: Anicteric. HEENT: Shows no scleral icterus. NECK: Without lymphadenopathy or thyromegaly. LUNGS: Clear. HEART: Shows regular rate and rhythm. S1, S2. No murmur. ABDOMEN: Soft without focal masses or tenderness. Bowel sounds are present. No organomegaly is noted. EXTREMITIES: Without edema. LABORATORY DATA: Shows a white blood cell count of 17.5 down to 12.9 today. DIAGNOSTIC DATA: CT scanning is reviewed. IMPRESSION: Diverticulitis. At this point, she seems clinically improved with antibiotic treatment. I discussed the natural history of diverticulitis. Her diet has been advanced to low residue, and I would recommend continuing antibiotics. Gradually, she can resume a high-fiber diet as an outpatient after she improves. I did recommend she follow up with her GI provider for colonoscopy approximately 8-12 weeks after her symptoms improved. Thanks for asking me to see her. I will follow her in the hospital with you. MD MILLIE Huntley/IRVIN / [id number]
[2021-04-30 13:30] VITALS: BP 110/65; PULSE 79; RESP 18; TEMP 36.9; O2SAT 100
--- NOTE | 2021-04-30 13:30 | P.CONGS_ITS ---
History of Present Illness Consult details Consult date: 04/30/21 Reason for consult: abdominal pain (Diverticulitis) Narrative: This is a 21-year-old female who presented to the emergency department yesterday with a 1 day history of severe left lower quadrant abdom inal pain and fever. She has a history of probable PCOS and initially thought the pain might be related to her ovary. She also has a history of irritable bowel syndrome and has been undergoing workup with a security solutions engineer. Onset of the left lower quadrant pain was preceded by several days of constipation. In the emergency department, white blood count was noted to be elevated at 17.[address] scan of the abdomen and pelvis was consistent with uncomplicated sigmoid diverticulitis. Family history is significant for diverticulitis in her mother. Her father has diverticulosis. Her recent past medical history also is significant for chronic strep pharyngitis and tonsillitis. She was on antibiotics fairly continuously for a period of about 6 months prior to undergoing tonsillectomy a couple of months ago. She notes that her security solutions engineer felt that the prolonged antibiotic use might be contributing to her IBS symptoms. Review of Systems Constitutional: Constitutional: Reports fever(s) and Reports weight loss (Intentional) Eyes: Eyes: Denies requires corrective lenses Cardiovascular: Cardiovascular: Reports chest pain (Anxiety induced) and Reports dyspnea on exertion (Exercise-induced, improved) Respiratory: Respiratory: Reports dyspnea on exertion (Exercise-induced, improved) Gastrointestinal: Gastrointestinal: Reports as per HPI Genitourinary: Comments: Irregular menses Musculoskeletal: Comments: Recent tendinitis thumb Psychiatric: Psychiatric: Reports anxiety Hematologic/Lymphatic: Hematologic/Lymphatic: Denies easy bleeding PMFSH Past Medical History Medical History Asthma, mild intermittent, well-controlled Cervical cancer screening Chronic GERD Etonogestrel implant for control Family history of breast cancer gene mutation in first degree relative Obesity (BMI 35.0-39.9 without comorbidity) Otitis media PCOS (polycystic ovarian syndrome) Pharyngitis Serous otitis media Sinus infection Sore throat Viral illness Yeast infection Family History Family History (Updated 04/30/21 @ 13:42 by Ann Sullivan MD) Mother Breast cancer Diverticulitis Father No problems noted. Surgical History Surgical History History of tonsillectomy [place] teeth extracted Social History Social History Housing: House Alcohol intake: never Patient Tobacco Use Status: Never used Tobacco e-Cigarette/Vaping Use: Never Used Second Hand Smoke Exposure: No Advance Directives: No Advance Directives Information Provided: No Patient : No service: No Current occupational status: employed Sexual orientation: Straight/Heterosexual Gender identity: Female Meds Allergies Allergy/AdvReac Type Severity Reaction Status Date / Time adhesive tape [ADHESIVE TAPE] Allergy Intermediate RASH Verified 04/29/21 17:58 detergents Allergy Severe Hives, Uncoded 03/09/21 09:47 face swelling Medical tape Allergy Intermediate hives Uncoded 03/09/21 09:47 Active Medications: Current Medications Acetaminophen (Acetaminophen 325 Mg Tablet) 650 mg PO Q6H PRN PRN Reason: Pain, Mild (Pain Scale 1-3) Last Admin: 04/30/21 09:21 Dose: 650 mg Documented by: Albuterol Sulfate (Albuterol Sulfate 90 Mcg 8 Gm Inhaler) 2 puff INHALE Q6H PRN PRN Reason: shortness of breath or wheezing Hydroxyzine HCl (Hydroxyzine Hcl 25 Mg Tablet) 25 mg PO Q6H PRN PRN Reason: Anxiety Ceftriaxone Sodium 1 gm/ (Sodium Chloride) 50 mls @ 100 mls/hr IV Q24H [facility] Last Infusion: 04/30/21 02:16 Dose: Infused Documented by: Metronidazole (Flagyl) 500 mg in 100 mls @ 100 mls/hr IV Q8H [facility] Last Infusion: 04/30/21 09:13 Dose: Infused Documented by: Sodium Chloride (Ns) 1,000 mls @ 125 mls/hr IVCONT .Q8H [facility] Stop: 05/01/21 02:29 Last Admin: 04/30/21 11:07 Dose: 125 mls/hr Documented by: Ketorolac Tromethamine (Ketorolac Tromethamine 15 Mg/Ml Vial) 15 mg IVPUSH Q6H PRN PRN Reason: severe pain Loratadine (Loratadine 10 Mg Tablet) 10 mg PO DAILY PRN PRN Reason: Allergic Symptoms Melatonin (Melatonin 3 Mg Tablet) 6 mg PO BEDTIME PRN PRN Reason: Insomnia Omeprazole (Omeprazole 40 Mg Capsule.Dr) 40 mg PO DAILY@0630 [facility] Sodium Chloride (0.9 % Sodium Chloride Flush 3 Ml Syringe) 3 ml IVFLUSH QSHIFT [place] Last Admin: 04/30/21 07:20 Dose: Not Given Documented by: Home Medications Medication Instructions Recorded Confirmed Last Taken Type cetirizine 10 mg tablet (Zyrtec) 10 mg PO DAILY PRN 04/30/21 04/30/21 Unknown History fluconazole 150 mg tablet 1 tab PO WE 04/30/21 04/30/21 04/26/21 History hydroxyzine HCl 25 mg tablet 25 mg PO Q6H PRN 04/30/21 04/30/21 Unknown History Physical Exam Vital Signs: Vital Signs: Last Vital Signs Temp 98.7 F 04/29/21 17:58 Pulse 89 04/30/21 05:53 Resp 18 04/30/21 05:53 BP 117/71 04/30/21 05:53 Pulse Ox 98 04/30/21 05:53 Body Mass Index 35.8 Const: General: cooperative, no acute distress, alert and awake HENMT: Head: Yes normocephalic and Yes atraumatic Resp: Effort & Inspection: normal respiratory effort Auscultation: clear to auscultation bilaterally GI: Other: Soft, mildly to moderately tender left lower quadrant without significant rebound no palpable masses, no organomegaly Rectal Exam - Female: deferred Skin: Other: Normal color, warm and dry General skin exam: no rashes or lesions noted Results Labs Result diagrams: 04/30/21 06:07 04/30/21 06:07 Labs: Abnormal lab results 04/29/21 04/29/21 04/30/21 Range/Units 18:45 18:45 06:07 WBC 17.5 H 12.9 H (4.8-10.8) X10*3/uL RBC 3.96 L (4.20-5.50) X10*6/uL Hgb 11.7 L 10.9 L (12.0-16.0) g/dl Hct 35.2 L 33.7 L (37.0-47.0) % MPV 8.8 L 8.9 L (9.4-12.3) fL Neut % (Auto) 76.8 H (45-73) % Lymph % (Auto) 13.3 L (20-40) % [place] # (Auto) 1.5 H (0.1-1.2) X10*3/uL Abs Immat Gran (auto) 0.06 H 0.04 H (0.00-0.03) X10*3/uL Absolute Neuts (auto) 13.5 H 8.5 H (2.0-8.3) x10*3/uL Anion Gap 11 L (12-20) BUN 7 L (9-16) mg/dL C-Reactive Protein (< or = 0.50) mg/dL 04/30/21 Range/Units 06:07 WBC (4.8-10.8) X10*3/uL RBC (4.20-5.50) X10*6/uL Hgb (12.0-16.0) g/dl Hct (37.0-47.0) % MPV (9.4-12.3) fL Neut % (Auto) (45-73) % Lymph % (Auto) (20-40) % [place] # (Auto) (0.1-1.2) X10*3/uL Abs Immat Gran (auto) (0.00-0.03) X10*3/uL Absolute Neuts (auto) (2.0-8.3) x10*3/uL Anion Gap (12-20) BUN 6 L (9-16) mg/dL C-Reactive Protein 7.26 H (< or = 0.50) mg/dL Short CBC 04/29/21 04/30/21 Range/Units 18:45 06:07 WBC 17.5 H 12.9 H (4.8-10.8) X10*3/uL Hgb 11.7 L 10.9 L (12.0-16.0) g/dl Hct 35.2 L 33.7 L (37.0-47.0) % Plt Count 388 360 (160-400) X10*3/uL BMP 04/29/21 04/30/21 18:45 06:07 Sodium 140 138 Potassium 4.0 3.6 Chloride 107 107 Carbon Dioxide 26 23 BUN 7 L 6 L Creatinine 0.75 0.77 Calcium 9.2 D 8.6 D Urine 04/29/21 04/29/21 Range/Units 18:27 18:27 Urine Color STRAW Urine Appearance CLEAR Urine pH 7.5 (5.0-8.0) Ur Specific [place] 1.010 (1.005-1.025) Urine Protein NEG (NEG-TRACE) MG/DL Urine Glucose (UA) NEG (NEG) MG/DL Urine Test NEGATIVE (NEGATIVE) All other labs normal. Imaging Abdomen CT scan report/results: report reviewed and image reviewed CT scan - pelvis: report reviewed and image reviewed Assessment and Plan (1) Diverticulitis of sigmoid colon: Status: Acute 21-year-old female with uncomplicated diverticulitis of the sigmoid colon. Her pain has improved significantly since yesterday. Starting on low residue diet. Continue antibiotics. Follow-up with security solutions engineer after discharge, recommend interval colonoscopy. Discussed with patient.. General surgery will follow along during the hospitalization. Procedures Date of Service Date of Service: 04/30/21
--- NOTE | 2021-04-30 13:31 | PC.NURSE ---
Pt was cleared by surgery and seen by GI and is ordered for a low residue diet. Pt is eating lunch and able to tolerate PO intake. Pt is pain free at this time.
[2021-04-30 14:07] VITALS: BP 111/73; PULSE 90; RESP 18; TEMP 36.8; O2SAT 99
--- NOTE | 2021-04-30 15:41 | MHC.CM.PN ---
Met with patient in regards to discharge planning. Patient lives with her fiance, ambulates independently and had no services prior to coming to the hospital. No services anticipated to be needed because patient is not homebound. PCP verified. Patient received 2 doses of Pfizer. Patient denies having a HCP. Information provided. Patient declining completing one at this time. Patient's fiance, Sachin, will transport patient home when medically stable. Continue to monitor for d/c needs.
[2021-04-30] MEDS: hydrOXYzine HCL 25 MG TABLET PO (19:49)
[2021-04-30 20:16] VITALS: BP 133/85; PULSE 109; RESP 16; TEMP 36.8; O2SAT 100
--- NOTE | 2021-04-30 20:16 | PC.NURSE ---
PT ATE DINNER, REPORTS IT UPSET HER STOMACHE. PT UPSET ABOUT FAMILY NEWS AND FEELING ANXIOUS. PT REQUESTED HER PRN HYDROXYZINE.
--- NOTE | 2021-04-30 23:30 | PC.NURSE ---
PT NEVER HAD CULTURES DRAWN, HAS HAD 2-3 DOSES OF ANTIBIOTICS. WILL CONTINUE TO ADMINISTER ANTIBIOTICS. PLANS FOR DISCHARGE IN MORNING FROM ER.
--- NOTE | 2021-05-01 07:35 | P.PNGS_ITS ---
Subjective Subjective Date of Service: 05/01/21 Interval history: Patient feels much improved with no abdominal pain currently. She was able to tolerate her dinner and breakfast nausea or vomiting. Physical Exam Vital Signs: Vital Signs: Last Vital Signs Temp 98.3 F 04/30/21 20:16 Pulse 109 H 04/30/21 20:16 Resp 16 04/30/21 20:16 BP 133/85 04/30/21 20:16 Pulse Ox 100 04/30/21 20:16 Body Mass Index 35.8 Resp: Effort & Inspection: normal respiratory effort, no audible wheezes, no cough and no respiratory distress GI: Inspection: Yes normal to inspection Palpation (GI): Soft to palpation, nontender, no guarding, not rigid and No Rebound tenderness present Skin: General skin exam: no rashes or lesions noted Extrem: General: Yes no clubbing, cyanosis or edema Objective Data Active Medications Acetaminophen (Acetaminophen 325 Mg Tablet) 650 mg PO Q6H PRN PRN Reason: Pain, Mild (Pain Scale 1-3) Last Admin: 04/30/21 09:21 Dose: 650 mg Documented by: ALEXIS Albuterol Sulfate (Albuterol Sulfate 90 Mcg 8 Gm Inhaler) 2 puff INHALE Q6H PRN PRN Reason: shortness of breath or wheezing Hydroxyzine HCl (Hydroxyzine Hcl 25 Mg Tablet) 25 mg PO Q6H PRN PRN Reason: Anxiety Last Admin: 04/30/21 19:49 Dose: 25 mg Documented by: NYDIA Ceftriaxone Sodium 1 gm/ (Sodium Chloride) 50 mls @ 100 mls/hr IV Q24H [facility] Last Infusion: 05/01/21 00:05 Dose: 0 mls/hr Documented by: NYDIA Metronidazole (Flagyl) 500 mg in 100 mls @ 100 mls/hr IV Q8H [facility] Last Infusion: 05/01/21 00:30 Dose: 0 mls/hr Documented by: NYDIA Ketorolac Tromethamine (Ketorolac Tromethamine 15 Mg/Ml Vial) 15 mg IVPUSH Q6H PRN PRN Reason: severe pain Loratadine (Loratadine 10 Mg Tablet) 10 mg PO DAILY PRN PRN Reason: Allergic Symptoms Melatonin (Melatonin 3 Mg Tablet) 6 mg PO BEDTIME PRN PRN Reason: Insomnia Omeprazole (Omeprazole 40 Mg [place].) 40 mg PO DAILY@0630 [facility] Sodium Chloride (0.9 % Sodium Chloride Flush 3 Ml Syringe) 3 ml IVFLUSH QSHIFT [facility] Last Admin: 05/01/21 06:24 Dose: Not Given Documented by: NYDIA Non-Admin Reason: IV Running Labs CBC & Chem 7: 04/30/21 06:07 04/30/21 06:07 Labs: Laboratory Results - last 24 hr 04/30/21 06:07 C-Reactive Protein 7.26 H Procedures Date of Service Date of Service: 05/01/21 Progress Note: A&P Assessment and plan (1) Diverticulitis of sigmoid colon: Status: Acute Assessment and Plan: 21-year-old female patient presenting with her 1st episode of sigmoid diverticulitis, treated with IV antibiotic times 24 hours. Patient is now much improved with decreased abdominal pain. On examination she is soft and nontender without rebound, guarding, or rigidity. As per Dr. Sullivan patient should follow-up with GI once discharged. Fall Risk Details Current Medications: Current Medications Acetaminophen (Acetaminophen 325 Mg Tablet) 650 mg PO Q6H PRN PRN Reason: Pain, Mild (Pain Scale 1-3) Last Admin: 04/30/21 09:21 Dose: 650 mg Documented by: Albuterol Sulfate (Albuterol Sulfate 90 Mcg 8 Gm Inhaler) 2 puff INHALE Q6H PRN PRN Reason: shortness of breath or wheezing Hydroxyzine HCl (Hydroxyzine Hcl 25 Mg Tablet) 25 mg PO Q6H PRN PRN Reason: Anxiety Last Admin: 04/30/21 19:49 Dose: 25 mg Documented by: Ceftriaxone Sodium 1 gm/ (Sodium Chloride) 50 mls @ 100 mls/hr IV Q24H [facility] Last Infusion: 05/01/21 00:05 Dose: Infused Documented by: Metronidazole (Flagyl) 500 mg in 100 mls @ 100 mls/hr IV Q8H [facility] Last Infusion: 05/01/21 00:30 Dose: Infused Documented by: Ketorolac Tromethamine (Ketorolac Tromethamine 15 Mg/Ml Vial) 15 mg IVPUSH Q6H PRN PRN Reason: severe pain Loratadine (Loratadine 10 Mg Tablet) 10 mg PO DAILY PRN PRN Reason: Allergic Symptoms Melatonin (Melatonin 3 Mg Tablet) 6 mg PO BEDTIME PRN PRN Reason: Insomnia Omeprazole (Omeprazole 40 Mg Capsule.Dr) 40 mg PO DAILY@0630 [facility] Sodium Chloride (0.9 % Sodium Chloride Flush 3 Ml Syringe) 3 ml IVFLUSH QSHIFT [facility] Last Admin: 05/01/21 06:24 Dose: Not Given Documented by: Time Spent With Patient Time: Total time spent is greater than 50% in coordination of care (as d ocumented) at patient's floor/unit and/or counseling patient: Time with patient: 15 - 24 minutes Quality Stroke Does the patient have a stroke diagnosis?: No VTE Prior VTE?: No VTE Risk Level:: Medical - low VTE Device Contraindication: N/A - Device Ordered VTE Drug Contraindication: Treatment Not Indicated
[2021-05-01] MEDS: metroNIDAZOLE/NS 500 MG/100 ML PIGGYBACK 100 MG IV (08:04)
--- NOTE | 2021-05-01 09:34 | PM.DS ---
DS: Providers Provider Date of Service: 05/01/21 Date of admission: 04/29/21 23:36 Primary care physician: Amber Green NP Consults: 04/29/21 23:36 Consult to General Surgery Routine Consulting Provider: Ann Sullivan Reason for consultation: Sigmoid diverticulitis 04/30/21 08:10 Consult to Gastroenterology Routine Consulting Provider: [facility] Reason for consultation: diverticulitis in a 21 yo; sees ACADEMIC COUNSELOR Tracy Lackey DS: Diagnosis Discharge Diagnosis (1) Diverticulitis of sigmoid colon: Status: Acute DS: Summary Hospital Course Hospital Course: from admission History and Physical by hospitalist Travis Cates, 04/29/21: 21-year-old female with a past medical history of GERD, PCOS, anxiety, panic attacks presented to the hospital with a chief complaint of abdominal pain. Patient reported that she had abdominal pain for 1 day started on the left lower quadrant, sharp in nature, nonradiating, no associated nausea or vomiting. Had mild diarrhea. Patient reports she initially felt constipated. Denies any fevers, cough. Denies any urinary symptoms. Review of all other systems is negative except mentioned above ER course: Per ER team patient noted of left lower quadrant abdominal tenderness; CT scan consistent with sigmoid diverticulitis-uncomplicated; given antibiotics. Admitted to the hospital for further management. She was admitted to the hospitalist service and treated with IV ceftriaxone and metronidazole. GI and Surgery were consulted. Her symptoms improved and her diet was advanced. She was discharged on 7 days of amoxicillin/clavulanate and should follow up with her primary care provider in 1 week. She should see her field sales engineer as previously scheduled and undergo colonoscopy in 8-12 weeks. Time Spent with Patient Time attestation: Total time spent providing and/or coordinating discharge services: Discharge coordination time: Greater than 30 minutes Quality: Stroke Does the patient have a stroke diagnosis?: No Physical Exam Vital Signs: Vital Signs: Last Vital Signs Temp 98.3 F 04/30/21 20:16 Pulse 109 H 04/30/21 20:16 Resp 16 04/30/21 20:16 BP 133/85 04/30/21 20:16 Pulse Ox 100 04/30/21 20:16 Body Mass Index 35.8 Gen: in no acute distress HEENT: sclera anicteric, moist mucus membranes Neck: supple Lungs: clear to auscultation bilaterally Heart: regular rate and rhythm, no murmurs Abd: soft, non-tender, non-distended, obese Ext: no edema Skin: warm/well-perfused Neuro: alert and oriented x3, no focal findings Psych: appropriate affect DS: Data Data Completed and Pending Completed studies during hospitalization [Text1]: Laboratory Results WBC 12.9 X10*3/uL (4.8-10.8) H 04/30/21 06:07 RBC 3.96 X10*6/uL (4.20-5.50) L 04/30/21 06:07 Hgb 10.9 g/dl (12.0-16.0) L 04/30/21 06:07 Hct 33.7 % (37.0-47.0) L 04/30/21 06:07 MCV 85.1 fL (80.0-98.0) 04/30/21 06:07 MCH 27.5 pg (27.0-33.0) 04/30/21 06:07 MCHC 32.3 g/dl (31.0-35.0) 04/30/21 06:07 RDW 14.6 % (11.0-16.0) 04/30/21 06:07 Plt Count 360 X10*3/uL (160-400) 04/30/21 06:07 MPV 8.9 fL (9.4-12.3) L 04/30/21 06:07 Immature Gran % (Auto) 0.3 % (0.0-0.4) 04/30/21 06:07 Neut % (Auto) 66.0 % (45-73) 04/30/21 06:07 Lymph % (Auto) 21.9 % (20-40) 04/30/21 06:07 [place] % (Auto) 9.6 % (2-11) 04/30/21 06:07 Eos % (Auto) 1.9 % (0-4) 04/30/21 06:07 Baso % (Auto) 0.3 % (0-2) 04/30/21 06:07 Lymph # (Auto) 2.8 X10*3/uL (1.2-4.9) 04/30/21 06:07 [place] # (Auto) 1.2 X10*3/uL (0.1-1.2) 04/30/21 06:07 Eos # (Auto) 0.2 X10*3/uL (0.0-0.4) 04/30/21 06:07 Baso # (Auto) 0.0 X10*3/uL (0.0-0.2) 04/30/21 06:07 Abs Immat Gran (auto) 0.04 X10*3/uL (0.00-0.03) H 04/30/21 06:07 Absolute Neuts (auto) 8.5 x10*3/uL (2.0-8.3) H 04/30/21 06:07 Absolute Nucleated RBC 0.000 X10*3/uL (0.0-0.012) 04/30/21 06:07 Nucleated RBC % (auto) 0.0 /100WBC (0.0-0.2) 04/30/21 06:07 Sodium 138 mmol/L (135-145) 04/30/21 06:07 Potassium 3.6 mmol/L (3.3-5.1) 04/30/21 06:07 Chloride 107 mmol/L (96-108) 04/30/21 06:07 Carbon Dioxide 23 mmol/L (22-29) 04/30/21 06:07 Anion Gap 12 (12-20) 04/30/21 06:07 BUN 6 mg/dL (9-16) L 04/30/21 06:07 Creatinine 0.77 mg/dL (0.5-1.4) 04/30/21 06:07 Estim Creat Clear Calc 117.6 04/30/21 06:07 Estimated GFR > 60 04/30/21 06:07 Random Glucose 98 mg/dL (60-115) 04/30/21 06:07 Lactic Acid 0.7 mmol/L (0.5-2.0) 04/29/21 21:02 Calcium 8.6 mg/dL (8.4-10.2) D 04/30/21 06:07 C-Reactive Protein 7.26 mg/dL (< or = 0.50) H 04/30/21 06:07 Urine Color STRAW 04/29/21 18:27 Urine Appearance CLEAR 04/29/21 18:27 Urine pH 7.5 (5.0-8.0) 04/29/21 18:27 Ur Specific [place] 1.010 (1.005-1.025) 04/29/21 18:27 Urine Protein NEG MG/DL (NEG-TRACE) 04/29/21 18:27 Urine Glucose (UA) NEG MG/DL (NEG) 04/29/21 18:27 Urine Ketones NEG MG/DL (NEG) 04/29/21 18:27 Urine Blood NEG (NEG) 04/29/21 18:27 Urine Nitrite NEG (NEG) 04/29/21 18:27 Ur Leukocyte Esterase NEG (NEG) 04/29/21 18:27 Urine Test NEGATIVE (NEGATIVE) 04/29/21 18:27 COVID-19 (TRES) Negative (Negative) 04/30/21 05:51 COVID-19 Clin Com See Note 04/30/21 05:51 Impressions Pelvic/Transvag US 04/29/21 18:35 IMPRESSION: There is a non peristalsing segment of bowel in the left lower quadrant that demonstrated rebound pain with transducer pressure. The loop did not appear to be overly distended, however this finding is of uncertain etiology. Consider follow-up with CT for additional assessment as clinically warranted. Abdomen/Pelvis CT 04/29/21 20:49 IMPRESSION: Sigmoid diverticulitis. No free air or fluid collection. Discharge Plan Discharge Patient Disposition: Home Health Service Discharge Diagnosis: acute sigmoid diverticulitis Referrals: Tomasa Delaney MD [Physician] - 1 Week Amber Green NP [Primary Care Provider] - 1 Week Discharge Medications: New amoxicillin-pot clavulanate 875-125 mg tablet 1 tab PO BID Qty: 14 RF: 0 Continued albuterol sulfate 90 mcg/actuation HFA aerosol inhaler 2 puff PO Q6H PRN (Reason: shortness of breath or wheezing) 30 Days Qty: 8.5 RF: 3 omeprazole 20 mg capsule,delayed release(DR/EC) 40 mg PO DAILY 30 Days Qty: 60 RF: 3 fluconazole 150 mg tablet 1 tab PO WE RF: 0 cetirizine [Zyrtec] 10 mg tablet 10 mg PO DAILY PRN (Reason: Allergic Symptoms) RF: 0 hydroxyzine HCl 25 mg tablet 25 mg PO Q6H PRN (Reason: Anxiety) RF: 0 dicyclomine 10 mg capsule 10 mg PO QID 30 Days Qty: 120 RF: 3 Discharge Orders: Discharge Order (Routine); Ordered 05/01/21 Ordered By: Gela Mallory Diet: advance to usual diet and other Activity on Discharge: As tolerated Stand Alone Forms: Patient Portal Discharge page Activity Restrictions/Additional Instructions: low-residue diet for a week, then high-fiber diet Care Plan Goals: cure of diverticulitis Health Concerns: diverticulitis Plan of Treatment: amoxicillin/clavulanate 875/125 mg twice daily for 7 days see your primary care provider in 1 week see your field sales engineer as scheduled previously; colonoscopy in 2-3 months Assessment: See Discharge Summary Patient Instructions: Diverticulitis (DC)
--- NOTE | 2021-05-01 10:03 | MHC.CM.PN ---
PT DISCHARGING HOME W/OUTPT FOLLOW-UP W/GI, PT TO ARRANGE TRANSPORT
== END 2021-05-01 12:39 | disposition home or self-care (01) | DRG 244 ==
LOC: HO.ED 23:30 → HO.EDOVER 23:40 → HO.S3 05-01 12:02 → HO.EDOVER 05-01 12:06
PROVIDERS: Admitting Provider Hospitalist; Emergency Provider Internal Medicine; PCP Hospitalist; Visit Provider Family Medicine
DX: K57.32 Diverticulitis of large intestine without perforation or abscess without bleeding (principal); E28.2 Polycystic ovarian syndrome; K21.9 Gastro-esophageal reflux disease without esophagitis; Z20.822 Contact with and (suspected) exposure to COVID-19; Z79.899 Other long term (current) drug therapy
CPT/HCPCS: 36415; 74177; 76830; 76856; 80048; 81003; 81025; 83605; 85025; 86140; 87635; 96361; 96374; 96375; 99285; J0696; J1885; J2543; Q0163; Q9967

== ENCOUNTER → 2021-05-09 14:04 | Outpatient (BNVA) | payer OTHER, SELFPAY | PROVIDERS: PCP Hospitalist; Referring Provider Hospitalist; Visit Provider Nurse Practitioner | DX: K57.32 Diverticulitis of large intestine without perforation or abscess without bleeding (principal); R10.9 Unspecified abdominal pain; R19.7 Diarrhea, unspecified; R14.0 Abdominal distension (gaseous); K21.9 Gastro-esophageal reflux disease without esophagitis; R53.83 Other fatigue; E66.9 Obesity, unspecified; Z68.34 Body mass index [BMI] 34.0-34.9, adult; Z80.3 Family history of malignant neoplasm of breast; Z15.01 Genetic susceptibility to malignant neoplasm of breast; Z88.8 Allergy status to other drugs, medicaments and biological substances; L23.1 Allergic contact dermatitis due to adhesives; L24.0 Irritant contact dermatitis due to detergents | CPT/HCPCS: 99212 ==

== ENCOUNTER → 2021-06-02 08:48 | Outpatient (BNVA) | payer OTHER, SELFPAY | PROVIDERS: PCP Hospitalist; Referring Provider Hospitalist; Visit Provider Nurse Practitioner | DX: K21.9 Gastro-esophageal reflux disease without esophagitis (principal); R10.9 Unspecified abdominal pain; R14.0 Abdominal distension (gaseous) | CPT/HCPCS: 99212 ==

== ENCOUNTER → 2021-06-29 15:48 | Outpatient (BNVA) | payer OTHER, SELFPAY | PROVIDERS: Visit Provider Obstetrics & Gynecology ==

== ENCOUNTER 2021-07-25 18:02 | Outpatient (REF) | payer OTHER, SELFPAY ==
[2021-07-25 18:56] LABS: Influenza A PCR NEGATIVE (Negative); Influenza B PCR NEGATIVE (Negative); Resp Syncy Virus RNA Qual PCR NEGATIVE (Negative); SARS COV2 PCR INHOUSE NEGATIVE (Negative)
== END 2021-07-25 18:03 | disposition home or self-care (01) ==
LOC: HO.LNP 18:02
PROVIDERS: Visit Provider Family Medicine
DX: Z20.822 Contact with and (suspected) exposure to COVID-19 (principal); J02.9 Acute pharyngitis, unspecified
CPT/HCPCS: 0241U

== ENCOUNTER → 2021-09-05 09:15 | Outpatient (BNVA) | payer OTHER, SELFPAY | PROVIDERS: PCP Hospitalist; Referring Provider Hospitalist; Visit Provider Nurse Practitioner | DX: K21.9 Gastro-esophageal reflux disease without esophagitis (principal); R14.0 Abdominal distension (gaseous); R10.9 Unspecified abdominal pain | CPT/HCPCS: 99212 ==

== ENCOUNTER 2021-11-09 10:23 | Outpatient (REF) | payer OTHER, SELFPAY ==
[2021-11-10 11:10] LABS: BV Int Neg Control Negative (Negative); BV Int Pos Control Positive (Positive)
== END 2021-11-09 10:24 | disposition home or self-care (01) ==
LOC: HO.LAB 10:23
PROVIDERS: PCP Hospitalist; Visit Provider Advanced Practice Midwife
DX: N76.0 Acute vaginitis (principal)
CPT/HCPCS: 87480; 87510; 87660; 99212

== ENCOUNTER 2021-11-28 | Outpatient (REF) | payer OTHER, SELFPAY ==
[2021-11-29 13:14] LABS: Influenza A PCR NEGATIVE (Negative); Influenza B PCR NEGATIVE (Negative); Resp Syncy Virus RNA Qual PCR NEGATIVE (Negative); SARS COV2 PCR INHOUSE NEGATIVE (Negative)
== END 2021-11-28 00:01 | disposition home or self-care (01) ==
LOC: HO.LNP
PROVIDERS: Visit Provider Family Medicine
DX: Z20.822 Contact with and (suspected) exposure to COVID-19 (principal); B34.9 Viral infection, unspecified
CPT/HCPCS: 0241U

== ENCOUNTER 2021-12-19 09:06 | Outpatient (REF) | payer OTHER, SELFPAY | END 2021-12-19 09:07 | disposition home or self-care (01) | LOC: HO.WFDLDS 09:06 | PROVIDERS: Visit Provider Hospitalist | DX: Z13.89 Encounter for screening for other disorder (principal) | CPT/HCPCS: 36415; 85027 ==

== ENCOUNTER 2022-02-15 08:35 | Outpatient (REF) | payer OTHER, SELFPAY ==
[2022-02-15 11:30] LABS: MANUAL DIFF FLAG NO
[2022-02-15 11:43] LABS: Basophils Percent Auto 0.1 % (0-2); Eosinophils Absolute Auto 0.2 X10*3/uL (0.0-0.4); Eosinophils Percent Auto 2.5 % (0-4); Hematocrit 37.5 % (37.0-47.0); Hemoglobin 12.3 g/dl (12.0-16.0); Imm Gran Abs Auto 0.02 X10*3/uL (0.00-0.03); Imm Gran Pct Auto 0.2 % (0.0-0.4); Lymphocytes Absolute Auto 1.7 X10*3/uL (1.2-4.9); Lymphocytes Percent Auto 18.7 % (20-40); Mean Corpuscular HGB Conc 32.8 g/dl (31.0-35.0); Mean Corpuscular Volume 85.2 fL (80.0-98.0); Mean Platelet Volume 9.9 fL (9.4-12.3); Monocytes Absolute Auto 0.7 X10*3/uL (0.1-1.2); Monocytes Percent Auto 7.8 % (2-11); Neutrophils Absolute Auto 6.4 x10*3/uL (2.0-8.3); Neutrophils Percent Auto 70.7 % (45-73); Platelet Count 413 X10*3/uL (160-400); Red Cell Distribution Width 14.1 % (11.0-16.0); White Blood Count 9.1 X10*3/uL (4.8-10.8)
== END 2022-02-15 08:36 | disposition home or self-care (01) ==
LOC: HO.WFDLDS 08:35
PROVIDERS: Visit Provider Hospitalist
DX: J02.0 Streptococcal pharyngitis (principal); J02.9 Acute pharyngitis, unspecified
CPT/HCPCS: 36415; 85025

== ENCOUNTER 2022-09-03 14:01 | Emergency (ER) | payer OTHER, SELFPAY ==
[2022-09-03 14:03] VITALS: BP 133/86; PULSE 93; RESP 18; TEMP 36.6; O2SAT 98; BMI 36.6
--- NOTE | 2022-09-03 14:04 | ED_ITS ---
HPI - Abdominal Pain General Chief Complaint: Abdominal Pain Stated Complaint: stomach pain Related Data Previous Rx's Medication Instructions Recorded pantoprazole 40 mg tablet,delayed 40 mg PO DAILY 30 days #30 tabs 06/02/21 release (Protonix) famotidine 40 mg tablet (Pepcid) 40 mg PO BEDTIME #30 tabs 09/05/21 fexofenadine 180 mg tablet 180 mg PO DAILY 3 months #90 tabs 12/19/21 (Andreea Allergy) albuterol sulfate 90 mcg/actuation 2 puff PO Q6H PRN shortness of 05/03/22 aerosol inhaler breath or wheezing 30 days #8.5 grams albuterol sulfate 90 mcg/actuation 2 puff inhalation Q4-6H PRN 05/03/22 aerosol inhaler (Ventolin HFA) shortness of breath or wheezing 1 month #8.5 grams citalopram 10 mg tablet 20 mg PO DAILY 3 months #180 tabs 05/03/22 amoxicillin 875 mg-potassium 1 tab PO BID 7 days #14 tabs 07/11/22 clavulanate 125 mg tablet fluconazole 150 mg tablet 150 mg PO DAILY 2 days #2 tabs 07/11/22 (Diflucan) Allergies Allergy/AdvReac Type Severity Reaction Status Date / Time adhesive tape [ADHESIVE TAPE] Allergy Intermediate RASH Verified 07/11/22 08:54 detergents Allergy Severe Hives, Uncoded 07/11/22 08:54 face swelling Medical tape Allergy Intermediate hives Uncoded 07/11/22 08:54 PMFSH Past Medical History Medical History (Updated 09/03/22 @ 18:27 by EMILY Esposito) Asthma, mild intermittent, well-controlled Cervical cancer screening Chronic GERD Etonogestrel implant for control Family history of breast cancer gene mutation in first degree relative Obesity (BMI 35.0-39.9 without comorbidity) Otitis media PCOS (polycystic ovarian syndrome) Pharyngitis Serous otitis media Sinus infection Sore throat Viral illness Yeast infection Surgical History History of tonsillectomy [place] teeth extracted Family History Family History Mother Breast cancer Diverticulitis Father No problems noted. 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 22-year-old female history of PCOS, diverticulitis presenting to the emergency department for evaluation of intermittent stabbing right lower quadrant pain x3 days worsening. With associated anorexia, nausea, malaise. Patient still has her appendix and gallbladder. Denies fevers, chills, chest pain, shortness of breath, headache, vision changes, dizziness and weakness. Physical exam right lower quadrant tenderness. Vital signs stable. Stable for waiting room while she is waiting to go into the department. Plan labs, imaging. Reevaluation(s) Reevaluation #1: I was told by charge nurse that patient was called back to the department no answer x2. Patient eloped prior to labs resulting. Time: 18:17 Medical Decision Making Lab Data 09/03/22 14:17 09/03/22 14:17 Labs: Lab Results 09/03/22 09/03/22 09/03/22 Range/Units 14:17 14:17 14:17 WBC 14.2 H (4.8-10.8) X10*3/uL RBC 4.40 (4.20-5.50) X10*6/uL Hgb 11.9 L (12.0-16.0) g/dl Hct 37.3 (37.0-47.0) % MCV 84.8 (80.0-98.0) fL MCH 27.0 (27.0-33.0) pg MCHC 31.9 (31.0-35.0) g/dl RDW 14.2 (11.0-16.0) % Plt Count 388 (160-400) X10*3/uL MPV 9.1 L (9.4-12.3) fL Immature Gran % (Auto) 0.4 (0.0-0.4) % Neut % (Auto) 74.6 H (45-73) % Lymph % (Auto) 18.7 L (20-40) % [place] % (Auto) 4.2 (2-11) % Eos % (Auto) 1.7 (0-4) % Baso % (Auto) 0.4 (0-2) % Lymph # (Auto) 2.7 (1.2-4.9) X10*3/uL [place] # (Auto) 0.6 (0.1-1.2) X10*3/uL Eos # (Auto) 0.2 (0.0-0.4) X10*3/uL Baso # (Auto) 0.1 (0.0-0.2) X10*3/uL Abs Immat Gran (auto) 0.05 H (0.00-0.03) X10*3/uL Absolute Neuts (auto) 10.6 H (2.0-8.3) x10*3/uL Absolute Nucleated RBC 0.000 (0.0-0.012) X10*3/uL Nucleated RBC % (auto) 0.0 (0.0-0.2) /100WBC Sodium 137 (135-145) mmol/L Potassium 4.0 (3.3-5.1) mmol/L Chloride 102 (96-108) mmol/L Carbon Dioxide 26 (22-29) mmol/L Anion Gap 13 (12-20) BUN 15 (9-16) mg/dL Creatinine 0.75 (0.5-1.4) mg/dL Estim Creat Clear Calc 121.1 Estimated GFR > 60 Random Glucose 111 (60-115) mg/dL Calcium 9.3 D (8.4-10.2) mg/dL Magnesium 2.0 (1.6-2.6) mg/dL Total Bilirubin 0.3 (0.0-1.0) mg/dL AST 15 (5-31) U/L ALT 12 (0-31) U/L Alkaline Phosphatase 121 H (39-117) U/L Total Protein 7.2 (6.5-8.0) g/dL Albumin 4.1 (3.5-5.0) g/dL Lipase 17 (8-78) U/L Urine Color Urine Appearance Urine pH (5.0-9.0) Ur Specific [place] (1.005-1.025) Urine Protein (Neg-Trace) mg/dL Urine Glucose (UA) (Negative) mg/dL Urine Ketones (Negative) mg/dL Urine Blood (Negative) Urine Nitrite (Negative) Ur Leukocyte Esterase (Negative) Urine Test (NEGATIVE) COVID-19 (TRES) Negative (Negative) COVID-19 Clin Com See Note 09/03/22 09/03/22 Range/Units 14:17 14:17 WBC (4.8-10.8) X10*3/uL RBC (4.20-5.50) X10*6/uL Hgb (12.0-16.0) g/dl Hct (37.0-47.0) % MCV (80.0-98.0) fL MCH (27.0-33.0) pg MCHC (31.0-35.0) g/dl RDW (11.0-16.0) % Plt Count (160-400) X10*3/uL MPV (9.4-12.3) fL Immature Gran % (Auto) (0.0-0.4) % Neut % (Auto) (45-73) % Lymph % (Auto) (20-40) % [place] % (Auto) (2-11) % Eos % (Auto) (0-4) % Baso % (Auto) (0-2) % Lymph # (Auto) (1.2-4.9) X10*3/uL [place] # (Auto) (0.1-1.2) X10*3/uL Eos # (Auto) (0.0-0.4) X10*3/uL Baso # (Auto) (0.0-0.2) X10*3/uL Abs Immat Gran (auto) (0.00-0.03) X10*3/uL Absolute Neuts (auto) (2.0-8.3) x10*3/uL Absolute Nucleated RBC (0.0-0.012) X10*3/uL Nucleated RBC % (auto) (0.0-0.2) /100WBC Sodium (135-145) mmol/L Potassium (3.3-5.1) mmol/L Chloride (96-108) mmol/L Carbon Dioxide (22-29) mmol/L Anion Gap (12-20) BUN (9-16) mg/dL Creatinine (0.5-1.4) mg/dL Estim Creat Clear Calc Estimated GFR Random Glucose (60-115) mg/dL Calcium (8.4-10.2) mg/dL Magnesium (1.6-2.6) mg/dL Total Bilirubin (0.0-1.0) mg/dL AST (5-31) U/L ALT (0-31) U/L Alkaline Phosphatase (39-117) U/L Total Protein (6.5-8.0) g/dL Albumin (3.5-5.0) g/dL Lipase (8-78) U/L Urine Color Yellow Urine Appearance Clear Urine pH 6.5 (5.0-9.0) Ur Specific [place] 1.015 (1.005-1.025) Urine Protein Negative (Neg-Trace) mg/dL Urine Glucose (UA) Negative (Negative) mg/dL Urine Ketones Negative (Negative) mg/dL Urine Blood Negative (Negative) Urine Nitrite Negative (Negative) Ur Leukocyte Esterase Negative (Negative) Urine Test NEGATIVE (NEGATIVE) COVID-19 (TRES) (Negative) COVID-19 Clin Com Discharge Plan Discharge Clinical Impression: Abdominal pain Patient Disposition: Elopement Prescriptions: No Action albuterol sulfate 90 mcg/actuation HFA aerosol inhaler 2 puff PO Q6H PRN (Reason: shortness of breath or wheezing) 30 Days Qty: 8.5 8RF citalopram 10 mg tablet 20 mg PO DAILY 90 Days Qty: 180 2RF albuterol sulfate [Ventolin HFA] 90 mcg/actuation HFA aerosol inhaler 2 puff inhalation Q4-6H PRN (Reason: shortness of breath or wheezing) 30 Days Qty: 8.5 4RF amoxicillin-pot clavulanate 875-125 mg tablet 1 tab PO BID 7 Days Qty: 14 0RF fluconazole [Diflucan] 150 mg tablet 150 mg PO DAILY 2 Days Qty: 2 0RF fexofenadine [Andreea Allergy] 180 mg tablet 180 mg PO DAILY 90 Days Qty: 90 2RF famotidine [Pepcid] 40 mg tablet 40 mg PO BEDTIME Qty: 30 3RF pantoprazole [Protonix] 40 mg tablet,delayed release (DR/EC) 40 mg PO DAILY 30 Days Qty: 30 6RF Discharge Date/Time: 09/03/22 18:12
[2022-09-03 14:26] LABS: MANUAL DIFF FLAG NO
[2022-09-03 14:28] LABS: Basophils Absolute Auto 0.1 X10*3/uL (0.0-0.2); Basophils Percent Auto 0.4 % (0-2); Eosinophils Absolute Auto 0.2 X10*3/uL (0.0-0.4); Eosinophils Percent Auto 1.7 % (0-4); Hematocrit 37.3 % (37.0-47.0); Hemoglobin 11.9 g/dl (12.0-16.0); Imm Gran Abs Auto 0.05 X10*3/uL (0.00-0.03); Imm Gran Pct Auto 0.4 % (0.0-0.4); Lymphocytes Absolute Auto 2.7 X10*3/uL (1.2-4.9); Lymphocytes Percent Auto 18.7 % (20-40); Mean Corpuscular HGB Conc 31.9 g/dl (31.0-35.0); Mean Corpuscular Volume 84.8 fL (80.0-98.0); Mean Platelet Volume 9.1 fL (9.4-12.3); Monocytes Absolute Auto 0.6 X10*3/uL (0.1-1.2); Monocytes Percent Auto 4.2 % (2-11); Neutrophils Absolute Auto 10.6 x10*3/uL (2.0-8.3); Neutrophils Percent Auto 74.6 % (45-73); Platelet Count 388 X10*3/uL (160-400); Red Cell Distribution Width 14.2 % (11.0-16.0); White Blood Count 14.2 X10*3/uL (4.8-10.8)
[2022-09-03 14:31] LABS: Appearance Urine Clear; Color Urine Yellow; Glucose Urine UA Negative (Negative); Leukocyte Esterase Urine Negative (Negative); Nitrite Urine Negative (Negative); PH 6.5 (5.0-9.0); Specific Gravity - Urine 1.015 (1.005-1.025); Urine Blood Negative (Negative); Urine Ketones Negative (Negative); Urine Protein Negative (Neg-Trace)
[2022-09-03 14:39] LABS: UPreg QC Valid YES; Urine Pregnancy NEGATIVE (NEGATIVE)
[2022-09-03 14:43] LABS: IDNOW Serial# BCCEAD1C
[2022-09-03 14:44] LABS: Alanine Aminotransferase 12 U/L (0-31); Albumin Level 4.1 g/dL (3.5-5.0); Alkaline Phosphatase 121 U/L (39-117); Anion Gap 13 (12-20); Aspartate Amino Transferase 15 U/L (5-31); Bilirubin Total 0.3 mg/dL (0.0-1.0); Blood Urea Nitrogen 15 mg/dL (9-16); COVID-19 Test Negative (Negative); Calcium 9.3 mg/dL (8.4-10.2); Carbon Dioxide 26 mmol/L (22-29); Chloride 102 mmol/L (96-108); Creatinine Clr Calc Pharmacy 121.1; Estimated Glomerular Filt Rate > 60; Glucose Random 111 mg/dL (60-115); Lipase 17 U/L (8-78); Sodium 137 mmol/L (135-145); Total Protein 7.2 g/dL (6.5-8.0)
--- NOTE | 2022-09-03 18:23 | PC.NURSE ---
Pt eloped prior to labs resulting, triage provider Shanice DIAZ aware.
== END 2022-09-03 18:12 | disposition left against medical advice (07) ==
PROVIDERS: Emergency Provider Physician Assistant; PCP Hospitalist
DX: R10.31 Right lower quadrant pain (principal); R11.0 Nausea; E28.2 Polycystic ovarian syndrome; Z20.822 Contact with and (suspected) exposure to COVID-19
CPT/HCPCS: 80053; 81003; 81025; 83690; 83735; 85025; 87635; 99282; 99283

== ENCOUNTER 2022-09-06 15:55 | Outpatient (REF) | payer OTHER, SELFPAY ==
--- NOTE | ~2022-09-06 | XR_ITS ---
EXAMINATION: XR CHEST CLINICAL INFORMATION: Elevated white blood cell count. COMPARISON: 01/08/2021 chest radiographs. TECHNIQUE: 2 views of the chest were obtained. FINDINGS: No significant abnormality is noted involving the heart, lungs, mediastinum, bony thorax or soft tissues. XR/XR chest 2V IMPRESSION: No acute cardiopulmonary process.
[2022-09-06 16:06] LABS: MANUAL DIFF FLAG NO
[2022-09-06 17:49] LABS: Basophils Absolute Auto 0.1 X10*3/uL (0.0-0.2); Basophils Percent Auto 0.4 % (0-2); Eosinophils Absolute Auto 0.3 X10*3/uL (0.0-0.4); Hematocrit 37.1 % (37.0-47.0); Imm Gran Abs Auto 0.06 X10*3/uL (0.00-0.03); Imm Gran Pct Auto 0.4 % (0.0-0.4); Lymphocytes Absolute Auto 2.7 X10*3/uL (1.2-4.9); Lymphocytes Percent Auto 18.2 % (20-40); Mean Corpuscular HGB Conc 32.3 g/dl (31.0-35.0); Mean Corpuscular Hemoglobin 27.5 pg (27.0-33.0); Mean Corpuscular Volume 84.9 fL (80.0-98.0); Mean Platelet Volume 9.3 fL (9.4-12.3); Monocytes Absolute Auto 1.2 X10*3/uL (0.1-1.2); Monocytes Percent Auto 7.9 % (2-11); Neutrophils Absolute Auto 10.6 x10*3/uL (2.0-8.3); Neutrophils Percent Auto 71.1 % (45-73); Platelet Count 412 X10*3/uL (160-400); Red Blood Count 4.37 X10*6/uL (4.20-5.50); Red Cell Distribution Width 14.4 % (11.0-16.0); White Blood Count 14.9 X10*3/uL (4.8-10.8)
[2022-09-06 18:05] LABS: Alanine Aminotransferase 11 U/L (0-31); Albumin Level 3.9 g/dL (3.5-5.0); Alkaline Phosphatase 112 U/L (39-117); Anion Gap 13 (12-20); Aspartate Amino Transferase 13 U/L (5-31); Bilirubin Total 0.2 mg/dL (0.0-1.0); Blood Urea Nitrogen 15 mg/dL (9-16); Calcium 8.9 mg/dL (8.4-10.2); Carbon Dioxide 24 mmol/L (22-29); Chloride 105 mmol/L (96-108); Estimated Glomerular Filt Rate > 60; Glucose Random 73 mg/dL (60-115); Potassium 4.1 mmol/L (3.3-5.1); Sodium 138 mmol/L (135-145); Total Protein 6.9 g/dL (6.5-8.0)
== END 2022-09-06 15:56 | disposition home or self-care (01) ==
LOC: HO.LAB 15:55
PROVIDERS: Nurse Practitioner; PCP Hospitalist; Visit Provider Hospitalist
DX: R10.9 Unspecified abdominal pain (principal); D72.829 Elevated white blood cell count, unspecified; R05.8 Other specified cough
CPT/HCPCS: 36415; 71046; 80053; 85025; 85027

== ENCOUNTER 2022-09-07 12:01 | Emergency (ER) | payer OTHER, SELFPAY ==
--- NOTE | ~2022-09-07 | US_ITS ---
EXAMINATION: US PELVIS CLINICAL INFORMATION: Suprapubic pain and nausea and vomiting. COMPARISON: None available. TECHNIQUE: Ultrasound of the pelvis is performed using both transabdominal and transvaginal transducers along with Doppler. Transvaginal imaging is performed due to inadequate visualization transabdominally. FINDINGS: Uterus: The uterus is anteverted and measures 7.7 x 3.5 x 4.7 cm. No significant myometrial abnormality. The double wall endometrial thickness of 1.0 cm without focal abnormality. The cervix is closed. Minimal free fluid. Adnexa: Both ovaries are visualized. There is normal color flow to the adnexa. There is no ovarian torsion. There is no pelvic ascites or fluid collection. Right ovary measures 3.6 x 3.0 x 3.0 cm. Doppler showed no abnormal vascular flow. Left ovary measures 3.2 x 1.8 x 2.6 cm. Showed no abnormal vascular flow. Urinary bladder: Moderately distended without focal abnormality. US/US pelvic and transvaginal IMPRESSION: Unremarkable pelvic ultrasound.
--- NOTE | ~2022-09-07 | US_ITS ---
EXAMINATION: US PELVIS CLINICAL INFORMATION: Suprapubic pain and nausea and vomiting. COMPARISON: None available. TECHNIQUE: Ultrasound of the pelvis is performed using both transabdominal and transvaginal transducers along with Doppler. Transvaginal imaging is performed due to inadequate visualization transabdominally. FINDINGS: Uterus: The uterus is anteverted and measures 7.7 x 3.5 x 4.7 cm. No significant myometrial abnormality. The double wall endometrial thickness of 1.0 cm without focal abnormality. The cervix is closed. Minimal free fluid. Adnexa: Both ovaries are visualized. There is normal color flow to the adnexa. There is no ovarian torsion. There is no pelvic ascites or fluid collection. Right ovary measures 3.6 x 3.0 x 3.0 cm. Doppler showed no abnormal vascular flow. Left ovary measures 3.2 x 1.8 x 2.6 cm. Showed no abnormal vascular flow. Urinary bladder: Moderately distended without focal abnormality. US/US pelvic ovarian doppler IMPRESSION: Unremarkable pelvic ultrasound.
--- NOTE | ~2022-09-07 | CT_ITS ---
EXAMINATION: CT ABDOMEN AND PELVIS WITH CONTRAST CLINICAL INFORMATION: COVID 3 weeks ago, pulmonary embolism in the past abdominal pain. COMPARISON: 04/29/2021. TECHNIQUE: Multidetector volumetric images were obtained from the superior aspect of the liver through the pubic symphysis following administration 85 mL of Omnipaque 350 intravenous contrast. Sagittal and coronal reformatted images were obtained on the technologist's workstation. Oral contrast: No This CT examination was performed using dose optimization techniques as appropriate, variously including the following: *Automated exposure control *Adjustment of mA and/or kV according to patient size (this includes techniques or standardized protocols for targeted exams where dose is matched to indication/reason for exam; i.e. extremities or head) *Use of iterative reconstruction technique DLP: 761 mGy-cm FINDINGS: LUNG BASES: The visualized lung bases are unremarkable. LIVER, GALLBLADDER, AND BILIARY TREE: Unremarkable. PANCREAS: Unremarkable. SPLEEN: Unremarkable. ADRENAL GLANDS: Unremarkable. KIDNEYS AND URETERS: Right kidney small vertebral low-attenuation focus measuring 0.5 cm (image 55, series 7). No nephrolithiasis or hydronephrosis. BLADDER: Unremarkable. GASTROINTESTINAL TRACT: The stomach and small bowel and appendix are unremarkable. The colon shows mild diverticulosis in the distal descending and sigmoid colon without surrounding abnormality. The rectum is unremarkable. ABDOMINAL WALL: No significant hernia is appreciated. LYMPH NODES: No lymphadenopathy. VASCULAR: Unremarkable. PELVIC VISCERA: Unremarkable. OSSEOUS STRUCTURES: Unremarkable. CT/CT abdomen pelvis w IV con IMPRESSION: 1. No acute intra-abdominal/pelvic abnormality to explain the patient's pain. 2. Mild distal descending/sigmoid diverticulosis without evidence for acute diverticulitis.
[2022-09-07 12:05] VITALS: BP 136/86; PULSE 102; RESP 16; TEMP 37.1; O2SAT 99; BMI 36.1
--- NOTE | 2022-09-07 12:05 | ED_ITS ---
HPI - Abdominal Pain General Chief Complaint: Abdominal Pain <EMILY Rebolledo - Last Filed: 09/07/22 12:21> Stated Complaint: possible ovarian cyst <EMILY Rebolledo - Last Filed: 09/07/22 12:21> Time Seen by Provider: 09/07/22 13:31 <EMILY Rebolledo - Last Filed: 09/07/22 12:21> Source: patient and old records reviewed <EMILY Mena - Last Filed: 09/07/22 16:58> Mode of arrival: ambulatory <EMILY Mena - Last Filed: 09/07/22 16:58> Limitations: no limitations <EMILY Mena Last Filed: 09/07/22 16:58> History of Present Illness HPI narrative: 22-year-old female with history of anemia, depression, anxiety, asthma, , GERD, diverticulitis, seasonal allergies who presents to the ER for evaluation of 6 days of right-sided lower abdominal pain and periumbilical pain. She states that the pain comes in waves, feels stabbing in nature. It is worse with movement. She denies any associated nausea, vomiting, diarrhea. She feels the pain may be in the area where her ovary is. She denies any chance of . She denies any urinary symptoms. She denies any concern for STI, no vaginal discharge. She is sexually active with her same partner for the last few years. <EMILY Mena - Last Filed: 09/07/22 16:58> MD elicited complaint: abdominal pain <EMILY Mena Last Filed: 09/07/22 16:58> Pertinent past history: none <EMILY Mena Last Filed: 09/07/22 16:58> Onset (ago): day(s) (6) <EMILY Mena Last Filed: 09/07/22 16:58> Pain Consistency: intermittent <EMILY Mena Last Filed: 09/07/22 16:58> Location: RLQ <EMILY Mena Last Filed: 09/07/22 16:58> Severity: moderate <EMILY Mena Last Filed: 09/07/22 16:58> Quality: stabbing <EMILY Mena - Last Filed: 09/07/22 16:58> Migration to: periumbilical <EMILY Mena - Last Filed: 09/07/22 16:58> Exacerbating factors: movement <EMILY Mena - Last Filed: 09/07/22 16:58> Relieving factors: nothing <EMILY Mena - Last Filed: 09/07/22 16:58> Associated symptoms: denies other symptoms <EMILY Mena - Last Filed: 09/07/22 16:58> Related Data Home Medications: Home Medications Medication Instructions Recorded Confirmed omeprazole 20 mg capsule,delayed 20 mg PO BID 09/06/22 09/06/22 release Previous Rx's Medication Instructions Recorded fexofenadine 180 mg tablet 180 mg PO DAILY 3 months #90 tabs 12/19/21 (Andreea Allergy) albuterol sulfate 90 mcg/actuation 2 puff PO Q6H PRN shortness of 05/03/22 aerosol inhaler breath or wheezing 30 days #8.5 grams citalopram 10 mg tablet 20 mg PO DAILY 3 months #180 tabs 05/03/22 <EMILY Rebolledo - Last Filed: 09/07/22 12:21> Allergies/Adverse Reactions: Allergies Allergy/AdvReac Type Severity Reaction Status Date / Time adhesive tape [ADHESIVE TAPE] Allergy Intermediate RASH Verified 09/06/22 14:57 detergents Allergy Severe Hives, Uncoded 07/11/22 08:54 face swelling Medical tape Allergy Intermediate hives Uncoded 07/11/22 08:54 <EMILY Rebolledo - Last Filed: 09/07/22 12:21> Review of Systems Review of Systems Yes all other systems are reviewed and are negative <EMILY Mena - Last Filed: 09/07/22 16:58> [facility] Past Medical History Medical History: Medical History Asthma, mild intermittent, well-controlled Cervical cancer screening Chronic GERD Etonogestrel implant for control Family history of breast cancer gene mutation in first degree relative Obesity (BMI 35.0-39.9 without comorbidity) Otitis media PCOS (polycystic ovarian syndrome) Pharyngitis Serous otitis media Sinus infection Sore throat Viral illness Yeast infection <EMILY Rebolledo - Last Filed: 09/07/22 12:21> Surgical History: Surgical History History of tonsillectomy [place] teeth extracted <EMILY Rebolledo - Last Filed: 09/07/22 12:21> Family History Family History: Family History Mother Breast cancer Diverticulitis Father No problems noted. 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 Current occupational exposures/hazards: No Sexual orientation: Straight/Heterosexual Gender identity: Female Cognitive needs: No Hearing needs: No Vision needs: Yes <EMILY Rebolledo - Last Filed: 09/07/22 12:21> Physical Exam ED Vital Signs: Vital Signs - 24 hr 09/07/22 12:05 09/07/22 14:45 Temperature 98.7 F 97.0 F Pulse Rate 102 H 91 Respiratory Rate 16 16 Blood Pressure 136/86 119/75 Pulse Oximetry 99 100 Oxygen Delivery Method Room Air Room Air BMI result Body Mass Index 36.1 <EMILY Rebolledo - Last Filed: 09/07/22 12:21> Vital Signs - 24 hr 09/07/22 12:05 09/07/22 14:45 Temperature 98.7 F 97.0 F Pulse Rate 102 H 91 Respiratory Rate 16 16 Blood Pressure 136/86 119/75 Pulse Oximetry 99 100 Oxygen Delivery Method Room Air Room Air BMI result Body Mass Index 36.1 <EMILY Mena - Last Filed: 09/07/22 16:58> Appearance: Alert. Oriented X3. No acute distress. Eyes: Pupils equal, round and reactive to light. ENT: Pharynx normal. Neck: Normal inspection. Neck supple. CVS: Normal heart rate and rhythm. Pulses normal. Respiratory: No respiratory distress. Breath sounds normal. Abdomen: Soft with some mild tenderness to deep palpation of the periumbilical area in the right lower portion, negative tenderness at McBurney's point, negative Higgins sign. Normoactive bowel sounds. Skin: Skin warm and dry. Normal skin color. Normal skin turgor. No rashes. Extremities: No lower extremity edema. Neuro: Oriented X 3. No motor deficit. No sensory deficit. <EMILY Mena - Last Filed: 09/07/22 16:58> Course Course Course Narrative: RME--22yo F w/PMHx PCOS, GERD, c/o intermittent RLQ/suprapubic pain x6 days with intermittent nausea. Pain described as sharp worse with sitting/standing. LMP 3 weeks ago. Was seen in ED on 09/03 however eloped after labs, and also saw PCP yesterday, had noted leukocytosis 14.2. Denies fever, urinary sx, vomiting or diarrhea Labs, UA, Preg, US ordered ordered <EMILY Rebolledo - Last Filed: 09/07/22 12:21> Reevaluation(s) Reevaluation #1: Ultrasound is negative so a CT scan was performed. This is also unremarkable. Patient was informed of the results of her negative workup today. She is comfortable. She is stable for discharge home with outpatient follow- up. She was given return precautions. <EMILY Mena - Last Filed: 09/07/22 16:58> Medical Decision Making Medical Decision Making MDM Narrative: 22-year-old female presents to the ER for evaluation of periumbilical and right lower quadrant abdominal pain for the last 6 days. Comes and goes, stabbing in nature. No urinary or symptoms. Abdomen is soft and only tender to deep palpation mostly in the periumbilical area. She has normal active bowel signs, benign abdomen. Labs are unremarkable. Urinalysis unremarkable. Pelvic ultrasound is unremarkable. CT scan was performed that is not show any acute abnormalities. At this time patient is stable for discharge home. <EMILY Mena - Last Filed: 03/24/23 16:58> Differential Diagnosis Differential Diagnoses: The differential diagnosis associated with the presentation includes <EMILY Mena - Last Filed: 09/07/22 16:58> Acute appendicitis, ovarian cyst, ovarian torsion, PID, UTI, pyelonephritis, muscular pain <EMILY Mena - Last Filed: 09/07/22 16:58> Lab Data MDM Lab Attestation statement: I reviewed the patient's lab results. <EMILY Mena - Last Filed: 09/07/22 16:58> Result Diagrams: 09/07/22 12:20 09/07/22 12:20 <EMILY Rebolledo - Last Filed: 09/07/22 12:21> Labs: Lab Results 09/07/22 09/07/22 09/07/22 Range/Units 12:20 12:20 12:20 WBC 11.7 H (4.8-10.8) X10*3/uL RBC 4.50 (4.20-5.50) X10*6/uL Hgb 12.1 (12.0-16.0) g/dl Hct 37.8 (37.0-47.0) % MCV 84.0 (80.0-98.0) fL MCH 26.9 L (27.0-33.0) pg MCHC 32.0 (31.0-35.0) g/dl RDW 14.4 (11.0-16.0) % Plt Count 385 (160-400) X10*3/uL MPV 9.0 L (9.4-12.3) fL Immature Gran % (Auto) 0.3 (0.0-0.4) % Neut % (Auto) 75.4 H (45-73) % Lymph % (Auto) 15.9 L (20-40) % [place] % (Auto) 6.7 (2-11) % Eos % (Auto) 1.3 (0-4) % Baso % (Auto) 0.4 (0-2) % Lymph # (Auto) 1.9 (1.2-4.9) X10*3/uL [place] # (Auto) 0.8 (0.1-1.2) X10*3/uL Eos # (Auto) 0.2 (0.0-0.4) X10*3/uL Baso # (Auto) 0.1 (0.0-0.2) X10*3/uL Abs Immat Gran (auto) 0.04 H (0.00-0.03) X10*3/uL Absolute Neuts (auto) 8.8 H (2.0-8.3) x10*3/uL Absolute Nucleated RBC 0.000 (0.0-0.012) X10*3/uL Nucleated RBC % (auto) 0.0 (0.0-0.2) /100WBC Sodium 140 (135-145) mmol/L Potassium 4.6 (3.3-5.1) mmol/L Chloride 108 (96-108) mmol/L Carbon Dioxide 25 (22-29) mmol/L Anion Gap 12 (12-20) BUN 13 (9-16) mg/dL Creatinine 0.70 (0.5-1.4) mg/dL Estim Creat Clear Calc 133.9 Estimated GFR > 60 Random Glucose 108 (60-115) mg/dL Calcium 9.1 (8.4-10.2) mg/dL Magnesium 2.0 (1.6-2.6) mg/dL Total Bilirubin 0.3 (0.0-1.0) mg/dL Direct Bilirubin < 0.2 (0.0-0.5) mg/dL AST 13 (5-31) U/L ALT 10 (0-31) U/L Alkaline Phosphatase 114 (39-117) U/L Total Protein 6.9 (6.5-8.0) g/dL Albumin 3.9 (3.5-5.0) g/dL Lipase 16 (8-78) U/L Urine Color Yellow Urine Appearance Cloudy Urine pH 7.0 (5.0-9.0) Ur Specific [place] <= 1.005 (1.005-1.025) Urine Protein Negative (Neg-Trace) mg/dL Urine Glucose (UA) Negative (Negative) mg/dL Urine Ketones Negative (Negative) mg/dL Urine Blood Negative (Negative) Urine Nitrite Negative (Negative) Ur Leukocyte Esterase Negative (Negative) Urine Test (NEGATIVE) 09/07/22 Range/Units 12:20 WBC (4.8-10.8) X10*3/uL RBC (4.20-5.50) X10*6/uL Hgb (12.0-16.0) g/dl Hct (37.0-47.0) % MCV (80.0-98.0) fL MCH (27.0-33.0) pg MCHC (31.0-35.0) g/dl RDW (11.0-16.0) % Plt Count (160-400) X10*3/uL MPV (9.4-12.3) fL Immature Gran % (Auto) (0.0-0.4) % Neut % (Auto) (45-73) % Lymph % (Auto) (20-40) % [place] % (Auto) (2-11) % Eos % (Auto) (0-4) % Baso % (Auto) (0-2) % Lymph # (Auto) (1.2-4.9) X10*3/uL [place] # (Auto) (0.1-1.2) X10*3/uL Eos # (Auto) (0.0-0.4) X10*3/uL Baso # (Auto) (0.0-0.2) X10*3/uL Abs Immat Gran (auto) (0.00-0.03) X10*3/uL Absolute Neuts (auto) (2.0-8.3) x10*3/uL Absolute Nucleated RBC (0.0-0.012) X10*3/uL Nucleated RBC % (auto) (0.0-0.2) /100WBC Sodium (135-145) mmol/L Potassium (3.3-5.1) mmol/L Chloride (96-108) mmol/L Carbon Dioxide (22-29) mmol/L Anion Gap (12-20) BUN (9-16) mg/dL Creatinine (0.5-1.4) mg/dL Estim Creat Clear Calc Estimated GFR Random Glucose (60-115) mg/dL Calcium (8.4-10.2) mg/dL Magnesium (1.6-2.6) mg/dL Total Bilirubin (0.0-1.0) mg/dL Direct Bilirubin (0.0-0.5) mg/dL AST (5-31) U/L ALT (0-31) U/L Alkaline Phosphatase (39-117) U/L Total Protein (6.5-8.0) g/dL Albumin (3.5-5.0) g/dL Lipase (8-78) U/L Urine Color Urine Appearance Urine pH (5.0-9.0) Ur Specific [place] (1.005-1.025) Urine Protein (Neg-Trace) mg/dL Urine Glucose (UA) (Negative) mg/dL Urine Ketones (Negative) mg/dL Urine Blood (Negative) Urine Nitrite (Negative) Ur Leukocyte Esterase (Negative) Urine Test NEGATIVE (NEGATIVE) <EMILY Rebolledo - Last Filed: 09/07/22 12:21> Lab Results 09/07/22 09/07/22 09/07/22 Range/Units 12:20 12:20 12:20 WBC 11.7 H (4.8-10.8) X10*3/uL RBC 4.50 (4.20-5.50) X10*6/uL Hgb 12.1 (12.0-16.0) g/dl Hct 37.8 (37.0-47.0) % MCV 84.0 (80.0-98.0) fL MCH 26.9 L (27.0-33.0) pg MCHC 32.0 (31.0-35.0) g/dl RDW 14.4 (11.0-16.0) % Plt Count 385 (160-400) X10*3/uL MPV 9.0 L (9.4-12.3) fL Immature Gran % (Auto) 0.3 (0.0-0.4) % Neut % (Auto) 75.4 H (45-73) % Lymph % (Auto) 15.9 L (20-40) % [place] % (Auto) 6.7 (2-11) % Eos % (Auto) 1.3 (0-4) % Baso % (Auto) 0.4 (0-2) % Lymph # (Auto) 1.9 (1.2-4.9) X10*3/uL [place] # (Auto) 0.8 (0.1-1.2) X10*3/uL Eos # (Auto) 0.2 (0.0-0.4) X10*3/uL Baso # (Auto) 0.1 (0.0-0.2) X10*3/uL Abs Immat Gran (auto) 0.04 H (0.00-0.03) X10*3/uL Absolute Neuts (auto) 8.8 H (2.0-8.3) x10*3/uL Absolute Nucleated RBC 0.000 (0.0-0.012) X10*3/uL Nucleated RBC % (auto) 0.0 (0.0-0.2) /100WBC Sodium 140 (135-145) mmol/L Potassium 4.6 (3.3-5.1) mmol/L Chloride 108 (96-108) mmol/L Carbon Dioxide 25 (22-29) mmol/L Anion Gap 12 (12-20) BUN 13 (9-16) mg/dL Creatinine 0.70 (0.5-1.4) mg/dL Estim Creat Clear Calc 133.9 Estimated GFR > 60 Random Glucose 108 (60-115) mg/dL Calcium 9.1 (8.4-10.2) mg/dL Magnesium 2.0 (1.6-2.6) mg/dL Total Bilirubin 0.3 (0.0-1.0) mg/dL Direct Bilirubin < 0.2 (0.0-0.5) mg/dL AST 13 (5-31) U/L ALT 10 (0-31) U/L Alkaline Phosphatase 114 (39-117) U/L Total Protein 6.9 (6.5-8.0) g/dL Albumin 3.9 (3.5-5.0) g/dL Lipase 16 (8-78) U/L Urine Color Yellow Urine Appearance Cloudy Urine pH 7.0 (5.0-9.0) Ur Specific [place] <= 1.005 (1.005-1.025) Urine Protein Negative (Neg-Trace) mg/dL Urine Glucose (UA) Negative (Negative) mg/dL Urine Ketones Negative (Negative) mg/dL Urine Blood Negative (Negative) Urine Nitrite Negative (Negative) Ur Leukocyte Esterase Negative (Negative) Urine Test (NEGATIVE) 09/07/22 Range/Units 12:20 WBC (4.8-10.8) X10*3/uL RBC (4.20-5.50) X10*6/uL Hgb (12.0-16.0) g/dl Hct (37.0-47.0) % MCV (80.0-98.0) fL MCH (27.0-33.0) pg MCHC (31.0-35.0) g/dl RDW (11.0-16.0) % Plt Count (160-400) X10*3/uL MPV (9.4-12.3) fL Immature Gran % (Auto) (0.0-0.4) % Neut % (Auto) (45-73) % Lymph % (Auto) (20-40) % [place] % (Auto) (2-11) % Eos % (Auto) (0-4) % Baso % (Auto) (0-2) % Lymph # (Auto) (1.2-4.9) X10*3/uL [place] # (Auto) (0.1-1.2) X10*3/uL Eos # (Auto) (0.0-0.4) X10*3/uL Baso # (Auto) (0.0-0.2) X10*3/uL Abs Immat Gran (auto) (0.00-0.03) X10*3/uL Absolute Neuts (auto) (2.0-8.3) x10*3/uL Absolute Nucleated RBC (0.0-0.012) X10*3/uL Nucleated RBC % (auto) (0.0-0.2) /100WBC Sodium (135-145) mmol/L Potassium (3.3-5.1) mmol/L Chloride (96-108) mmol/L Carbon Dioxide (22-29) mmol/L Anion Gap (12-20) BUN (9-16) mg/dL Creatinine (0.5-1.4) mg/dL Estim Creat Clear Calc Estimated GFR Random Glucose (60-115) mg/dL Calcium (8.4-10.2) mg/dL Magnesium (1.6-2.6) mg/dL Total Bilirubin (0.0-1.0) mg/dL Direct Bilirubin (0.0-0.5) mg/dL AST (5-31) U/L ALT (0-31) U/L Alkaline Phosphatase (39-117) U/L Total Protein (6.5-8.0) g/dL Albumin (3.5-5.0) g/dL Lipase (8-78) U/L Urine Color Urine Appearance Urine pH (5.0-9.0) Ur Specific [place] (1.005-1.025) Urine Protein (Neg-Trace) mg/dL Urine Glucose (UA) (Negative) mg/dL Urine Ketones (Negative) mg/dL Urine Blood (Negative) Urine Nitrite (Negative) Ur Leukocyte Esterase (Negative) Urine Test NEGATIVE (NEGATIVE) <EMILY Mena - Last Filed: 09/07/22 16:58> Independent Interpretation I performed an independent interpretation of an: Ultrasound and CT Scan <EMILY Mena - Last Filed: 09/07/22 16:58> Radiology Impression Discussion of test interpretation with radiology: I have reviewed the radiologist's reading. <EMILY Mena - Last Filed: 09/07/22 16:58> External Record Review External record reviewed: Outpatient record and Prior outpatient labs <EMILY Mena - Last Filed: 09/07/22 16:58> Medications Administered Discontinued Medications Generic Name Dose Route Start Last Admin Trade Name Freq PRN Reason Stop Dose Admin Iohexol 85 ml 09/07/22 15:00 09/07/22 15:01 Iohexol 350 Mg/Ml 100 Ml Infus..Btl IV 09/07/22 15:01 85 ml ONCE ONE Administration <EMILY Rebolledo - Last Filed: 09/07/22 12:21> Medications Administered Discontinued Medications Generic Name Dose Route Start Last Admin Trade Name Freq PRN Reason Stop Dose Admin Iohexol 85 ml 09/07/22 15:00 09/07/22 15:01 Iohexol 350 Mg/Ml 100 Ml Infus..Btl IV 09/07/22 15:01 85 ml ONCE ONE Administration <EMILY Mena - Last Filed: 09/07/22 16:58> Critical Care Time Critical Care Time Critical Care Time: No <EMILY Mena Last Filed: 09/07/22 16:58> Discharge Plan Discharge Clinical Impression: Abdominal pain <EMILY Rebolledo Last Filed: 09/07/22 12:21> Patient Disposition: Home, Self-Care <EMILY Rebolledo - Last Filed: 09/07/22 12:21> Instructions: Abdominal Pain (ED) <EMILY Rebolledo - Last Filed: 09/07/22 12:21> Additional Instructions: Your CT scans and ultrasound today were unremarkable. No acute causes of your pain were identified. Your lab work was unremarkable in your urine test was negative for infection and . Recommend following up with the primary care doctor. Rest, no strenuous activity. If you develop new or worsening symptoms call 911 or come back to the ER for further evaluation. <EMILY Rebolledo - Last Filed: 09/07/22 12:21> Prescriptions: No Action albuterol sulfate 90 mcg/actuation HFA aerosol inhaler 2 puff PO Q6H PRN (Reason: shortness of breath or wheezing) 30 Days Qty: 8.5 8RF citalopram 10 mg tablet 20 mg PO DAILY 90 Days Qty: 180 2RF omeprazole 20 mg capsule,delayed release(DR/EC) 20 mg PO BID fexofenadine [Andreea Allergy] 180 mg tablet 180 mg PO DAILY 90 Days Qty: 90 2RF <EMILY Rebolledo - Last Filed: 09/07/22 12:21> Referrals: Amber Green NP [Primary Care Provider] - <EMILY Rebolledo - Last Filed: 09/07/22 12:21> Interventions: ED Discharge Assessment Last Done: 09/07/22 16:52 <EMILY Rebolledo - Last Filed: 09/07/22 12:21> Discharge Date/Time: 09/07/22 16:53 <EMILY Rebolledo - Last Filed: 09/07/22 12:21>
[2022-09-07 12:24] LABS: MANUAL DIFF FLAG NO
[2022-09-07 12:27] LABS: Basophils Absolute Auto 0.1 X10*3/uL (0.0-0.2); Basophils Percent Auto 0.4 % (0-2); Eosinophils Absolute Auto 0.2 X10*3/uL (0.0-0.4); Eosinophils Percent Auto 1.3 % (0-4); Hematocrit 37.8 % (37.0-47.0); Hemoglobin 12.1 g/dl (12.0-16.0); Imm Gran Abs Auto 0.04 X10*3/uL (0.00-0.03); Imm Gran Pct Auto 0.3 % (0.0-0.4); Lymphocytes Absolute Auto 1.9 X10*3/uL (1.2-4.9); Lymphocytes Percent Auto 15.9 % (20-40); Mean Corpuscular Hemoglobin 26.9 pg (27.0-33.0); Monocytes Absolute Auto 0.8 X10*3/uL (0.1-1.2); Monocytes Percent Auto 6.7 % (2-11); Neutrophils Absolute Auto 8.8 x10*3/uL (2.0-8.3); Neutrophils Percent Auto 75.4 % (45-73); Platelet Count 385 X10*3/uL (160-400); Red Cell Distribution Width 14.4 % (11.0-16.0); White Blood Count 11.7 X10*3/uL (4.8-10.8)
[2022-09-07 12:31] LABS: Appearance Urine Cloudy; Color Urine Yellow; Glucose Urine UA Negative (Negative); Leukocyte Esterase Urine Negative (Negative); Nitrite Urine Negative (Negative); Specific Gravity - Urine <= 1.005 (1.005-1.025); Urine Blood Negative (Negative); Urine Ketones Negative (Negative); Urine Protein Negative (Neg-Trace)
[2022-09-07 12:35] LABS: UPreg QC Valid YES; Urine Pregnancy NEGATIVE (NEGATIVE)
[2022-09-07 12:43] LABS: Alanine Aminotransferase 10 U/L (0-31); Albumin Level 3.9 g/dL (3.5-5.0); Alkaline Phosphatase 114 U/L (39-117); Anion Gap 12 (12-20); Aspartate Amino Transferase 13 U/L (5-31); Bilirubin Direct < 0.2 mg/dL (0.0-0.5); Bilirubin Total 0.3 mg/dL (0.0-1.0); Blood Urea Nitrogen 13 mg/dL (9-16); Calcium 9.1 mg/dL (8.4-10.2); Carbon Dioxide 25 mmol/L (22-29); Chloride 108 mmol/L (96-108); Creatinine Clr Calc Pharmacy 133.9; Estimated Glomerular Filt Rate > 60; Glucose Random 108 mg/dL (60-115); Lipase 16 U/L (8-78); Potassium 4.6 mmol/L (3.3-5.1); Sodium 140 mmol/L (135-145); Total Protein 6.9 g/dL (6.5-8.0)
[2022-09-07 14:45] VITALS: BP 119/75; PULSE 91; RESP 16; TEMP 36.1; O2SAT 100
[2022-09-07] MEDS: iohexoL 350 MG/ML 100 ML INFUS..BTL 85 ML IV (15:01)
== END 2022-09-07 16:53 | disposition home or self-care (01) ==
PROVIDERS: Physician Assistant; Emergency Provider Student in an Organized Health Care Education/Training Program; PCP Hospitalist
DX: R10.31 Right lower quadrant pain (principal); R10.2 Pelvic and perineal pain; E66.9 Obesity, unspecified; R11.2 Nausea with vomiting, unspecified; Z68.35 Body mass index [BMI] 35.0-35.9, adult; Z79.899 Other long term (current) drug therapy
CPT/HCPCS: 36415; 74177; 76830; 76856; 80048; 80076; 81003; 81025; 83690; 83735; 85025; 93975; 99283; 99284; Q9967

== ENCOUNTER 2023-06-03 08:10 | Outpatient (AMB) | payer SELFPAY ==
[2023-06-03 08:22] VITALS: BP 122/78; PULSE 107; TEMP 36.8; O2SAT 98; BMI 38.4
--- NOTE | 2023-06-03 08:22 | AM.OFFWIN_ITS ---
Intake Vital Signs 06/03/23 08:22 Height 5 ft 3 in Weight 98.43 kg BMI 38.4 BP 122/78 Blood Pressure Location Rt brachial Position Sitting Pulse 107 H Pulse Source Pulse Oximeter Temp 98.2 F Temp Source Temporal Artery Scan Pulse Oximetry (%) 98 Oxygen Delivery Method Room Air Intake Visit Reasons: EST/fatigue/body aches/-[id number] Intake Note: pt is here for body aches, fatigue, cough, headaches, congestion Patient Tobacco Use Status: Never used Tobacco Allergies adhesive tape [ADHESIVE TAPE] Allergy (Intermediate, Verified 06/03/23 08:23) RASH detergents Allergy (Severe, Uncoded 07/11/22 08:54) Hives, face swelling Medical tape Allergy (Intermediate, Uncoded 07/11/22 08:54) hives Do you need a note to return to daycare/school/sports/work: Yes HPI HPI Comments History of Present Illness Details 23-year-old who presents with fatigue, m alaise, myalgias, cough, headache, subjective fevers and chills that started yesterday old decided.? 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 ? Denies chest pain, shortness of breath, nausea, vomiting, abdominal pain, headache vision change, dizziness, weakness, changes in bowel or urinary habits Physical exam w/ faint expiratory wheezing History and physical exam concerning for viral illness versus bronchitis versus flu versus COVID versus RSV.? Unlikely pneumonia, ACS, dissection, pulmonary embolism, acute respiratory distress Plan at this time viral testing will discharge patient home with supportive measures.? Educated patient on diagnosis and treatment plan, answered all question, patient verbalizes understanding.? At this time patient will be discharged home, advised to return with new or worsening symptoms.? Educated on worrisome signs and symptoms and when to return.? At this time I feel comfortable discharge home. [facility] History Pharyngitis Serous otitis media PCOS (polycystic ovarian syndrome) Viral illness Sore throat Yeast infection Obesity (BMI 35.0-39.9 without comorbidity) Etonogestrel implant for control Family history of breast cancer gene mutation in first degree relative Cervical cancer screening Asthma, mild intermittent, well-controlled Otitis media Sinus infection Chronic GERD Surgical History [place] teeth extracted History of tonsillectomy Family History Mother Breast cancer Diverticulitis Father No problems noted. 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 Current occupational exposures/hazards: No Sexual orientation: Straight/Heterosexual Gender identity: Female Cognitive needs: No Hearing needs: No Vision needs: Yes Female Reproductive History Menstrual Age of Menarche: 9 Review of Systems Const Details: Constitutional : No Weight loss, No Fever, No Chills, + Fatigue, + Malaise ENT/Mouth : No sore throat, No Rhinorrhea, + congestion Eyes: No Eye Pain, No Swelling, No Redness Cardiovascular : No Chest Pain, No SOB, No Dyspnea on Exertion, No Orthopnea, No Edema, No Palpitations Respiratory : + Cough, No Sputum, No Wheezing Gastrointestinal : No Nausea, No Vomiting, No Diarrhea, No Constipation, No abdominal Pain, No Hematochezia, No Melena Genitourinary : No Dysuria, No Urinary Frequency, No Hematuria, Musculoskeletal : No joint pain, No Myalgias, No Joint Swelling Skin : No Skin Lesions, No rash Neuro : No Weakness, No Numbness, No Dizziness, + Headache Psych : No Anxiety/Panic, No Depression All other systems reviewed and are negative All systems reviewed & are unremarkable except as noted in HPI and below Physical Exam Vital Signs: Last Vital Signs Temp 98.2 F 06/03/23 08:22 Pulse 107 H 06/03/23 08:22 BP 122/78 06/03/23 08:22 Pulse Ox 98 06/03/23 08:22 Oxygen Delivery Method Room Air 06/03/23 08:22 BMI result Body Mass Index 38.4 Vital signs stable Appearance: Alert.? Oriented X3.? No acute distress.? Head: Normocephalic, atraumatic, no step-offs or deformities Eyes: Pupils equal, round and reactive to light.? Neck: Normal inspection.? Neck supple.? CVS: Normal heart rate and rhythm.? Pulses normal.? Respiratory: No respiratory distress.? Breath sounds w/ faint expiratory wheezing .? Abdomen: Soft and nontender.? Skin: Skin warm and dry.? Normal skin color.? Normal skin turgor.? Extremities: No lower extremity edema.? No calf ttp. 5/5 strength to bilateral upper and lower extremities Neuro: Oriented X 3.? No motor deficit.? No sensory deficit. CN 2-12 intact Assessment & Plan Assessment & Plan (1) Viral respiratory illness: Code(s): J98.8 - Other specified respiratory disorders; B97.89 - Other viral agents as the cause of diseases classified elsewhere Plan Take your medications as prescribed. If you were prescribed antibiotics today, it is important that you take your medication to their entirety, do not skip any doses, do not finish them early. Follow-up with your primary care provider this week. Return to the emergency department with new or worsening symptoms. Such as f ceci, chills, chest pain, shortness of breath, nausea, vomiting, dizziness, headache, vision changes, lethargy In case of emergency call 911 Orders: Orders SARS-CoV2/FLU/RSV Today B34.9 - Viral infection, unspecified Medications: New albuterol sulfate 90 mcg/actuation 2 puffs inhalation Q6H PRN 6.7 grams 0RF shortness of breath or wheezing prednisone 20 mg PO DAILY 5 days 5 tabs 0RF Coding Level of Care Code Est Pt Level 3 (72576) Diagnoses Viral respiratory illness J98.8; B97.89
== END 2023-06-03 08:51 | disposition home or self-care (01) ==
PROVIDERS: PCP Hospitalist; Visit Provider Physician Assistant
DX: J98.8 Other specified respiratory disorders (principal); B97.89 Other viral agents as the cause of diseases classified elsewhere
CPT/HCPCS: 99213

== ENCOUNTER 2023-06-03 11:39 | Outpatient (REF) | payer OTHER, SELFPAY ==
[2023-06-03 13:08] LABS: Influenza A PCR NEGATIVE (Negative); Influenza B PCR NEGATIVE (Negative); Resp Syncy Virus RNA Qual PCR NEGATIVE (Negative); SARS COV2 PCR INHOUSE NEGATIVE (Negative)
== END 2023-06-03 11:40 | disposition home or self-care (01) ==
LOC: HO.LNP 11:39
PROVIDERS: Visit Provider Physician Assistant
DX: B34.9 Viral infection, unspecified (principal); Z11.52 Encounter for screening for COVID-19
CPT/HCPCS: 0241U

== ENCOUNTER 2023-08-30 11:11 | Outpatient (REF) | payer BC, SELFPAY ==
[2023-08-30 12:07] LABS: MANUAL DIFF FLAG NO
[2023-08-30 12:22] LABS: Basophils Absolute Auto 0.1 X10*3/uL (0.0-0.2); Basophils Percent Auto 0.4 % (0-2); Eosinophils Absolute Auto 0.4 X10*3/uL (0.0-0.4); Eosinophils Percent Auto 3.3 % (0-4); Hematocrit 38.4 % (37.0-47.0); Imm Gran Abs Auto 0.06 X10*3/uL (0.00-0.03); Imm Gran Pct Auto 0.5 % (0.0-0.4); Lymphocytes Absolute Auto 2.6 X10*3/uL (1.2-4.9); Lymphocytes Percent Auto 22.6 % (20-40); Mean Corpuscular HGB Conc 31.3 g/dl (31.0-35.0); Mean Corpuscular Hemoglobin 25.3 pg (27.0-33.0); Mean Platelet Volume 8.7 fL (9.4-12.3); Monocytes Percent Auto 8.7 % (2-11); Neutrophils Absolute Auto 7.3 x10*3/uL (2.0-8.3); Neutrophils Percent Auto 64.5 % (45-73); Platelet Count 497 X10*3/uL (160-400); Red Blood Count 4.74 X10*6/uL (4.20-5.50); Red Cell Distribution Width 14.5 % (11.0-16.0); White Blood Count 11.4 X10*3/uL (4.8-10.8)
[2023-08-30 13:09] LABS: Alanine Aminotransferase 27 U/L (0-31); Albumin Level 4.2 g/dL (3.5-5.0); Alkaline Phosphatase 124 U/L (39-117); Anion Gap 13 (12-20); Aspartate Amino Transferase 21 U/L (5-31); Bilirubin Total 0.2 mg/dL (0.0-1.0); Blood Urea Nitrogen 13 mg/dL (9-16); Calcium 9.3 mg/dL (8.4-10.2); Carbon Dioxide 25 mmol/L (22-29); Chloride 107 mmol/L (96-108); Estimated Glomerular Filt Rate > 60; Glucose Random 106 mg/dL (60-115); Potassium 3.8 mmol/L (3.3-5.1); Sodium 141 mmol/L (135-145); Total Protein 7.9 g/dL (6.5-8.0)
[2023-08-30 13:16] LABS: TSH reflex Free T4 0.54 uIU/mL (0.32-4.0)
== END 2023-08-30 11:12 | disposition home or self-care (01) ==
LOC: HO.LAB 11:11
PROVIDERS: PCP Family Medicine; Visit Provider Nurse Practitioner
DX: R10.10 Upper abdominal pain, unspecified (principal); K21.9 Gastro-esophageal reflux disease without esophagitis
CPT/HCPCS: 36415; 80053; 84443; 85025

== ENCOUNTER 2023-08-30 11:11 | Outpatient (AMB) | payer BC, SELFPAY ==
--- NOTE | 2023-08-30 11:15 | MHC.OFFVIS ---
Intake Vital Signs 08/30/23 11:17 Height 5 ft 3 in Weight 216 lb 14.958 oz BMI 38.4 BP 125/96 H Blood Pressure Location Rt brachial Position Sitting Pulse 113 H Intake Visit Reasons: Abdominal pain Intake Note: Ofelia presents in office today for GERD. CC: Patient states that her GERD was acting up and she began taking Omeprazole 40 mg in the evenings. She states that she would like to discuss medications today as she is planning to become in the next few years. She states that when she misses a dose of the Omeprazole she gets diarrhea that dupont , Spool Sander Required: No Allergies banana Allergy (Severe, Verified 08/30/23 11:22) Itching adhesive tape [ADHESIVE TAPE] Allergy (Intermediate, Verified 08/30/23 11:22) RASH No Known Drug Allergies Allergy (Unknown, Verified 08/30/23 11:22) none detergents Allergy (Severe, Uncoded 07/11/22 08:54) Hives, face swelling Medical tape Allergy (Intermediate, Uncoded 07/11/22 08:54) hives HPI Abdominal pain HPI Details Assessment & Plan (1) GERD (gastroesophageal reflux disease): ?Code(s): K21.9 - Gastro-esophageal reflux disease without esophagitis ?Plan: She has been having worse GERD, especially with any fatty foods like avocado etc. She avoids sauces, but when she gets the GERD it is VERY severe even with drinking water. When she had her acute attack, afterwards the [facility] released a notice that the water was contaminated with giardia - she had N/V and diarrhea and this may have been the cause. When the acid is bad, she will have looser stools and it will irritate her rectum and the stool will be yellow. This may point to bile, and even though she had a CT 04/2021 w/o gallstones, the GB may not be working well. She is agreeable to having a HIDA scan. I will also add famotidine to use for breakthrough as she continues her protonix am. She is moving her bowels well w/ o CIC. she will go for labs and I have added an HP stool to be thorough. ROV after HIDA scan. (2) Abdominal bloating: ?Code(s): R14.0 - Abdominal distension (gaseous) (3) Abdominal pain: ?Code(s): R10.9 - Unspecified abdominal pain ? ? ? Orders: Orders NM hepatobiliary w pharm Today R10.9 - Unspecifie d abdominal pain ? H pylori Ag StoolA Today R10.9 - Unspecifie d abdominal pain ? Medications: New famotidine (Pepcid ) 40 mg? PO BEDTIME 30 tabs 3RF K21.9 - Gastro-eso phageal reflux dis ease without esoph agitis ? LABS: Not obtained HIDA scan NOT OBTAINED CORRESPONDENCE On 09/06/22 @ 14:30 Nakia Eaton Wrote To ZiyadSeptember I called patient - currently at her PCP's office being seen. I did advise her of s/s that would warrant an emergency room visit. Patient is agreeable and will contact our office for anything further. On 09/06/22 @ 10:32 Tracy Lackey Wrote To [facility] Advise her to keep the 09/26 appt, and if it gets severe report to the ER - since I have been out, my schedule is pretty impossible (and I have not seen her in a year!). If she thinks this is the same feeling as her past diverticulitis attacks, then I will send an antibiotic before the appt - please call and triage this for me, Jacob. On 09/06/22 @ 08:37 Malorie Pascual Wrote To ZiyadSeptember (2) PT called and stated that she is getting stabbing pains in her stomach LRQ she said its been going on for about 5 days now, after she eats, it's not consistent but it comes and goes, the pain is about an 8 on a scale of 1-10 10 being the worst. ? she is also experiencing some abdominal bloating and she said when she sits in certain positions that the pain in her stomach happens also. please advise. she does have an appointment with you TODAY'S VISIT THIS PATIENT HAS BEEN LOST TO FOLLOW-UP SINCE 08/2021 She has had a lot of stress and a difficult time the last couple of years as her mother was diagnosed with breast cancer and recently . This explains the lapse in follow-up. She went back to omeprazole from pantoprazole because she found it worked better. However, she recently had to escalate the dose from 20-40 mg. This is working somewhat well but she still has breakthrough with certain foods particularly acid he foods or high fat foods. An odd thing she notices that if she skips even 1 dose she seems to have very bilious diarrhea. This may point to somebody who isn't over bile produce her and she may benefit from a light dose of a bile binding agent such as cholestyramine. I think we should reinstate the HIDA scan as I really question whether her gallbladder is part of the differential diagnosis even though she has had no gallstones she could have some biliary dyskinesia. She is also still struggling with PCOS that has not yet controlled. She has been having odd desires to smell things like gasoline and must he smells and she is worried about peak. She has not had any labs in over a year because she had a lapse in primary care provider so I will order some basic labs as well as a thyroid because she is complaining of severe fatigue. Return office visit in 4 weeks [facility] Medical History Pharyngitis Serous otitis media PCOS (polycystic ovarian syndrome) Viral illness Sore throat Yeast infection Obesity (BMI 35.0-39.9 without comorbidity) Etonogestrel implant for control Family history of breast cancer gene mutation in first degree relative Cervical cancer screening Asthma, mild intermittent, well-controlled Otitis media Sinus infection Chronic GERD Surgical History [place] teeth extracted History of tonsillectomy Family History Mother Breast cancer Diverticulitis Father No problems noted. 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 Current occupational exposures/hazards: No Sexual orientation: Straight/Heterosexual Gender identity: Female Cognitive needs: No Hearing needs: No Vision needs: Yes Female Reproductive History Menstrual Age of Menarche: 9 Review of Systems Const Reports fatigue, Denies fever(s), Denies night sweats, Denies poor appetite and Denies weight loss Eyes Details: glasses Reports requires corrective lenses ENT Reports Normal hearing present, Denies dental pain, Denies dysphagia, Denies hearing loss, Denies mouth pain, Denies odynophagia, Denies throat swelling, Denies tongue swelling and Reports other (Dentition adequate) Card Reports no additional complaints Resp Reports no additional complaints GI Details: Denies abdominal pain, Denies melena, Reports bloating, Denies hematochezia, Denies constipation, Denies GI cramping, Denies dysphagia, Denies excessive flatus, Denies early satiety, Reports heartburn, Reports diarrhea, Denies nausea, Denies odynophagia, Denies vomiting and Denies hematemesis Skin/Breast Denies pruritus, Denies lesions, Denies rash and Denies jaundice Neuro Reports Normal hearing present and Denies Abnormal speech present Endo Reports fatigue Aller/Immun Denies throat swelling and Denies tongue swelling Physical Exam Vital Signs: Last Vital Signs Pulse 113 H 08/30/23 11:17 BP 125/96 H 08/30/23 11:17 BMI result Body Mass Index 38.4 Const General: cooperative, no acute distress, well developed and well groomed Nutritional Appearance: well nourished and obese Orientation/consciousness: oriented to person, oriented to place and oriented to time Limitations: No language barrier HEENT Head: Yes normocephalic and Yes atraumatic Eyes General: appearance normal, both eyes and all related structures Pupils: Equal, round and reactive pupils present Neck Neck: Yes normal visual inspection and Yes no lymphadenopathy Thyroid: Thyroid normal Resp Effort & Inspection: normal respiratory effort and able to speak in complete sentences Auscultation: clear to auscultation bilaterally Cardio Rate: regular rate Rhythm: regular rhythm Heart sounds: Normal, physiologic split S2 sound present Peripheral pulses: radial pulses present and posterior tibial pulses present GI Inspection: No distended, Yes Abdominal panniculus present and Yes obesity Palpation (GI): Soft to palpation, nontender, no guarding, not rigid and No hepatosplenomegaly present Percussion: Yes normal to percussion Auscultation: normal bowel sounds Rectal Exam - Female: deferred Skin General skin exam: no rashes or lesions noted, turgor normal, skin not dry, no jaundice, No spider nevi and no striae Rashes: no rashes Nails: normal Neuro General: oriented to person, oriented to place and oriented to time Cranial nerves: Yes Equal, round and reactive pupils present and Yes Normal hearing present Speech: No Abnormal speech present Extrem General: Yes normal to inspection, No clubbing, No cyanosis and No edema Psych Appearance: grossly normal and well kempt Mental Status: mental status grossly normal Speech and movement: Normal speech and movement present Affect: normal affect Attitude: cooperative Thought process: Normal thought process present and not confabulating Thought content: Normal thought content present Insight: Fair insight present (Psych) and Limited insight present (Psych) Judgement: Fair judgement present (Psych) and Limited judgement present (Psych) Assessment & Plan Assessment & Plan (1) Upper abdominal pain: Code(s): R10.10 - Upper abdominal pain, unspecified (2) GERD (gastroesophageal reflux disease): Code(s): K21.9 - Gastro-esophageal reflux disease without esophagitis Plan THIS PATIENT HAS BEEN LOST TO FOLLOW-UP SINCE 08/2021 She has had a lot of stress and a difficult time the last couple of years as her mother was diagnosed with breast cancer and recently . This explains the lapse in follow-up. She went back to omeprazole from pantoprazole because she found it worked better. However, she recently had to escalate the dose from 20-40 mg. This is working somewhat well but she still has breakthrough with certain foods particularly acid he foods or high fat foods. An odd thing she notices that if she skips even 1 dose she seems to have very bilious diarrhea. This may point to somebody who isn't over bile produce her and she may benefit from a light dose of a bile binding agent such as cholestyramine. I think we should reinstate the HIDA scan as I really question whether her gallbladder is part of the differential diagnosis even though she has had no gallstones she could have some biliary dyskinesia. She is also still struggling with PCOS that has not yet controlled. She has been having odd desires to smell things like gasoline and must he smells and she is worried about peak. She has not had any labs in over a year because she had a lapse in primary care provider so I will order some basic labs as well as a thyroid because she is complaining of severe fatigue. Return office visit in 4 weeks Orders: Orders NM hepatobiliary w pharm 08/30/23 R10.10 - Upper abdominal pain, unspecified Comprehensive Met. Panel 08/30/23 R10.10 - Upper abdominal pain, unspecified Complete Blood Count Auto Diff 08/30/23 R10.10 - Upper abdominal pain, unspecified TSH reflex Free T4 08/30/23 R10.10 - Upper abdominal pain, unspecified Medications: New omeprazole 40 mg PO DAILY 30 days 30 caps 3RF cholestyramine (with sugar) 4 gram administer w/meal; avoid other meds within 1hr before or 4-6hr after dose 4 grams PO DAILY 60 ea 3RF K21.9 - Gastro-esophageal reflux disease without esophagitis, R10.10 - Upper abdominal pain, unspecified Coding Level of Care Code Est Pt Level 4 (00194) Diagnoses Upper abdominal pain R10.10 GERD (gastroesophageal reflux disease) K21.9
[2023-08-30 11:17] VITALS: BP 125/96; PULSE 113; BMI 38.4
== END 2023-08-30 11:44 | disposition home or self-care (01) ==
PROVIDERS: PCP Family Medicine; Visit Provider Nurse Practitioner
DX: R10.10 Upper abdominal pain, unspecified (principal); K21.9 Gastro-esophageal reflux disease without esophagitis
CPT/HCPCS: 99214

== ENCOUNTER 2023-11-04 16:05 | Outpatient (AMB) | payer BC, SELFPAY ==
--- NOTE | 2023-11-04 16:14 | A.OFFPC_ITS ---
Vital Signs 11/04/23 16:18 Height 5 ft 1.81 in Weight 213 lb 2 oz BMI 39.2 BP 108/70 Blood Pressure Location Lt radial Respiration 16 Pulse 81 Pulse Source Pulse Oximeter Temp 98 F Temp Source Oral Pulse Oximetry (%) 98 Oxygen Delivery Method Room Air Intake Visit Reasons: ESTABLISH CARE Intake Note: New patient pt visit. Sprained left ankle. Went to [facility] Urgent care last week. 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 Required: No Is last menstrual period known: Yes Last menstrual period: 10/04/23 Allergies banana Allergy (Severe, Verified 11/04/23 16:21) Itching adhesive tape [ADHESIVE TAPE] Allergy (Intermediate, Verified 11/04/23 16:21) RASH No Known Drug Allergies Allergy (Unknown, Verified 11/04/23 16:21) none detergents Allergy (Severe, Uncoded 11/04/23 16:16) Hives, face swelling Medical tape Allergy (Intermediate, Uncoded 11/04/23 16:16) hives Medication List - Last Reconciled 11/04/23 by DEYSI Velasquez- albuterol sulfate 90 mcg/actuation 2 puffs inhalation Q6H PRN citalopram 20 mg (2 x 10 mg) PO DAILY 3 months fexofenadine (Andreea Allergy) 180 mg PO DAILY 3 months omeprazole 40 mg PO DAILY 30 days Tobacco use date assessed: 11/04/23 HPI HPI Comments History of Present Illness Details 23-year-old female with diverticulitis, MDD, mild intermittent asthma, GERD, PCOS, adhd 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 Went to [facility] UC for this. Cont to have some pain. Using star wrap. Asthma - seen at [facility] ED about 1 month ago for exacerbation. Currently only using Maria Alejandra. Admits an allergy component. She is taking daily Andreea. Has never been on a controller inhaler. MDD/SHAI on Celexa, taking as directed. Admits uptick in sx after of Mom in Jun 2023. Was active with a counselor but had a change of insurance. Interested in a new referral. Has gained weight. Hard time losing weight especially given the of her mom. Wonders if there is anything that can help her lose weight. [facility] Medical History (Updated 11/05/23 @ 07:37 by Shayy Villalobos [facility]) Family history of breast cancer gene mutation in first degree relative PCOS (polycystic ovarian syndrome) Yeast infection Etonogestrel implant for control Cervical cancer screening Asthma, mild intermittent, well-controlled Chronic GERD Surgical History (Updated 11/05/23 @ 07:34 by Shayy Villalobos [facility]) S/P tonsillectomy [place] teeth extracted Family History Mother Breast cancer Diverticulitis Father No problems noted. 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 1. Little interest or pleasure in doing things: more than half the days 2. Feeling down, depressed, or hopeless: more than half the days 3. Trouble falling or staying asleep, or sleeping too much: several days 4. Feeling tired or having little energy: nearly every day 5. Poor appetite or overeating: nearly every day 6. Feeling bad about yourself - or that you are a failure or have let yourself or your family down: more than half the days 7. Trouble concentrating on things, such as reading the newspaper or watching television: nearly every day 8. Moving or speaking so slowly that other people could have noticed. Or the opposite - being so fidgety or restless that you have been moving around a lot more than usual: nearly every day 9. Thoughts that you would be better off or of hurting yourself in some way: not at all Total score: 19 Depression Screening Interpretation: Positive Depression Screening Follow-up: Existing condition and New Medication prescribed Depression Screening Done: Yes 13883 - PHQ-9 Billing: Yes Source: Developed by Drs. Kendrick Tyson, Louise Maynard, Corona Patel and colleagues, with an educational taisha from [employer]. Thrive Questionnaire Date Thrive assessed: 11/04/23 I am a: Patient What is your living situation today?: I have a steady place to live Within the past 12 months, did the food you bought not last and you didn't have the money to get more?: Never true Within the past 12 months, did you worry whether your food would run out before you got money to buy more?: Never true Do you have trouble paying for medicines?: No Do you have trouble getting transportation to medical appointments?: No Do you have trouble paying your heating and electricity bill?: No Do you have trouble taking care of your child, family member or friend?: No Do you have trouble with day-to-day activities such as bathing, preparing meals, shopping, managing finances, etc.?: No Are you currently unemployed and looking for a job?: No Are you interested in more education?: No Please select the resources that you would like help with: None Currently or been in a relationship where the following occur: no concerns reported THRIVE Score: 0 AUDIT C Alcohol Use Questionnaire (AUDIT-C) 1. How often do you have a drink containing alcohol?: Monthly or less 2. How many drinks containing alcohol do you have on a typical day when you are drinking?: 1 or 2 3. How often do you have six or more drinks on one occasion?: Never Total Score: 1 Score Reviewed/Action Taken: Yes SHAI-7 AMB Questionnaire SHAI-7 Date SHAI - 7 assessed: 11/04/23 Feeling nervous, anxious, or on edge: 2 = More than half the days Not being able to stop or control worryin = More than half the days Worrying too much about different things: 3 = Nearly every day Trouble relaxin = Nearly every day Being so restless that it is hard to sit still: 3 = Nearly every day Becoming easily annoyed or irritable: 1 = Several days Feeling afraid as if something awful might happen: 2 = More than half the days Total SHAI-7 score (0-4 normal; 5-9 mild; 10-14 moderate; 15-21 severe): 16 Source: Developed by Drs. Kendrick Tyson, Louise Maynard, Coorna Patel and colleagues, with an educational taisha from [employer]. SHAI-7 Assessment Billing SHAI-7 Assessment Tool: SHAI-7 Assessment 20752 ACT Questionnaire In the past 4 weeks, how much of the time did your asthma keep you from getting as much done at work, school or at home?: A little of the time During the past 4 weeks, how often have you had shortness of breath?: 1-2 times a week During the past 4 weeks, how often did your asthma symptoms wake you up at night or earlier than usual in the morning?: Not at all During the past 4 weeks, how often have you had to use your rescue inhaler or nebulizer medication?: 2-3 times a week How would you rate your asthma control during the past 4 weeks?: Well controlled ACT Interpretation: Positive ACT Branch: Follow up visit scheduled Score: 20 Review of Systems Const All systems reviewed & are unremarkable except as noted in HPI and below Physical exam (Primary Care) Vital Signs: Last Vital Signs Temp 98 F 11/04/23 16:18 Pulse 81 11/04/23 16:18 Resp 16 11/04/23 16:18 BP 108/70 11/04/23 16:18 Pulse Ox 98 11/04/23 16:18 Oxygen Delivery Method Room Air 11/04/23 16:18 BMI result Body Mass Index 39.2 BMI Assessment/Plan discussion: High BMI High, discussed plan: lifestyle Tobacco/Smoking Status: Tobacco use Status Tobacco use date assessed 11/04/23 11/04/23 16:25 Patient Tobacco Use Status Never used Tobacco 11/04/23 16:14 e-Cigarette/Vaping Use Never Used 11/04/23 16:14 PHQ-9: PHQ-9 Score PHQ-9: Total score 19 11/04/23 16:25 Depression Screening Interpretation: Positive Depression Screening Follow-up: Existing condition and New Medication prescribed Thrive Assessment: Date of Thrive Assessment Date Thrive assessed 11/04/23 11/04/23 16:25 Currently or been in a relationship where the following occur: no concerns reported Const Other: Awake alert oriented Pleasant and cooperative Regular rate and rhythm Lung sounds clear to auscultation bilat, mildly diminished throughout Left ankle wrapped in Star wrap, antalgic gait favoring left side Assessment and Plan Assessment & Plan (1) Asthma, mild intermittent, well-controlled: Comment: Currently only using albuterol. The plan will be to start her on Combivent 1 puff 4 times per day as needed. Advised that she can use this as both a maintenance and a rescue inhaler. Code(s): J45.20 - Mild intermittent asthma, uncomplicated (2) SHAI (generalized anxiety disorder): Comment: Currently on Celexa 20 mg daily. Referred to counseling. Start Wellbutrin 150 mg 1 tab p.o. daily to see if this can help control her symptoms as well as aid in weight loss. Code(s): F41.1 - Generalized anxiety disorder (3) MDD (major depressive disorder), recurrent episode: Comment: Currently on Celexa 20 mg daily, referred for counseling. Start Wellbutrin 150 mg 1 tab p.o. daily to see if this can help control her symptoms as well as aid in weight loss. Code(s): F33.9 - Major depressive disorder, recurrent, unspecified Qualifiers: Major depression episode severity: mild Qualified Code(s): F33.0 - Major depressive disorder, recurrent, mild (4) Severe obesity (BMI 35.0-39.9) with comorbidity: Comment: Start Wellbutrin 150 mg p.o. daily. Code(s): E66.01 - Morbid (severe) obesity due to excess calories (5) Anemia: Comment: Reports a history of anemia. We will check labs. Code(s): D64.9 - Anemia, unspecified Qualifiers: Anemia type: unspecified type Qualified Code(s): D64.9 - Anemia, unspecified (6) Seasonal allergies: Comment: Continue Andreea daily. Code(s): J30.2 - Other seasonal allergic rhinitis (7) Family history of breast cancer gene mutation in first degree relative: Comment: Patient's mother, June of 2023. Code(s): Z84.81 - Family history of carrier of genetic disease Orders: Orders Comprehensive [place]. Panel Fast 11/04/23 F33.9 - Major depressive disorder, recurrent, unspecified, F41.1 - Generalized anxiety disorder Vitamin D 1,25 dihydroxy 11/04/23 F33.9 - Major depressive disorder, recurrent, unspecified, F41.1 - Generalized anxiety disorder TSH reflex Free T4 11/04/23 F33.9 - Major depressive disorder, recurrent, unspecified, F41.1 - Generalized anxiety disorder Microalbumin, Random (w Creat) 11/04/23 F33.9 - Major depressive disorder, recurrent, unspecified, F41.1 - Generalized anxiety disorder Hemoglobin A1c 11/04/23 F33.9 - Major depressive disorder, recurrent, unspecified, F41.1 - Generalized anxiety disorder IRON PROFILE 11/04/23 F33.9 - Major depressive disorder, recurrent, unspecified, F41.1 - Generalized anxiety disorder Complete Blood Count no Diff 11/04/23 F33.9 - Major depressive disorder, recurrent, unspecified, F41.1 - Generalized anxiety disorder Vitamin B12 and Folate 11/04/23 F33.9 - Major depressive disorder, recurrent, unspecified, F41.1 - Generalized anxiety disorder Lipid Panel 11/04/23 F33.9 - Major depressive disorder, recurrent, unspecified, F41.1 - Generalized anxiety disorder Referrals Counseling Referral F33.9 - Major depressive disorder, recurrent, unspecified, F41.1 - Generalized anxiety disorder, J45.20 - Mild intermittent asthma, uncomplicated Medications: New ipratropium-albuterol 20-100 mcg/actuation (Combivent Respimat) space evenly during waking hours 1 puff inhalation QID 4 grams 4RF bupropion HCl XL (Wellbutrin XL) 150 mg PO QAM 90 tabs 0RF Patient Instructions: Return to office in about 6 weeks to discuss your labs as well as follow up on your asthma, weight, mood after starting Combivent and Wellbutrin. Return to office sooner if needed. Coding Level of Care Code Est Pt Level 4 (76031) Diagnoses Asthma, mild intermittent, well-controlled J45.20 SHAI (generalized anxiety disorder) F41.1 Mild episode of recurrent major depressive disorder F33.0 Major depression episode severity: mild Severe obesity (BMI 35.0-39.9) with comorbidity E66.01 Anemia, unspecified type D64.9 Anemia type: unspecified type Seasonal allergies J30.2 Family history of breast cancer gene mutation in first degree relative Z84.81 Additional Codes SHAI-7 Assessment Billing - SHAI-7 Assessment Tool: SHAI-7 Assessment 36549 ([id number])
[2023-11-04 16:18] VITALS: BP 108/70; PULSE 81; RESP 16; TEMP 36.6; O2SAT 98; BMI 39.2
== END 2023-11-04 16:42 | disposition home or self-care (01) ==
PROVIDERS: PCP Family Medicine; Visit Provider Nurse Practitioner Family
DX: J45.20 Mild intermittent asthma, uncomplicated (principal); F33.0 Major depressive disorder, recurrent, mild; E66.01 Morbid (severe) obesity due to excess calories; Z68.39 Body mass index [BMI] 39.0-39.9, adult; F41.1 Generalized anxiety disorder; D64.9 Anemia, unspecified; J30.2 Other seasonal allergic rhinitis; Z84.81 Family history of carrier of genetic disease
CPT/HCPCS: 96127; 99214

== ENCOUNTER 2024-01-01 12:55 | Outpatient (AMB) | payer SELFPAY ==
--- NOTE | 2024-01-01 12:58 | A.OFFPC_ITS ---
Vital Signs 01/01/24 13:04 Weight 207 lb 7 oz BP 124/82 Blood Pressure Location Lt brachial Position Sitting Respiration 16 Pulse 99 Pulse Source Pulse Oximeter Temp 97.7 F Temp Source Temporal Artery Scan Pulse Oximetry (%) 98 Oxygen Delivery Method Room Air Intake Visit Reasons: FU WELLBUTRIN START AND LABS Intake Note: patient here for follow up on her wellbutrin. Audio Tape Librarian Required: No Is last menstrual period known: Yes Last menstrual period: 12/08/23 Post menopausal: No Patient : No Allergies banana Allergy (Severe, Verified 01/01/24 13:01) Itching adhesive tape [ADHESIVE TAPE] Allergy (Intermediate, Verified 01/01/24 13:01) RASH detergents Allergy (Severe, Uncoded 11/04/23 16:16) Hives, face swelling Medical tape Allergy (Intermediate, Uncoded 11/04/23 16:16) hives wellbutrin Adverse Reaction (Mild, Uncoded 01/01/24 13:19) shaking Medication List - Last Reconciled 01/01/24 by DEYSI Velasquez- albuterol sulfate 90 mcg/actuation 2 puffs inhalation Q6H PRN citalopram 20 mg (2 x 10 mg) PO DAILY 3 months fexofenadine (Andreea Allergy) 180 mg PO DAILY 3 months ipratropium-albuterol 20-100 mcg/actuation (Combivent Respimat) 1 puff inhalation QID omeprazole 40 mg PO DAILY 30 days Tobacco use date assessed: 11/04/23 Dental Screening Dental Screen Date: 01/01/24 Did you have a dental visit in the last 12 months?: Yes Did you have a dental problem in the last 6 months where you did not have access to dental care?: No Was dental information given to patient?: Patient has dentist HPI HPI Comments History of Present Illness Details 23-year-old female with diverticulitis, MDD, mild intermittent asthma, GERD, PCOS Status post tonsillectomy Here today for f/u of chronic conditions. She lost insurance since her last office visit and was not able to f/u... she now has insurance... however .. Started wellbutrin and felt great clearest mentally, great concentration, mood was good . However, on the 4-5th day on wellbutrin shaking really bad and had syncope at work; went to [facility] ED. Did not think this was related to Wellbutrin. Admits it was hot and she did not eat. Reports labs were fine except glucose of around 70mg/dl .. The next day, took it again but cont to feel weird and dizzy. Day after that had syncope again after feeling dizzy, heart racing. Went back to ED. Once again labs and work up negative. She was advised to stop taking @ that time. She has not taken this since. Added to allergy list today. Then developed strep throat and was on AB [amox] - developed abd pain so had poor po intake. ED visit for this, too. CT scan done, told of diverticulitis. [12/17/2023] Was RXd 10 days of dual AB therapy. Abd is body rolling machine tender to touch; managing po intake; does not have appt w/ [facility] scheduled soon. + wt loss however she attributes this to the above. Worried about labs during ED visits. Elevated WBC. First low glucose then elevated glucose. Did not start Combivent. Asthma is doing well. In regards to mood, having increased depression and cont anxiety. Did not hear anything about counseling yet; i have sent a message to the [facility] to f/u with her directly to help. Exam Awake alert NAD scleras nonicteric bilat MMM RRR LS CTAB Abd normoactive bowel sounds, tender in epigastrum and transverse lower abd. no peritoneal signs. Plan Increase celexa to 40mg from 20mg... ok to take the rest of your 10 mg tabs and take three of them [30mg] until gone and then start the 40mg. Message sent to GI to request sooner appt Get labs done today; i have requested labs from [facility] Full liquid diet, adv as tolerated. to low fiber. FU with GI RTo in 6 weeks 30 min FU SHAI, Abd pain This note is constructed using voice recognition software. While every effort has been made to ensure accuracy in design drafter chief, still errors may have been included Sometimes, these errors may affect the content or meaning of the given sentence . Total time spent caring for the patient today was 50 minutes. This includes time spent before the visit reviewing the chart, time spent during the visit, and time spent after the visit on documentation [facility] Medical History (Updated 01/01/24 @ 14:00 [facility] Family history of breast cancer gene mutation in first degree relative PCOS (polycystic ovarian syndrome) Yeast infection Etonogestrel implant for control Cervical cancer screening Asthma, mild intermittent, well-controlled Chronic GERD Surgical History (Updated 11/05/23 @ 07:34 by LUCAS Velasquez) S/P tonsillectomy [place] teeth extracted Family History Mother Breast cancer Diverticulitis Father No problems noted. 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 Kendrick Tyson, Louise Maynard, Corona Patel and colleagues, with an educational taisha from [employer]. Physical exam (Primary Care) Vital Signs: Last Vital Signs Temp 97.7 F 01/01/24 13:04 Pulse 99 01/01/24 13:04 Resp 16 01/01/24 13:04 BP 124/82 01/01/24 13:04 Pulse Ox 98 01/01/24 13:04 Oxygen Delivery Method Room Air 01/01/24 13:04 Tobacco/Smoking Status: Tobacco use Status Tobacco use date assessed 11/04/23 01/01/24 13:07 Patient Tobacco Use Status Never used Tobacco 01/01/24 13:07 e-Cigarette/Vaping Use Never Used 01/01/24 13:07 Thrive Assessment: Date of Thrive Assessment Date Thrive assessed 11/04/23 01/01/24 13:07 Assessment and Plan Assessment & Plan (1) Anemia: Comment: Reports a history of anemia. We will check labs. Code(s): D64.9 - Anemia, unspecified Qualifiers: Anemia type: unspecified type Qualified Code(s): D64.9 - Anemia, unspecified (2) MDD (major depressive disorder), recurrent episode: Code(s): F33.9 - Major depressive disorder, recurrent, unspecified Qualifiers: Major depression episode severity: mild Qualified Code(s): F33.0 - Major depressive disorder, recurrent, mild (3) SHAI (generalized anxiety disorder): Code(s): F41.1 - Generalized anxiety disorder (4) Asthma, mild intermittent, well-controlled: Comment: Currently only using albuterol. The plan will be to start her on Combivent 1 puff 4 times per day as needed. Advised that she can use this as both a maintenance and a rescue inhaler. Code(s): J45.20 - Mild intermittent asthma, uncomplicated (5) Diverticulitis of sigmoid colon: Code(s): K57.32 - Diverticulitis of large intestine without perforation or abscess without bleeding Orders: Orders Comprehensive Met. Panel Today D64.9 - Anemia, unspecified LDL Cholesterol Direct Today D64.9 - Anemia, unspecified Medications: New citalopram (Celexa) 40 mg PO DAILY 90 tabs 1RF Refilled ipratropium-albuterol 20-100 mcg/actuation (Combivent Respimat) space evenly during waking hours 1 puff inhalation QID 4 grams 4RF omeprazole 40 mg PO DAILY 30 caps 3RF 30 days Discontinued citalopram Discontinued Reason: Doctor's Order 20 mg (2 x 10 mg) PO DAILY 3 months 180 tabs 2RF F41.8 - Other specified anxiety disorders Coding Level of Care Code Est Pt Level 5 (58896) Complex EM visit Add On G2211 Diagnoses Anemia, unspecified type D64.9 Anemia type: unspecified type Mild episode of recurrent major depressive disorder F33.0 Major depression episode severity: mild SHAI (generalized anxiety disorder) F41.1 Asthma, mild intermittent, well-controlled J45.20 Diverticulitis of sigmoid colon K57.32
[2024-01-01 13:04] VITALS: BP 124/82; PULSE 99; RESP 16; TEMP 36.5; O2SAT 98
== END 2024-01-01 16:29 | disposition home or self-care (01) ==
PROVIDERS: PCP Nurse Practitioner Family; Visit Provider Nurse Practitioner Family
DX: D64.9 Anemia, unspecified (principal); F33.0 Major depressive disorder, recurrent, mild; F41.1 Generalized anxiety disorder; J45.20 Mild intermittent asthma, uncomplicated; K57.32 Diverticulitis of large intestine without perforation or abscess without bleeding
CPT/HCPCS: 99215; G2211

== ENCOUNTER 2024-01-01 13:47 | Outpatient (REF) | payer SELFPAY ==
[2024-01-01 17:34] LABS: Hematocrit 37.8 % (37.0-47.0); Mean Corpuscular HGB Conc 31.7 g/dl (31.0-35.0); Mean Corpuscular Volume 81.8 fL (80.0-98.0); Mean Platelet Volume 9.4 fL (9.4-12.3); Platelet Count 471 X10*3/uL (160-400); Red Blood Count 4.62 X10*6/uL (4.20-5.50); Red Cell Distribution Width 15.8 % (11.0-16.0); White Blood Count 10.2 X10*3/uL (4.8-10.8)
[2024-01-01 18:22] LABS: Estimated Average Glucose 108 mg/dL; Hemoglobin A1c % 5.4 % (<6.0)
[2024-01-01 18:43] LABS: Folate 10.4 ng/mL (> or = 4.0); Vitamin B12 400 pg/mL (200-900)
[2024-01-01 19:28] LABS: Alanine Aminotransferase 15 U/L (0-31); Albumin Level 4.5 g/dL (3.5-5.0); Alkaline Phosphatase 105 U/L (39-117); Anion Gap 15 (12-20); Aspartate Amino Transferase 18 U/L (5-31); Bilirubin Total 0.2 mg/dL (0.0-1.0); Blood Urea Nitrogen 8 mg/dL (9-16); Calcium 10.1 mg/dL (8.4-10.2); Carbon Dioxide 25 mmol/L (22-29); Chloride 102 mmol/L (96-108); Estimated Glomerular Filt Rate > 60; Glucose Random 86 mg/dL (60-115); Iron 42 mcg/dL (30-160); Percent Iron Saturation 16 % (15-50); Potassium 3.8 mmol/L (3.3-5.1); Sodium 138 mmol/L (135-145); Total Iron Binding Capacity 269 mcg/dL (228-428); Total Protein 8.1 g/dL (6.5-8.0); Unsaturated Iron Binding 227 ug/dL
[2024-01-02 15:57] LABS: LDL Cholesterol Direct 97 mg/dL (<100)
[2024-01-11 11:49] LABS: VITAMIN D (1,25 OH) D3 63 pg/mL; Vit D (1,25-Dihydroxy) Total 63 pg/mL (18-72); Vitamin D (1,25 OH) D2 <8 pg/mL
== END 2024-01-01 13:48 | disposition home or self-care (01) ==
LOC: HO.WFDLDS 13:47
PROVIDERS: Visit Provider Nurse Practitioner Family
DX: F33.9 Major depressive disorder, recurrent, unspecified (principal); F41.1 Generalized anxiety disorder; D64.9 Anemia, unspecified; Z13.1 Encounter for screening for diabetes mellitus; Z13.220 Encounter for screening for lipoid disorders
CPT/HCPCS: 36415; 80053; 82607; 82652; 82746; 83036; 83540; 83721; 84443; 85027

== ENCOUNTER 2024-05-29 13:06 | Outpatient (AMB) | payer BC, SELFPAY ==
--- NOTE | 2024-05-29 13:07 | MHC.PC.OV ---
Vital Signs 05/29/24 13:10 Height 5 ft 3 in Weight 209 lb BMI 37.0 BP 132/72 Blood Pressure Location Lt brachial Position Sitting Respiration 13 Pulse 95 Pulse Source Pulse Oximeter Pulse Oximetry (%) 99 Oxygen Delivery Method Room Air Intake Visit Reasons: Follow up appointment Intake Note: follow up and patient also needs refill on albuterol Emergency Department Clinician Required: No Allergies banana Allergy (Severe, Verified 05/29/24 13:43) Itching adhesive tape [ADHESIVE TAPE] Allergy (Intermediate, Verified 05/29/24 13:43) RASH detergents Allergy (Severe, Uncoded 05/29/24 13:43) Hives, face swelling Medical tape Allergy (Intermediate, Uncoded 05/29/24 13:43) hives wellbutrin Adverse Reaction (Mild, Uncoded 05/29/24 13:43) shaking Medication List - Last Reconciled 05/29/24 by Shayy Villalobos, HEALTH EDUCATION DIRECTOR- albuterol sulfate 90 mcg/actuation 2 puffs inhalation Q6H PRN citalopram (Celexa) 40 mg PO DAILY fexofenadine (Andreea Allergy) 180 mg PO DAILY 3 months ipratropium-albuterol 20-100 mcg/actuation (Combivent Respimat) 1 puff inhalation QID omeprazole 40 mg PO DAILY 30 days Tobacco use date assessed: 11/04/23 Dental Screening Dental Screen Date: 01/01/24 HPI HPI Comments History of Present Illness Details 24-year-old female with diverticulitis, MDD, mild intermittent asthma, GERD, PCOS, adhd 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 She has been under my care for these conditions and reports that the symptoms have been exacerbated following her mother's passing. This significant event has compounded her emotional distress, and she acknowledges feeling overwhelmed. The patient has been taking citalopram 40 mg daily, and she perceives a slight improvement in her mood and functionality. However, she experiences challenges due to her insurance issues, which had temporarily disrupted her access to care and medication adjustments. Her underlying asthma complicates her condition, particularly during episodes of allergic rhinitis, which exacerbate her respiratory symptoms. The patient reports episodes of wheezing and throat constriction exacerbated by exposure to allergens, such as dust. She has been relying on albuterol, though her supply had recently run out due to insurance challenges. She experiences nasal congestion with dryness and postnasal drip, which affect her sleep quality. Unable to get Combivent w/o insurance. Physical Exam General: Awake, alert. No apparent distress Eyes: Sclera and conjunctiva clear bilaterally Nose: Nares patent, turbinates pale and edematous bilat, clear drainage Throat: Moist mucosa membrane, pharynx within normal limits Cardiovascular: Regular rate and rhythm Respiratory: Clear to auscultation bilaterally, dim throughout Plan - Continue citalopram at 40 mg daily to manage anxiety and depression. - Referral made to [facility] for grief and mental health support. - Start montelukast (Singulair) 10 mg once daily at bedtime to assist with asthma and allergies. - Continue Andreea daily; trial discontinuation may be considered based on patient stability. - Prescribe CombiVent for daily use to better control asthma symptoms. - Refill albuterol inhaler for acute asthma exacerbations. - Declined tdap and flu today. Patient was informed and verbally consented to the use of an ambient scribe for clinic note documentation during this visit. Discussion Notes I discussed with the patient the continuation of citalopram at 40 mg for her anxiety and depression, acknowledging her reported benefit from this dosage. We explored the value of counseling to assist her in processing the loss of her mother and managing ongoing stressors. I provided a referral to [facility] due to their relatively efficient appointment availability. For her asthma exacerbated by allergies, I introduced montelukast to her regimen, explaining its dual benefit for both allergic and asthmatic symptoms. The importance of maintaining her Andreea or allowing for its discontinuation based on her condition was also discussed. I highlighted the need for consistent asthma management, hence the addition of CombiVent to her daily routine, emphasizing its role devoid of steroids, reducing the risks associated with long-term steroid use. Refill was assured for her albuterol inhaler for emergency use, and we discussed her nasal symptoms, recommending saline nasal sprays for symptomatic relief. Patient Instructions - Continue taking citalopram 40 mg daily as directed. - Use CombiVent as prescribed four times a day. - Use albuterol inhaler as needed for asthma symptoms. - Begin taking montelukast 10 mg at bedtime. - Continue or consider reducing Andreea use depending on symptoms. - Book follow-up counseling appointment with [facility]. - Use saline nasal spray regularly for dry nasal passages. - Consider updating tetanus vaccination at a later visit. - Reach out through the patient portal for any questions or concerns before scheduled follow-up. RTO 3 MO 30 MIN FU ASTHMA/MOOD/ALLERGIES This note is constructed using voice recognition software. While every effort has been made to ensure accuracy in chief customer officer, still errors may have been included Sometimes, these errors may affect the content or meaning of the given sentence . Total time spent caring for the patient today was 40 minutes. This includes time spent before the visit reviewing the chart, time spent during the visit, and time spent after the visit on documentation [facility] Medical History (Updated 05/29/24 @ 13:51 by Shayy Villalobos, [facility]) Family history of breast cancer gene mutation in first degree relative PCOS (polycystic ovarian syndrome) Yeast infection Etonogestrel implant for control Cervical cancer screening Asthma, mild intermittent, well-controlled Chronic GERD Surgical History (Updated 11/05[facility]23 @ 07:[facility] S/P tonsillectomy [place] teeth extracted Family History Mother Breast cancer Diverticulitis Father No problems noted. 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 1. Little interest or pleasure in doing things: more than half the days 2. Feeling down, depressed, or hopeless: more than half the days 3. Trouble falling or staying asleep, or sleeping too much: more than half the days 4. Feeling tired or having little energy: more than half the days 5. Poor appetite or overeating: several days 6. Feeling bad about yourself - or that you are a failure or have let yourself or your family down: more than half the days 7. Trouble concentrating on things, such as reading the newspaper or watching television: more than half the days 8. Moving or speaking so slowly that other people could have noticed. Or the opposite - being so fidgety or restless that you have been moving around a lot more than usual: not at all 9. Thoughts that you would be better off or of hurting yourself in some way: not at all Total score: 13 22890 - PHQ-9 Billing: Yes Source: Developed by Drs. Kendrick Tyson, Louise Maynard, Corona Patel and colleagues, with an educational taisha from [employer]. Thrive Questionnaire Date Thrive assessed: 05/29/24 I am a: Patient What is your living situation today?: I have a steady place to live Within the past 12 months, did the food you bought not last and you didn't have the money to get more?: Sometimes True Within the past 12 months, did you worry whether your food would run out before you got money to buy more?: Never true Do you have trouble paying for medicines?: No Do you have trouble getting transportation to medical appointments?: No Do you have trouble paying your heating and electricity bill?: Yes Do you have trouble taking care of your child, family member or friend?: No Do you have trouble with day-to-day activities such as bathing, preparing meals, shopping, managing finances, etc.?: No Are you currently unemployed and looking for a job?: No Are you interested in more education?: No Please select the resources that you would like help with: None Currently or been in a relationship where the following occur: No concerns reported THRIVE Score: 2 AUDIT C Alcohol Use Questionnaire (AUDIT-C) 1. How often do you have a drink containing alcohol?: 2-4 times a month 2. How many drinks containing alcohol do you have on a typical day when you are drinking?: 1 or 2 3. How often do you have six or more drinks on one occasion?: Never Total Score: 2 SHAI-7 AMB Questionnaire SHAI-7 Date SHAI - 7 assessed: 05/29/24 Feeling nervous, anxious, or on edge: 3 = Nearly every day Not being able to stop or control worryin = Nearly every day Worrying too much about different things: 3 = Nearly every day Trouble relaxin = Nearly every day Being so restless that it is hard to sit still: 3 = Nearly every day Becoming easily annoyed or irritable: 3 = Nearly every day Feeling afraid as if something awful might happen: 3 = Nearly every day Total SHAI-7 score (0-4 normal; 5-9 mild; 10-14 moderate; 15-21 severe): 21 Source: Developed by Drs. Kendrick Tyson, Louise Maynard, Corona Patel and colleagues, with an educational taisha from [employer]. SHAI-7 Assessment Billing SHAI-7 Assessment Tool: SHAI-7 Assessment 10535 ACT Questionnaire In the past 4 weeks, how much of the time did your asthma keep you from getting as much done at work, school or at home?: Most of the time During the past 4 weeks, how often have you had shortness of breath?: Once a day During the past 4 weeks, how often did your asthma symptoms wake you up at night or earlier than usual in the morning?: Once a week During the past 4 weeks, how often have you had to use your rescue inhaler or nebulizer medication?: 1-2 times a week How would you rate your asthma control during the past 4 weeks?: Somewhat controlled ACT Interpretation: Positive ACT Branch: Follow up visit scheduled Score: 12 Physical exam (Primary Care) Vital Signs: Last Vital Signs Pulse 95 05/29/24 13:10 Resp 13 05/29/24 13:10 BP 132/72 05/29/24 13:10 Pulse Ox 99 05/29/24 13:10 Oxygen Delivery Method Room Air 05/29/24 13:10 BMI result Body Mass Index 37.0 Tobacco/Smoking Status: Tobacco use Status Tobacco use date assessed 11/04/23 05/29/24 13:07 Patient Tobacco Use Status Never used Tobacco 05/29/24 13:07 e-Cigarette/Vaping Use Never Used 05/29/24 13:07 PHQ-9: PHQ-9 Score PHQ-9: Total score 13 05/29/24 13:43 Thrive Assessment: Date of Thrive Assessment Date Thrive assessed 05/29/24 05/29/24 13:10 Currently or been in a relationship where the following occur: No concerns reported Coding Level of Care Code Est Pt Level 5 (52746) Complex EM visit Add On G2211 Diagnoses SHAI (generalized anxiety disorder) F41.1 Mild episode of recurrent major depressive disorder F33.0 Major depression episode severity: mild Asthma, mild intermittent, well-controlled J45.20 Seasonal allergies J30.2 Tetanus, diphtheria, and acellular pertussis (Tdap) vaccination declined Z28.21 Influenza vaccination declined Z28.21 Additional Codes Asthma Control Questionnaire - ACT Interpretation: Positive ([id number]) SHAI-7 Assessment Billing - SHAI-7 Assessment Tool: SHAI-7 Assessment 76567 ([id number]) PHQ-9 - 78257 - PHQ-9 Billing: Yes ([id number]) Assessment & Plan Assessment & Plan (1) SHAI (generalized anxiety disorder): Code(s): F41.1 - Generalized anxiety disorder Category: Medical (2) MDD (major depressive disorder), recurrent episode: Code(s): F33.9 - Major depressive disorder, recurrent, unspecified Category: Medical Qualifiers: Major depression episode severity: mild Qualified Code(s): F33.0 - Major depressive disorder, recurrent, mild (3) Asthma, mild intermittent, well-controlled: Comment: Currently only using albuterol. The plan will be to start her on Combivent 1 puff 4 times per day as needed. Advised that she can use this as both a maintenance and a rescue inhaler. Code(s): J45.20 - Mild intermittent asthma, uncomplicated Category: Medical (4) Seasonal allergies: Comment: Continue Andreea daily. Code(s): J30.2 - Other seasonal allergic rhinitis Category: Medical (5) Tetanus, diphtheria, and acellular pertussis (Tdap) vaccination declined: Code(s): Z28.21 - Immunization not carried out because of patient refusal Category: Medical (6) Influenza vaccination declined: Code(s): Z28.21 - Immunization not carried out because of patient refusal Plan . Orders: Referrals Counseling Referral F33.0 - Major depressive disorder, recurrent, mild, F41.1 - Generalized anxiety disorder Medications: New montelukast 10 mg PO BEDTIME 90 tabs 1RF Refilled citalopram (Celexa) 40 mg PO DAILY 90 tabs 1RF ipratropium-albuterol 20-100 mcg/actuation (Combivent Respimat) space evenly during waking hours 1 puff inhalation QID 4 grams 4RF albuterol sulfate 90 mcg/actuation 2 puffs inhalation Q6H PRN 6.7 grams 1RF shortness of breath or wheezing
[2024-05-29 13:10] VITALS: BP 132/72; PULSE 95; RESP 13; O2SAT 99; BMI 37.0
== END 2024-05-29 13:59 | disposition home or self-care (01) ==
PROVIDERS: PCP Nurse Practitioner Family; Visit Provider Nurse Practitioner Family
DX: J45.20 Mild intermittent asthma, uncomplicated (principal); F41.1 Generalized anxiety disorder; F33.0 Major depressive disorder, recurrent, mild; J30.2 Other seasonal allergic rhinitis; Z28.21 Immunization not carried out because of patient refusal

== ENCOUNTER → 2024-05-29 13:06 | Outpatient (BNVA) | payer BC, SELFPAY | PROVIDERS: PCP Nurse Practitioner Family; Visit Provider Nurse Practitioner Family | DX: F41.1 Generalized anxiety disorder (principal); F33.0 Major depressive disorder, recurrent, mild; J45.20 Mild intermittent asthma, uncomplicated; J30.2 Other seasonal allergic rhinitis; Z28.21 Immunization not carried out because of patient refusal | CPT/HCPCS: 96127; 96160 ==

== ENCOUNTER 2024-06-15 13:34 | Outpatient (AMB) | payer OTHER, SELFPAY ==
--- NOTE | 2024-06-15 13:38 | MHC.OFFWIV ---
Intake Vital Signs 06/15/24 13:42 06/15/24 15:10 Height 5 ft 3 in Weight 209 lb 4 oz BMI 37.1 BP 122/70 Blood Pressure Location Rt brachial Position Sitting Respiration 13 Pulse 105 H 90 Pulse Source Pulse Oximeter Auscultation Pulse Oximetry (%) 96 Oxygen Delivery Method Room Air Intake Visit Reasons: Asthma Intake Note: Patient complaining of asthma has been significantly bad it feels she cant hardly breath, also her gerd is badly, and also extremely emotional x 5 days. Patient has taken 4 test at home all negative but is actively trying to get . Patient Tobacco Use Status: Never used Tobacco Hoop Maker Machine Required: No Is last menstrual period known: Yes Last menstrual period: 05/16/24 Allergies banana Allergy (Severe, Verified 06/15/24 13:51) Itching adhesive tape [ADHESIVE TAPE] Allergy (Intermediate, Verified 06/15/24 13:51) RASH detergents Allergy (Severe, Uncoded 06/15/24 13:51) Hives, face swelling Medical tape Allergy (Intermediate, Uncoded 06/15/24 13:51) hives wellbutrin Adverse Reaction (Mild, Uncoded 06/15/24 13:51) shaking Medication List - Last Reconciled 06/15/24 by Shayy Villalobos, [facility]- albuterol sulfate 90 mcg/actuation 2 puffs inhalation Q6H PRN citalopram (Celexa) 40 mg PO DAILY fexofenadine (Andreea Allergy) 180 mg PO DAILY 3 months ipratropium-albuterol 20-100 mcg/actuation (Combivent Respimat) 1 puff inhalation QID montelukast 10 mg PO BEDTIME omeprazole 40 mg PO DAILY 30 days Do you need a note to return to daycare/school/sports/work: No HPI HPI Comments History of Present Illness Details 24-year-old female with diverticulitis, MDD, mild intermittent asthma, GERD, PCOS Status post tonsillectomy The patient is a 24-year-old female presenting with different sx. She reported that her asthma symptoms worsened approximately five days ago. She described a sensation of her lungs being compressed, leading to difficulties in breathing and the need to use her inhaler more frequently. Although she has experienced a reduction in wheezing, there is an ongoing sensation of not being able to take a full breath, especially when lying down or eating. She also noted infrequent coughing episodes. The patient's symptomatology is further compounded by episodes of anxiety, with concomitant heart palpitations that seem associated with her inhaler use. Additionally, she has been experiencing gastroesophageal reflux symptoms, which she describes as a burning sensation in her chest. She has been on a stable dose of omeprazole for GERD, but the symptoms have persisted and possibly intensified. She also experienced nausea, tenderness in the abdominal area, and diarrhea, contributing to her overall discomfort. Her last menstrual period was on May 16, and her cycles are typically 35 to 40 days, suggesting she is not due for her period. It's important to note that she completed a course of antibiotics around March for strep throat. - Diet: Patient reports eating healthier recently but did indulge in holiday foods which might have contributed to her GI symptoms. - Alcohol: Currently not consuming alcohol as it exacerbates reflux symptoms. Review of Systems - Gastrointestinal: Reports nausea and burning sensation in the chest, tenderness in the abdominal area, and diarrhea. - Cardiovascular: Reports palpitations. - : actively trying to conceive Physical Exam Awake alert NAD MMM RRR LS CTAB Abd soft, mildly tender over epigastrum otherwise nontender, normoactive BS Skin PWD Patient was informed and verbally consented to the use of an ambient scribe for clinic note documentation during this visit. Discussion Notes During the visit, I discussed potential diagnoses of GERD exacerbation, contributing to perceived asthma symptoms. We considered increasing omeprazole to twice daily and the significance of potential gastritis-like symptoms affecting respiratory sensation. I addressed the patient's anxiety and palpitations, noting how her current inhaler's use could exacerbate these issues. I explained the potential for silent reflux causing respiratory symptoms and justified pending further diagnostic evaluation with blood tests and imaging to explore differential diagnoses. I recommended stool tests for bacterial pathogens, explained how various results could guide treatment, and discussed dietary modifications as a symptomatic relief. The patient will be contacted through the patient portal for review of lab results. Patient Instructions - Evaluate for potential H. pylori and Clostridium difficile with stool samples. - Check labs today - Monitor response to treatment and adjust asthma management as necessary - do not feel this is asthma at this time - Recommend follow-up for further evaluation as results become available. - Begin taking omeprazole twice daily after stool samples obtained - Avoid dietary triggers like caffeine and spicy foods to help manage reflux. - Separate meals from fluids to reduce reflux symptoms. - Monitor symptoms closely and report any exacerbation. - Recommend follow-up for further evaluation as results become available This note is constructed using voice recognition software. While every effort has been made to ensure accuracy in shoe shanker, still errors may have been included Sometimes, these errors may affect the content or meaning of the given sentence . Total time spent caring for the patient today was 45 minutes. This includes time spent before the visit reviewing the chart, time spent during the visit, and time spent after the visit on documentation [facility] Medical History (Updated 06/15/24 @ 15:09 by Shayy Villalobos [facility]) Family history of breast cancer gene mutation in first degree relative PCOS (polycystic ovarian syndrome) Yeast infection Etonogestrel implant for control Cervical cancer screening Asthma, mild intermittent, well-controlled Chronic GERD Surgical History (Updated 11/05/23 @ 07:34 [facility] S/P tonsillectomy [place] teeth extracted Family History Mother Breast cancer Diverticulitis Father No problems noted. 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 Current occupational exposures/hazards: No Sexual orientation: Straight/Heterosexual Gender identity: Female Cognitive needs: No Hearing needs: No Vision needs: Yes Female Reproductive History Menstrual Age of Menarche: 9 Date of last menstrual period: 05/16/24 Physical Exam Vital Signs: Last Vital Signs Pulse 105 H 06/15/24 13:42 Resp 13 06/15/24 13:42 BP 122/70 06/15/24 13:42 Pulse Ox 96 06/15/24 13:42 Oxygen Delivery Method Room Air 06/15/24 13:42 BMI result Body Mass Index 37.1 Assessment & Plan Assessment & Plan (1) GERD (gastroesophageal reflux disease): Code(s): K21.9 - Gastro-esophageal reflux disease without esophagitis Qualifiers: Esophagitis presence: with esophagitis Esophagitis bleeding: without hemorrhage Qualified Code(s): K21.00 - Gastro-esophageal reflux disease with esophagitis, without bleeding (2) Oligomenorrhea: Comment: With hirsutism Code(s): N91.5 - Oligomenorrhea, unspecified Qualifiers: Oligomenorrhea type: secondary Qualified Code(s): N91.4 - Secondary oligomenorrhea (3) Palpitations: Code(s): R00.2 - Palpitations (4) Asthma, mild intermittent, well-controlled: Comment: albuterol & Combivent 1 puff 4 times per day as needed. Advised that she can use this as both a maintenance and a rescue inhaler. Code(s): J45.20 - Mild intermittent asthma, uncomplicated (5) Anemia: Comment: Reports a history of anemia. We will check labs. Code(s): D64.9 - Anemia, unspecified Qualifiers: Anemia type: unspecified type Qualified Code(s): D64.9 - Anemia, unspecified Plan . Orders: Orders HCG Quantitative Today K21.9 - Gastro-esophageal reflux disease without esophagitis, N91.5 - Oligomenorrhea, unspecified, R00.2 - Palpitations Magnesium Today K21.9 - Gastro-esophageal reflux disease without esophagitis, N91.5 - Oligomenorrhea, unspecified, R00.2 - Palpitations GI Panel Today K21.9 - Gastro-esophageal reflux disease without esophagitis, N91.5 - Oligomenorrhea, unspecified, R00.2 - Palpitations D Dimer High Sensitivity Today D64.9 - Anemia, unspecified, R00.2 - Palpitations TSH reflex Free T4 Today K21.9 - Gastro-esophageal reflux disease without esophagitis, N91.5 - Oligomenorrhea, unspecified, R00.2 - Palpitations Phosphorus Today K21.9 - Gastro-esophageal reflux disease without esophagitis, N91.5 - Oligomenorrhea, unspecified, R00.2 - Palpitations Complete Blood Count no Diff Today D64.9 - Anemia, unspecified, R00.2 - Palpitations Coding Level of Care Code Est Pt Level 5 (43125) Diagnoses Gastroesophageal reflux disease with esophagitis without hemorrhage K21.00 Esophagitis presence: with esophagitis Esophagitis bleeding: without hemorrhage Secondary oligomenorrhea N91.4 Oligomenorrhea type: secondary Palpitations R00.2 Asthma, mild intermittent, well-controlled J45.20 Anemia, unspecified type D64.9 Anemia type: unspecified type
[2024-06-15 13:42] VITALS: BP 122/70; PULSE 105; RESP 13; O2SAT 96; BMI 37.1
[2024-06-15 15:10] VITALS: PULSE 90
== END 2024-06-15 14:07 | disposition home or self-care (01) ==
PROVIDERS: PCP Nurse Practitioner Family; Visit Provider Nurse Practitioner Family
DX: K21.00 Gastro-esophageal reflux disease with esophagitis, without bleeding (principal); N91.4 Secondary oligomenorrhea; R00.2 Palpitations; J45.20 Mild intermittent asthma, uncomplicated; D64.9 Anemia, unspecified

== ENCOUNTER 2024-06-15 13:34 | Outpatient (REF) | payer BC, SELFPAY ==
[2024-06-15 15:32] LABS: Hematocrit 35.6 % (37.0-47.0); Hemoglobin 11.3 g/dl (12.0-16.0); Mean Corpuscular HGB Conc 31.7 g/dl (31.0-35.0); Mean Corpuscular Hemoglobin 25.4 pg (27.0-33.0); Mean Platelet Volume 8.9 fL (9.4-12.3); Platelet Count 466 X10*3/uL (160-400); Red Blood Count 4.45 X10*6/uL (4.20-5.50); White Blood Count 12.1 X10*3/uL (4.8-10.8)
[2024-06-15 15:39] LABS: D Dimer High Sensitivity < 150 NG/ML
[2024-06-15 16:07] LABS: Phosphorus 3.1 mg/dL (2.7-4.5)
[2024-06-15 16:16] LABS: Creatinine Urine 61.55 mg/dL; Microalbumin Urine < 5.0 mg/L
[2024-06-15 16:25] LABS: HCG Quantitative < 2 mIU/mL
== END 2024-06-15 13:35 | disposition home or self-care (01) ==
LOC: HO.LAB 13:34
PROVIDERS: PCP Nurse Practitioner Family; Visit Provider Nurse Practitioner Family
DX: F33.9 Major depressive disorder, recurrent, unspecified (principal); F41.1 Generalized anxiety disorder; N91.5 Oligomenorrhea, unspecified; R00.2 Palpitations; K21.9 Gastro-esophageal reflux disease without esophagitis; D64.9 Anemia, unspecified
CPT/HCPCS: 36415; 82043; 82570; 83735; 84100; 84443; 84702; 85027; 85379

== ENCOUNTER 2024-07-01 15:12 | Outpatient (AMB) | payer OTHER, SELFPAY ==
--- NOTE | 2024-07-01 16:58 | MHC.PC.OV ---
Intake Visit Reasons: Flue like symptoms Allergies banana Allergy (Severe, Verified 07/01/24 16:59) Itching adhesive tape [ADHESIVE TAPE] Allergy (Intermediate, Verified 07/01/24 16:59) RASH detergents Allergy (Severe, Uncoded 07/01/24 16:59) Hives, face swelling Medical tape Allergy (Intermediate, Uncoded 07/01/24 16:59) hives wellbutrin Adverse Reaction (Mild, Uncoded 07/01/24 16:59) shaking Medication List - Last Reconciled 07/01/24 by Shayy Villalobos, [facility] albuterol sulfate 90 mcg/actuation 2 puffs inhalation Q6H PRN citalopram (Celexa) 40 mg PO DAILY fexofenadine (Andreea Allergy) 180 mg PO DAILY 3 months ipratropium-albuterol 20-100 mcg/actuation (Combivent Respimat) 1 puff inhalation QID montelukast 10 mg PO BEDTIME multivitamin with iron 1 tab PO DAILY omeprazole 40 mg PO DAILY 30 days Tobacco use date assessed: 07/01/24 Dental Screening Dental Screen Date: 07/01/24 Did you have a dental visit in the last 12 months?: Yes Did you have a dental problem in the last 6 months where you did not have access to dental care?: No Was dental information given to patient?: Patient has dentist HPI HPI Comments History of Present Illness Details 24-year-old female with diverticulitis, MDD, mild intermittent asthma, GERD, PCOS Status post tonsillectomy Telehealth The patient is a 24-year-old female presenting with flu-like symptoms. She reports severe congestion, a high fever that has since resolved, a persistent cough, and significant fatigue and body aches. These symptoms began on Saturday evening and have gradually worsened, prompting the patient to schedule this appointment. She has taken three separate COVID-19 tests, all of which returned negative results. Previously, blood work indicated an elevation in white blood cells suggestive of a mild infection; however, it remains unclear if this is related to her current illness. The patient denies sore throat but notes severe postnasal drip. The absence of fever reducers for 24 hours suggests the fever has not returned, aligning with viral rather than bacterial etiology. The patient?s spouse has also been diagnosed with a similar viral infection recently. Review of Systems - Respiratory: Reports persistent cough, severe congestion, no sore throat - General: Reports significant fatigue, body aches - Other: Denies fever with current episode Discussion Notes During the consultation, I discussed the likely diagnosis of influenza, with flu-like symptoms such as congestion, fever, and fatigue consistent with a viral infection. I recommended oseltamivir to limit viral proliferation, explaining that it does not cure the flu but can reduce symptom progression and prevent secondary bacterial infections. I emphasized the importance of supportive care, including rest and hydration and cautioned against returning to work while symptomatic. Should symptoms not improve or worsen, I advised the patient to contact me for further evaluation. The patient was agreeable to the management plan and understood the rationale behind using oseltamivir and the importance of supportive care. Plan - Prescribed oseltamivir Tamiflu) for suspected influenza , recommend starting immediately. - Discussed that supportive care including rest, hydration, and monitoring of symptoms such as asthma should continue. - A work note has been provided due to the patient's absence since Saturday. Return Saturday Patient Instructions - Take Tamiflu as prescribed: one tablet twice daily for five days. - Maintain hydration and rest as much as possible. - Observe symptom improvement and avoid returning to work if fever returns. - Monitor for any worsening of symptoms and notify me if condition does not improve. - Follow up on asthma management, ensuring that it remains controlled. - Check health portal for work release note. Patient was informed and verbally consented to the use of an ambient scribe for clinic note documentation during this visit. Total time spent caring for the patient today was 12 minutes. This includes time spent before the visit reviewing the chart, time spent during the visit, and time spent after the visit on documentation [facility] Medical History (Updated 07/01/24 @ 17:01 by Shayy Villalobos, [facility]) Family history of breast cancer gene mutation in first degree relative PCOS (polycystic ovarian syndrome) Yeast infection Etonogestrel implant for control Cervical cancer screening Asthma, mild intermittent, well-controlled Chronic GERD Surgical History (Updated 11/05/23 @ 07:34 by Shayy Villalobos, [facility]-) S/P tonsillectomy [place] teeth extracted Family History Mother Breast cancer Diverticulitis Father No problems noted. 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 Kendrick Tyson, Louise Maynard, Corona Patel and colleagues, with an educational taisha from [employer]. Physical exam (Primary Care) Tobacco/Smoking Status: Tobacco use Status Tobacco use date assessed 11/04/23 05/29/24 13:07 Patient Tobacco Use Status Never used Tobacco 06/15/24 13:44 e-Cigarette/Vaping Use Never Used 05/29/24 13:07 Thrive Assessment: Date of Thrive Assessment Date Thrive assessed 05/29/24 05/29/24 13:10 Telehealth Telehealth Telehealth Platform: [facility] Location of provider rendering services: practice address Location of patient: address on file Patient Identification confirmed using: Name, : Yes Telehealth method: voice only Patient verbally consented to treatment: Yes Patient verbally consented to billing insurance company: Yes Patient informed of any privacy concerns related to visit: Yes Minutes spent on Phone/Video with Pt.: 6 Coding Level of Care Code Tele Est Pt Level 2 (73975) Complex EM visit Add On G2211 Diagnoses Flu-like symptoms R68.89 Assessment & Plan Assessment & Plan (1) Flu-like symptoms: Code(s): R68.89 - Other general symptoms and signs Category: Medical Plan . Medications: New oseltamivir (Tamiflu) 75 mg PO Q12H 5 days 10 caps 0RF Patient Instructions: Influenza (flu) is an infection in the lungs and breathing passages. It is caused by the influenza virus. There are different strains, or types, of the flu virus from year to year. Unlike the common cold, the flu comes on suddenly and the symptoms can be more severe. These symptoms include a cough, congestion, fever, chills, fatigue, aches, and pains. These symptoms may last for a few weeks. Although the flu can make you feel very sick, it usually doesn't cause serious health problems. Home treatment is usually all you need for flu symptoms. But your doctor may prescribe antiviral medicine to prevent other health problems, such as pneumonia, from developing. The risk of other health problems from the flu is highest for young children (under 5), older adults (over 65), women, people with long-term health conditions, people who live in nursing homes or long-term care centres, and indigenous peoples. How can you care for yourself at home? Get plenty of rest. Drink plenty of fluids. If you have to limit fluids because of a health problem, talk with your doctor before you increase the amount of fluids you drink. Take an eebj-laj-oopxxeu pain medicine if needed, such as acetaminophen (Tylenol), ibuprofen (Advil, Motrin), or naproxen (Aleve), to relieve fever, headache, and muscle aches. Read and follow all instructions on the label. No one younger than 18 should take aspirin. It has been linked to Nando syndrome, a serious illness. Take any prescribed medicine exactly as directed. Do not smoke. Smoking can make the flu worse. If you need help quitting, talk to your doctor about stop-smoking programs and medicines. These can increase your chances of quitting for good. If the skin around your nose and lips becomes sore, put some petroleum jelly (such as Vaseline) on the area. To ease coughing: Suck on cough drops or plain, hard candy. Try an uvoh-koo-wokidhb cough or cold medicine. Read and follow all instructions on the label. Raise your head at night with an extra pillow. This may help you rest if coughing keeps you awake. To avoid spreading the flu Wash your hands regularly, and keep your hands away from your face. Stay home from school, work, and other public places until you are feeling better and your fever has been gone for at least 24 hours. The fever needs to have gone away on its own without the help of medicine. Ask people living with you to talk to their doctors about preventing the flu. They may get antiviral medicine to keep from getting the flu from you. To prevent the flu in the future, get the flu vaccine every fall. Encourage people living with you to get the vaccine. Cover your mouth when you cough or sneeze. If you can, cough or sneeze into the bend of your elbow, not your hands. When should you call for help? Call 911 anytime you think you may need emergency care. For example, call if: You have severe trouble breathing. You have a seizure. Call your doctor or nurse advice line now or seek immediate medical care if: You have trouble breathing. You have a fever with a stiff neck or a severe headache. You have pain or pressure in your chest or belly. You have a fever or cough that returns after getting better. You feel very sleepy, dizzy, or confused. You are not urinating. You have severe muscle pain. You have severe weakness, or you are unsteady. You have medical conditions that are getting worse Watch closely for changes in your health, and be sure to contact your doctor or nurse advice line if: You do not get better as expected. You are having a problem with your medicine.
== END 2024-07-01 17:05 | disposition home or self-care (01) ==
LOC: HO.HMCFM 15:12
PROVIDERS: PCP Nurse Practitioner Family; Visit Provider Nurse Practitioner Family
DX: R68.89 Other general symptoms and signs (principal)

== ENCOUNTER → 2024-07-01 15:12 | Outpatient (BNVA) | payer OTHER, SELFPAY | PROVIDERS: PCP Nurse Practitioner Family; Visit Provider Nurse Practitioner Family ==

== ENCOUNTER 2024-07-17 10:06 | Outpatient (AMB) | payer OTHER, SELFPAY ==
--- NOTE | 2024-07-17 10:30 | AM.OFFWIN_ITS ---
Intake Vital Signs 07/17/24 10:32 Height 5 ft 3 in Weight 205 lb 8 oz BMI 36.4 BP 114/70 Blood Pressure Location Lt brachial Position Sitting Respiration 12 Pulse 129 H Pulse Source Pulse Oximeter Temp 97.9 F Temp Source Oral Pulse Oximetry (%) 98 Oxygen Delivery Method Room Air Intake Visit Reasons: cold/flu Intake Note: Patient complaining of coughing, diarrhea, nausea, fatigue, headache, and bodyaches Patient Tobacco Use Status: Never used Tobacco Allergies banana Allergy (Severe, Verified 07/17/24 10:54) Itching adhesive tape [ADHESIVE TAPE] Allergy (Intermediate, Verified 07/17/24 10:54) RASH detergents Allergy (Severe, Uncoded 07/17/24 10:54) Hives, face swelling Medical tape Allergy (Intermediate, Uncoded 07/17/24 10:54) hives wellbutrin Adverse Reaction (Mild, Uncoded 07/17/24 10:54) shaking Medication List - Last Reconciled 07/17/24 by Shayy Villalobos, [facility]- albuterol sulfate 90 mcg/actuation 2 puffs inhalation Q6H PRN citalopram (Celexa) 40 mg PO DAILY fexofenadine (Andreea Allergy) 180 mg PO DAILY 3 months ipratropium-albuterol 20-100 mcg/actuation (Combivent Respimat) 1 puff inhalation QID montelukast 10 mg PO BEDTIME multivitamin with iron 1 tab PO DAILY omeprazole 40 mg PO DAILY 30 days Do you need a note to return to daycare/school/sports/work: Yes HPI HPI Comments History of Present Illness Details The patient is a 24-year-old female presenting with coughing, diarrhea, nausea, fatigue, headache, and body aches. The symptoms initially began around the of the month when she experienced flu-like symptoms. There was an improvement noted in nasal congestion, but the cough persisted and intensified, particularly at night. The patient used a bronchodilator every four hours with reported relief. Using Combivent with + relief. On the , after attending her niece's birthday green party, she experienced increased fatigue, headache, body aches, congestion, and low-grade fever the following day. Symptoms persisted and worsened throughout the week, leading to severe fatigue and diarrhea on Saturday night into . Diarrhea lasted approximately 12 hours but resolved, allowing her to resume eating. Exertion, such as climbing stairs or doing Pilates, exacerbates her symptoms, leading to dizziness and increased heart rate. Despite completing Tamiflu previously, the patient's symptoms remain unresolved. The patient is concerned about steadily worsening symptoms and potential viral infections, as multiple individuals she encountered were sick around the same time. 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 - Recent Weight Loss: Due to illness and reduced physical activity. Physical Exam Awake alert NAD, mildly ill-appearing Sclera and conjunctiva clear bilat Nares white drainage, turbinates within normal limits, frontal and maxillary sinus tenderness with palpation bilat TM intact and clear bilat MMM, pharynx WNL RR, tachycardic LS coarse rhonchi right lower lobe, productive cough, no distress Results CXR WNL Viral swab negative Discussion Notes I explained to the patient the possibility of multiple viral infections, including influenza, COVID-19, and RSV, and the potential for pneumonia suggested by the auscultation findings. I recommended a nasopharyngeal swab for multiple viruses including flu, COVID-19, and RSV to determine the precise infectious agent. Additionally, I advised obtaining a chest X-ray due to abnormal respiratory findings, specifically at the right lower lobe, to rule out pneumonia. These tests should guide further treatment decisions, including antibiotic use if indicated. I discussed the importance of resting and her potential need to take time off from work to recover adequately. We also discussed the potential of returning to work after recovery or by next Saturday or Saturday depending on symptom resolution. Patient Instructions - Obtain a nasopharyngeal swab for flu, COVID-19, and RSV. - Visit the designated location for a est X-ray. - Rest and limit physical activity to ai d recovery. - Monitor symptoms and seek care if sign ificant worsening occurs. - Follow up through the patient portal f or test results and further guidance. Plan - Perform a nasopharyngeal swab for flu, COVID-19, and RSV to identify the specific virus causing symptoms. - Obtain a chest X-ray to evaluate for p neumonia given respiratory findings. - Review test results to determine the n eed for additional interventions, including antibiotics for suspected pneumonia. - Monitor through patient portal communi cation and adjust treatment as necessary based on results and symptom progression. - Advise extended rest and possible time away from work to allow recovery and mitigate symptom exacerbation. Patient was informed and verbally consented to the use of an ambient scribe for clinic note documentation during this visit. At 1645 pt called w xray and viral swab results New Rx Augementin to cover sinusitis ?? the cause of her cough advised if she does not feel better after starting AB or feels worse that she needs to seek addl care at that time consideration will need to be made about outside referrals given the length of illness paired w/ chronic abnormal CBC she is in agreement w/ this plan of care Total time spent caring for the patient today was 40 minutes. This includes time spent before the visit reviewing the chart, time spent during the visit, and time spent after the visit on documentation, reviewing laboratory results, diagnostic imaging, medications, performing a medically necessary evaluation, counseling on diagnoses, care coordination, ordering appropriate tests, ordering appropriate medications, review of tests performed by other providers, reporting test results with the patient, communication with other healthcare providers. [facility] Medical History (Updated 07/17/24 @ 16:47 by Shayy Villalobos [facility]) Asthma, mild intermittent, well-controlled Cervical cancer screening Chronic GERD Etonogestrel implant for control Family history of breast cancer gene mutation in first degree relative PCOS (polycystic ovarian syndrome) Yeast infection Surgical History (Updated 11/05/23 @ 07:34 by Shayy Villalobos [facility]) S/P tonsillectomy [place] teeth extracted Family History Mother Breast cancer Diverticulitis Father No problems noted. 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 Current occupational exposures/hazards: No Sexual orientation: Straight/Heterosexual Gender identity: Female Cognitive needs: No Hearing needs: No Vision needs: Yes Female Reproductive History Menstrual Age of Menarche: 9 Physical Exam Vital Signs: Last Vital Signs Temp 97.9 F 07/17/24 10:32 Pulse 129 H 07/17/24 10:32 Resp 12 07/17/24 10:32 BP 114/70 07/17/24 10:32 Pulse Ox 98 07/17/24 10:32 Oxygen Delivery Method Room Air 07/17/24 10:32 BMI result Body Mass Index 36.4 Results Reviewed Results Reviewed: [facility] [facility] [place] [id number] XRay Report Signed Patient: Ofelia Jara MR#: [id number] : 2000 Acct:[id number] Age/Sex: 24 / F ADM Date: 07/17/24 Loc: HO.HMGCX Attending Dr: Shayy ZAVALA Ordering Physician: Shayy Villalobos Date of Service: 07/17/24 Procedure(s): XR chest 2V Accession Number(s): [id number] cc: Shayy Villaolbos~ EXAMINATION: XR CHEST 2 VIEWS HISTORY: R68.89 - right lower lobe bronchi and cough COMPARISON: There are no prior studies for comparison. FINDINGS: PA and lateral views of the chest are submitted. The lungs are expanded and clear. There is no pleural effusion, pneumothorax, or pulmonary vascular congestion. The heart is normal in size. The bones are intact. XR/XR chest 2V IMPRESSION: No acute cardiopulmonary abnormality. Electronically signed by: Kendrick Cassidy MD 07/17/2024 12:24 PM [facility] Dictated By: Kendrick Cassidy MD Signed By: <Electronically signed by Kendrick Cassidy MD in OV> 07/17/24 1224 RUN: 07/17/24 1545 PAGE 1 [facility] [address] [place] [id number] Isotope Technician: Smith Mccabe M.D. Specimen Inquiry Name: Ofelia Jara Age/Sex: 24/F : 2000 [id number]#: [id number] Attend Dr: Shayy Villalobos [facility] Re07/17/24 Status: REG [facility] Disch: SPEC : [id number] TIFF: 07/17/24100 STATUS: COMP REQ : [id number] RECD: 07/17/24 [facility] DR: Shayy Villalobos [facility] COMP: 07/17/245 ENTERED: 07/17/[address] [facility] DR: ORDERED: SARS/FLU/RSV Test Result Flag Reference Influenza A PCR NEGATIVE Negative Influenza B PCR NEGATIVE Negative RSV RNA QualPCR NEGATIVE Negative SARSCOV2 RT-PCR NEGATIVE Negative All test results must be correlated with clinical findings. Negative results do not preclude SARS-CoV2, influenza A virus, influenza B virus and/or RSV infection and should not be used as the sole basis for treatment or other patient management decisions. Negative results must be combined with clinical observations, patient history, and epidemiological information. This test has not been evaluated for monitoring treatment of infection. This test has been authorized by the FDA under an Emergency Use Authorization (EUA) for use by authorized laboratories. Testing performed on the [employer] GeneXpert utilizing real-time RT-PCR. All SARS CoV2 and positive influenza A/B results are reported to [facility]. END OF REPORT DD/ 1200 TD/TT: 07/17/24 1205 [employer]: Assessment & Plan Assessment & Plan (1) Asthma, mild intermittent, well-controlled: Comment: albuterol & Combivent 1 puff 4 times per day as needed. Advised that she can use this as both a maintenance and a rescue inhaler. Code(s): J45.20 - Mild intermittent asthma, uncomplicated (2) Flu-like symptoms: Code(s): R68.89 - Other general symptoms and signs (3) Abnormal CBC: Code(s): R79.89 - Other specified abnormal findings of blood chemistry (4) Acute bacterial sinusitis: Code(s): J01.90 - Acute sinusitis, unspecified; B96.89 - Other specified bacterial agents as the cause of diseases classified elsewhere Plan . Orders: Orders SARS-CoV2/FLU/RSV Today R09.89 - Other specified symptoms and signs involving the circulatory and respiratory systems, R68.89 - Other general symptoms and signs XR chest 2V Today J45.20 - Mild intermittent asthma, uncomplicated, R68.89 - Other general symptoms and signs Medications: New amoxicillin-pot clavulanate 875-125 mg 1 tab PO BID 7 days 14 tabs 0RF Coding Level of Care Code Est Pt Level 5 (31402) Diagnoses Asthma, mild intermittent, well-controlled J45.20 Flu-like symptoms R68.89 Abnormal CBC R79.89 Acute bacterial sinusitis J01.90; B96.89
[2024-07-17 10:32] VITALS: BP 114/70; PULSE 129; RESP 12; TEMP 36.6; O2SAT 98; BMI 36.4
== END 2024-07-17 11:08 | disposition home or self-care (01) ==
PROVIDERS: PCP Nurse Practitioner Family; Visit Provider Nurse Practitioner Family
DX: J45.20 Mild intermittent asthma, uncomplicated (principal); R68.89 Other general symptoms and signs; R79.89 Other specified abnormal findings of blood chemistry; J01.90 Acute sinusitis, unspecified; B96.89 Other specified bacterial agents as the cause of diseases classified elsewhere

== ENCOUNTER 2024-07-17 10:06 | Outpatient (REF) | payer OTHER, SELFPAY ==
--- NOTE | ~2024-07-17 | XR_ITS ---
EXAMINATION: XR CHEST 2 VIEWS HISTORY: R68.89 - right lower lobe bronchi and cough COMPARISON: There are no prior studies for comparison. FINDINGS: PA and lateral views of the chest are submitted. The lungs are expanded and clear. There is no pleural effusion, pneumothorax, or pulmonary vascular congestion. The heart is normal in size. The bones are intact. XR/XR chest 2V IMPRESSION: No acute cardiopulmonary abnormality. Electronically signed by: Kendrick Cassidy MD 07/17/2024 12:24 PM EST
[2024-07-17 15:35] LABS: Influenza A PCR NEGATIVE (Negative); Influenza B PCR NEGATIVE (Negative); Resp Syncy Virus RNA Qual PCR NEGATIVE (Negative); SARS COV2 PCR INHOUSE NEGATIVE (Negative)
== END 2024-07-17 10:07 | disposition home or self-care (01) ==
LOC: HO.HMGCX 10:06
PROVIDERS: PCP Nurse Practitioner Family; Visit Provider Nurse Practitioner Family
DX: J45.20 Mild intermittent asthma, uncomplicated (principal); R05.9 Cough, unspecified; R19.7 Diarrhea, unspecified; R11.0 Nausea; R53.82 Chronic fatigue, unspecified; R51.9 Headache, unspecified; R52 Pain, unspecified; R09.81 Nasal congestion; R79.89 Other specified abnormal findings of blood chemistry; J01.90 Acute sinusitis, unspecified; B96.89 Other specified bacterial agents as the cause of diseases classified elsewhere
CPT/HCPCS: 0241U; 71046

== ENCOUNTER → 2024-07-17 12:00 | Outpatient (BNV) | payer OTHER, SELFPAY | PROVIDERS: PCP Nurse Practitioner Family; Visit Provider Radiology Diagnostic Radiology | DX: R68.89 Other general symptoms and signs (principal) | CPT/HCPCS: 71046 ==

== ENCOUNTER 2024-10-15 09:00 | Outpatient (AMB) | payer OTHER, SELFPAY ==
--- NOTE | 2024-10-15 09:08 | MHC.PC.OV ---
Vital Signs 10/15/24 09:12 Height 5 ft 3 in Weight 205 lb 6 oz BMI 36.4 BP 104/70 Blood Pressure Location Lt brachial Position Sitting Respiration 12 Pulse 94 Pulse Source Pulse Oximeter Temp 97.2 F Temp Source Oral Pulse Oximetry (%) 99 Oxygen Delivery Method Room Air Intake Visit Reasons: follow up appt Intake Note: Routine follow up. Patient c/o pelvic px and period is very light. Post Commander Required: No Is last menstrual period known: Yes Last menstrual period: 10/11/24 Allergies banana Allergy (Severe, Verified 10/15/24 09:38) Itching adhesive tape [ADHESIVE TAPE] Allergy (Intermediate, Verified 10/15/24 09:38) RASH detergents Allergy (Severe, Uncoded 10/15/24 09:38) Hives, face swelling Medical tape Allergy (Intermediate, Uncoded 10/15/24 09:38) hives wellbutrin Adverse Reaction (Mild, Uncoded 10/15/24 09:38) shaking Medication List - Last Reconciled 10/15/24 by DEYSI Velasquez- albuterol sulfate 90 mcg/actuation 2 puffs inhalation Q6H PRN citalopram (Celexa) 40 mg PO DAILY fexofenadine (Cornelia Allergy) 180 mg PO DAILY 3 months ipratropium-albuterol 20-100 mcg/actuation (Combivent Respimat) 1 puff inhalation QID montelukast 10 mg PO BEDTIME multivitamin with iron 1 tab PO DAILY omeprazole 40 mg PO DAILY 30 days Tobacco use date assessed: 07/01/24 Dental Screening Dental Screen Date: 07/01/24 HPI HPI Comments History of Present Illness Details 24-year-old female with diverticulitis, MDD, mild intermittent asthma, GERD, PCOS, adhd 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 Would like a preg test - Asthma management includes recent symptoms of severe jitteriness after albuterol use x1 and recognition of GERD as an exacerbating factor. Using combivent PRN only. - GERD is currently well-managed under a brand-name Prilosec regimen, 40mg QD. Wonders if insurance will cover. Generic was not helping. - Allergy management involves the use of Zyrtec; however, persistent and disruptive symptoms have prompted consideration of further diagnostics, including an allergy referral. Switched from cornelia as felt that wasnt helping. Taking singulair, too. - Increased anxiety, linked to her allergies and breathing difficulties, has been reported alongside managed depression with citalopram, though recent panic attacks have occurred. Was referred to counseling but did not follow through on referral. Remains interested. - abnormal cbc, taking MVI with Iron, due for repeat. Physical Exam General: Awake, alert. No apparent distress Eyes: Sclera and conjunctiva clear bilaterally TM intact and clear bilat Nose: Nares patent, turbinates pale and edematous bilat, clear drainage Throat: Moist mucosa membrane, pharynx within normal limits Cardiovascular: Regular rate and rhythm Respiratory: dim throughout w/ ins and exp wheezing, no cough or sob Mood and affect appropriate Results: Prelim as below. Discussion Notes I discussed with the patient the need to further evaluate her menstrual irregularities in light of her PCOS history. An hCG test was agreed upon to exclude as a cause of her symptoms. We also explored the contribution of GERD to her asthma symptoms and affirmed that continuation of Prilosec was beneficial. We discussed her persistent allergies and completed a referral for pulmonology to conduct allergy testing and review her asthma management. The patient expressed openness to referral for allergy evaluation to potentially alleviate her heightened anxiety and allergic reactions. She understands the importance of updating her complete blood count due to recurrent abnormalities, which may necessitate hematology evaluation. Additionally, I recommended buspirone for anxiety management alongside the ongoing citalopram therapy. We also reviewed her current medication regimen and scheduled a refill for medications where needed. I provided anticipatory guidance about the potential need for additional interventions based on allergy testing outcomes and blood count results. Assessment and Plan 1. Polycystic Ovary Syndrome (PCOS) Assessment of the patient's symptoms included conducting an hCG test to rule out early and monitoring menstrual patterns. She is active w [facility]. Advised to schedule appt using the portal. 2. Major Depressive Disorder Citalopram continues as primary therapy, with buspirone added for managing increased anxiety symptoms and recent panic attacks. Recommend 5-10mg QD. NN referral for counseling. 3. Mild Intermittent Asthma Albuterol and CombiVent are continued as primary treatments, with a pulmonology referral made for further evaluation and potential allergy testing. 4. Gastroesophageal Reflux Disease (GERD) Brand-name Prilosec is continued due to successful management and symptom control. She is aware if insurance denies coverage she will need to cont to buy otc. She is agreeable. 5. Seasonal Allergies Addressed through ongoing use of Zyrtec and a referral for comprehensive allergy testing to manage severe symptoms affecting her daily life. Patient Instructions - Continue taking your medications as currently prescribed. - Follow up with pulmonology for allergy testing and asthma management. - Monitor menstrual cycles and report any future irregularities. - If symptoms of anxiety worsen, consult regarding buspirone adjustments. - Stay hydrated and maintain a balanced diet to help manage GERD. - Follow up for blood tests - Use your inhaler as prescribed and report any side effects. - Use the patient portal to communicate promptly with healthcare providers. - RTO 6 weeks to fu on Buspar start, sooner PRN Consent Patient was informed and verbally consented to the use of an ambient scribe for clinic note documentation during this visit. Total time spent caring for the patient today was 50 minutes. This includes time spent before the visit reviewing the chart, time spent during the visit, and time spent after the visit on documentation, reviewing laboratory results, diagnostic imaging, medications, performing a medically necessary evaluation, counseling on diagnoses, care coordination, ordering appropriate tests, ordering appropriate medications, review of tests performed by other providers, reporting test results with the patient, communication with other healthcare providers. [facility] Medical History (Updated 10/15/24 @ 15:37 by Shayy Villalobos, [facility]) Asthma, mild intermittent, well-controlled Cervical cancer screening Chronic GERD Etonogestrel implant for control Family history of breast cancer gene mutation in first degree relative PCOS (polycystic ovarian syndrome) Yeast infection Surgical History (Updated 11/05/23 @ 07:34 by Shayy Villalobos [employer]-) S/P tonsillectomy [place] teeth extracted Family History Mother Breast cancer Diverticulitis Father No problems noted. 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 1. Little interest or pleasure in doing things: more than half the days 2. Feeling down, depressed, or hopeless: more than half the days 3. Trouble falling or staying asleep, or sleeping too much: nearly every day 4. Feeling tired or having little energy: nearly every day 5. Poor appetite or overeating: nearly every day 6. Feeling bad about yourself - or that you are a failure or have let yourself or your family down: several days 7. Trouble concentrating on things, such as reading the newspaper or watching television: several days 8. Moving or speaking so slowly that other people could have noticed. Or the opposite - being so fidgety or restless that you have been moving around a lot more than usual: several days 9. Thoughts that you would be better off or of hurting yourself in some way: not at all Total score: 16 Depression Screening Interpretation: Positive Depression Screening Follow-up: Existing condition and Community Mental Health Worker F/U Depression Screening Done: Yes 35923 - PHQ-9 Billing: Yes Source: Developed by Drs. Kendrick Tyson, Louise Maynard, Corona Patel and colleagues, with an educational taisha from [employer]. Thrive Questionnaire Date Thrive assessed: 10/15/24 I am a: Patient What is your living situation today?: I have a steady place to live Within the past 12 months, did the food you bought not last and you didn't have the money to get more?: Never true Within the past 12 months, did you worry whether your food would run out before you got money to buy more?: Never true Do you have trouble paying for medicines?: No Do you have trouble getting transportation to medical appointments?: No Do you have trouble paying your heating and electricity bill?: No Do you have trouble taking care of your child, family member or friend?: No Do you have trouble with day-to-day activities such as bathing, preparing meals, shopping, managing finances, etc.?: No Are you currently unemployed and looking for a job?: No Are you interested in more education?: No Please select the resources that you would like help with: None Currently or been in a relationship where the following occur: No concerns reported THRIVE Score: 0 AUDIT C Alcohol Use Questionnaire (AUDIT-C) 1. How often do you have a drink containing alcohol?: Monthly or less 2. How many drinks containing alcohol do you have on a typical day when you are drinking?: 1 or 2 3. How often do you have six or more drinks on one occasion?: Never Total Score: 1 Score Reviewed/Action Taken: Yes SHAI-7 AMB Questionnaire SHAI-7 Date SHAI - 7 assessed: 10/15/24 Feeling nervous, anxious, or on edge: 2 = More than half the days Not being able to stop or control worryin = Nearly every day Worrying too much about different things: 3 = Nearly every day Trouble relaxin = Nearly every day Being so restless that it is hard to sit still: 3 = Nearly every day Becoming easily annoyed or irritable: 3 = Nearly every day Feeling afraid as if something awful might happen: 3 = Nearly every day Total SHAI-7 score (0-4 normal; 5-9 mild; 10-14 moderate; 15-21 severe): 20 Source: Developed by Drs. Kendrick Tyson, Louise Maynard, Corona Patel and colleagues, with an educational taisha from [employer]. SHAI-7 Assessment Billing SHAI-7 Assessment Tool: SHAI-7 Assessment 66223 ACT Questionnaire In the past 4 weeks, how much of the time did your asthma keep you from getting as much done at work, school or at home?: A little of the time During the past 4 weeks, how often have you had shortness of breath?: 1-2 times a week During the past 4 weeks, how often did your asthma symptoms wake you up at night or earlier than usual in the morning?: Once a week During the past 4 weeks, how often have you had to use your rescue inhaler or nebulizer medication?: 2-3 times a week How would you rate your asthma control during the past 4 weeks?: Somewhat controlled ACT Interpretation: Negative Score: 17 Physical exam (Primary Care) Vital Signs: Last Vital Signs Temp 97.2 F 10/15/24 09:12 Pulse 94 10/15/24 09:12 Resp 12 10/15/24 09:12 BP 104/70 10/15/24 09:12 Pulse Ox 99 10/15/24 09:12 Oxygen Delivery Method Room Air 10/15/24 09:12 BMI result Body Mass Index 36.4 BMI Assessment/Plan discussion: High BMI High, discussed plan: lifestyle Tobacco/Smoking Status: Tobacco use Status Tobacco use date assessed 07/01/24 10/15/24 09:13 Patient Tobacco Use Status Never used Tobacco 10/15/24 09:13 e-Cigarette/Vaping Use Never Used 10/15/24 09:13 PHQ-9: PHQ-9 Score PHQ-9: Total score 16 10/15/24 09:53 Depression Screening Interpretation: Positive Depression Screening Follow-up: Existing condition and Community Mental Health Worker F/U Thrive Assessment: Date of Thrive Assessment Date Thrive assessed 10/15/24 10/15/24 09:13 Currently or been in a relationship where the following occur: No concerns reported Results Reviewed Results Reviewed: Laboratory Result Units Range Interpretation Provider Comments White Blood Count 9.3 X10*3/uL (4.8-10.8) Red Blood Count 4.27 X10*6/uL (4.20-5.50) Hemoglobin 10.9 g/dl (12.0-16.0) Low Hematocrit 34.3 % (37.0-47.0) Low Mean Corpuscular Volume 80.3 fL (80.0-98.0) Mean Corpuscular Hemoglobin 25.5 pg (27.0-33.0) Low Mean Corpuscular Hemoglobin Concent 31.8 g/dl (31.0-35.0) Red Cell Distribution Width 16.3 % (11.0-16.0) High Platelet Count 475 X10*3/uL (160-400) High Mean Platelet Volume 9.0 fL (9.4-12.3) Low Nucleated RBC Absolute Count (auto) 0.000 X10*3/uL (0.0-0.012) Nucleated Red Blood Cells % (auto) 0.0 /100WBC (0.0-0.2) Neutrophils % (Manual) Pending Absolute Neutrophils (Manual) Pending Platelet Estimate Pending Platelet Morphology Comment Pending Red Blood Cell Morphology Pending Iron Level 78 mcg/dL (30-160) Total Iron Binding Capacity 322 mcg/dL (228-428) Percent Iron Saturation 24 % (15-50) Unsaturated Iron Binding 244 ug/dL Ferritin 15 ng/mL (10-122) Vitamin B12 Level 420 pg/mL (200-900) Folate 6.2 ng/mL (> or = 4.0) Beta HCG, Quantitative < 2 mIU/mL Coding Level of Care Code Est Pt Level 5 (99260) Complex EM visit Add On G2211 Diagnoses Gastroesophageal reflux disease with esophagitis without hemorrhage K21.00 Esophagitis bleeding: without hemorrhage Esophagitis presence: with esophagitis Seasonal allergies J30.2 Severe obesity (BMI 35.0-39.9) with comorbidity E66.01 Asthma, mild intermittent, well-controlled J45.20 Nasal polyps J33.9 Anemia, unspecified type D64.9 Anemia type: unspecified type Abnormal CBC R79.89 Secondary oligomenorrhea N91.4 Oligomenorrhea type: secondary PCOS (polycystic ovarian syndrome) E28.2 SHAI (generalized anxiety disorder) F41.1 Mild episode of recurrent major depressive disorder F33.0 Major depression episode severity: mild Additional Codes Asthma Control Questionnaire - ACT Interpretation: Negative ([id number]) SHAI-7 Assessment Billing - SHAI-7 Assessment Tool: SHAI-7 Assessment 04962 ([id number]) PHQ-9 - 27033 - PHQ-9 Billing: Yes ([id number]) Assessment & Plan Assessment & Plan (1) GERD (gastroesophageal reflux disease): Code(s): K21.9 - Gastro-esophageal reflux disease without esophagitis Category: Medical Qualifiers: Esophagitis bleeding: without hemorrhage Esophagitis presence: with esophagitis Qualified Code(s): K21.00 - Gastro-esophageal reflux disease with esophagitis, without bleeding (2) Seasonal allergies: Code(s): J30.2 - Other seasonal allergic rhinitis Category: Medical (3) Severe obesity (BMI 35.0-39.9) with comorbidity: Code(s): E66.01 - Morbid (severe) obesity due to excess calories Category: Medical (4) Asthma, mild intermittent, well-controlled: Comment: albuterol & Combivent 1 puff 4 times per day as needed. Advised that she can use this as both a maintenance and a rescue inhaler. Code(s): J45.20 - Mild intermittent asthma, uncomplicated Category: Medical (5) Nasal polyps: Code(s): J33.9 - Nasal polyp, unspecified Category: Medical (6) Anemia: Code(s): D64.9 - Anemia, unspecified Category: Medical Qualifiers: Anemia type: unspecified type Qualified Code(s): D64.9 - Anemia, unspecified (7) Abnormal CBC: Code(s): R79.89 - Other specified abnormal findings of blood chemistry Category: Medical (8) Oligomenorrhea: Comment: With hirsutism Code(s): N91.5 - Oligomenorrhea, unspecified Category: Medical Qualifiers: Oligomenorrhea type: secondary Qualified Code(s): N91.4 - Secondary oligomenorrhea (9) PCOS (polycystic ovarian syndrome): Code(s): E28.2 - Polycystic ovarian syndrome Category: Medical (10) SHAI (generalized anxiety disorder): Code(s): F41.1 - Generalized anxiety disorder Category: Medical (11) MDD (major depressive disorder), recurrent episode: Code(s): F33.9 - Major depressive disorder, recurrent, unspecified Category: Medical Qualifiers: Major depression episode severity: mild Qualified Code(s): F33.0 - Major depressive disorder, recurrent, mild Plan . Orders: Orders Vitamin B12 and Folate Today D64.9 - Anemia, unspecified, R79.89 - Other specified abnormal findings of blood chemistry Complete Blood Count Man Dif Today D64.9 - Anemia, unspecified, R79.89 - Other specified abnormal findings of blood chemistry HCG Quantitative Today E28.2 - Polycystic ovarian syndrome, N91.4 - Secondary oligomenorrhea Ferritin Today D64.9 - Anemia, unspecified, R79.89 - Other specified abnormal findings of blood chemistry IRON PROFILE Today D64.9 - Anemia, unspecified, R79.89 - Other specified abnormal findings of blood chemistry Referrals Pulmonology Referral J30.2 - Other seasonal allergic rhinitis, J33.9 - Nasal polyp, unspecified, J45.20 - Mild intermittent asthma, uncomplicated Nurse Navigator Referral F33.0 - Major depressive disorder, recurrent, mild, F41.1 - Generalized anxiety disorder Medications: New cetirizine (Zyrtec) 10 mg PO DAILY 90 caps 0RF Prilosec OTC (omeprazole magnesium) 40 mg (2 x 20 mg) PO DAILY 180 tabs 2RF NS buspirone 10 mg PO DAILY 30 tabs 1RF Refilled citalopram (Celexa) 40 mg PO DAILY 90 tabs 1RF ipratropium-albuterol 20-100 mcg/actuation (Combivent Respimat) space evenly during waking hours 1 puff inhalation QID 4 grams 4RF Discontinued fexofenadine (Cornelia Allergy) Discontinued Reason: Patient Completed Course 180 mg PO DAILY 3 months 90 tabs 2RF J30.2 - Other seasonal allergic rhinitis omeprazole Discontinued Reason: Patient Completed Course 40 mg PO DAILY 30 days 30 caps 3RF
[2024-10-15 09:12] VITALS: BP 104/70; PULSE 94; RESP 12; TEMP 36.2; O2SAT 99; BMI 36.4
--- OUTSIDE RECORDS SUMMARY | 2024-10-15 09:40 | XMS_ITS | Patient Health Record ---
Author Organization [facility] Address [address] [address] Care Team Providers Care Slicing Machine Tender Name Role Phone IAN TARIQ Unavailable [phone] Reason For Referral No Information Plan Of Treatment No Information Insurance Providers Payer Name Payer Address Payer Phone Subscriber Number Group Number Insured Name Patient Relationship to Insured Coverage Start Date Coverage End Date [facility] [address] [address] [place] [address] [id number] YAMEL SULLIVAN Self - patient is the insured
== END 2024-10-15 10:04 | disposition home or self-care (01) ==
LOC: HO.HMCFM 09:01
PROVIDERS: PCP Nurse Practitioner Family; Visit Provider Nurse Practitioner Family
DX: K21.00 Gastro-esophageal reflux disease with esophagitis, without bleeding (principal); J30.2 Other seasonal allergic rhinitis; E66.01 Morbid (severe) obesity due to excess calories; Z68.36 Body mass index [BMI] 36.0-36.9, adult; J45.20 Mild intermittent asthma, uncomplicated; J33.9 Nasal polyp, unspecified; D64.9 Anemia, unspecified; R79.89 Other specified abnormal findings of blood chemistry; N91.4 Secondary oligomenorrhea; E28.2 Polycystic ovarian syndrome; F41.1 Generalized anxiety disorder; F33.0 Major depressive disorder, recurrent, mild

== ENCOUNTER → 2024-10-15 09:00 | Outpatient (BNVA) | payer OTHER, SELFPAY | PROVIDERS: PCP Nurse Practitioner Family; Visit Provider Nurse Practitioner Family | DX: K21.00 Gastro-esophageal reflux disease with esophagitis, without bleeding (principal); J30.2 Other seasonal allergic rhinitis; E66.01 Morbid (severe) obesity due to excess calories; J45.20 Mild intermittent asthma, uncomplicated; J33.9 Nasal polyp, unspecified; D64.9 Anemia, unspecified; R79.89 Other specified abnormal findings of blood chemistry; N91.4 Secondary oligomenorrhea; E28.2 Polycystic ovarian syndrome; F41.1 Generalized anxiety disorder; F33.0 Major depressive disorder, recurrent, mild | CPT/HCPCS: 96127; 96160 ==

== ENCOUNTER 2024-10-15 10:16 | Outpatient (REF) | payer OTHER, SELFPAY ==
[2024-10-15 11:30] LABS: Baso%MD 0.5 %; Eos%MD 2.8 %; Hematocrit 34.3 % (37.0-47.0); Hemoglobin 10.9 g/dl (12.0-16.0); IG%MD 0.4 %; Lymph%MD 18.9 %; Mean Corpuscular HGB Conc 31.8 g/dl (31.0-35.0); Mean Corpuscular Hemoglobin 25.5 pg (27.0-33.0); Mean Corpuscular Volume 80.3 fL (80.0-98.0); Mono%MD 6.8 %; Neut%MD 70.6 %; Platelet Count 475 X10*3/uL (160-400); Red Blood Count 4.27 X10*6/uL (4.20-5.50); Red Cell Distribution Width 16.3 % (11.0-16.0); White Blood Count 9.3 X10*3/uL (4.8-10.8)
[2024-10-15 12:06] LABS: Iron 78 mcg/dL (30-160); Percent Iron Saturation 24 % (15-50); Total Iron Binding Capacity 322 mcg/dL (228-428); Unsaturated Iron Binding 244 ug/dL
[2024-10-15 12:22] LABS: Ferritin 15 ng/mL (10-122); HCG Quantitative < 2 mIU/mL
[2024-10-15 12:36] LABS: Folate 6.2 ng/mL (> or = 4.0); Vitamin B12 420 pg/mL (200-900)
[2024-10-15 16:11] LABS: Atypical Lymph Absolute Manual 0.1 x10*3/uL; Atypical Lymphs Percent Manual 1 % (0-6); Eosinophils Absolute Manual 0.6 X10*3/uL (0.0-0.4); Eosinophils Percent Manual 6 % (0-4); Lymphocytes Absolute Manual 3.3 X10*3/uL (1.2-4.9); Lymphocytes Percent Manual 36 % (20-40); Monocytes Absolute Manual 0.3 X10*3/uL (0.1-1.2); Monocytes Percent Manual 3 % (2-11); Neutrophils Percent Manual 54 % (45-73)
[2024-10-15 16:12] LABS: RBC Morphology NORMAL
[2024-10-15 16:13] LABS: Band Neutrophils Percent 0 % (3-5); Platelet Estimate NORMAL (NORMAL); Platelet Morphology Comment NORMAL
== END 2024-10-15 10:17 | disposition home or self-care (01) ==
LOC: HO.WFDLDS 10:16
PROVIDERS: Visit Provider Nurse Practitioner Family
DX: D64.9 Anemia, unspecified (principal); R79.89 Other specified abnormal findings of blood chemistry; E28.2 Polycystic ovarian syndrome; N91.4 Secondary oligomenorrhea
CPT/HCPCS: 36415; 82607; 82728; 82746; 83540; 84702; 85007; 85027

== ENCOUNTER 2024-11-04 09:08 | Outpatient (REF) | payer OTHER, SELFPAY | END 2024-11-04 09:09 | disposition home or self-care (01) | LOC: HO.LAB 09:08 | PROVIDERS: PCP Nurse Practitioner Family | DX: Z13.89 Encounter for screening for other disorder (principal) ==

== ENCOUNTER 2024-11-04 09:08 | Outpatient (AMB) | payer OTHER, SELFPAY ==
[2024-11-04 09:30] VITALS: BP 122/80; PULSE 112; TEMP 36.7; O2SAT 98; BMI 36.8
--- NOTE | 2024-11-04 09:30 | MHC.OFFWIV ---
Intake Vital Signs 11/04/24 09:30 Height 5 ft 3 in Weight 208 lb BMI 36.8 BP 122/80 Blood Pressure Location Lt brachial Position Sitting Pulse 112 H Pulse Source Pulse Oximeter Temp 98.0 F Temp Source Oral Pulse Oximetry (%) 98 Oxygen Delivery Method Room Air Intake Visit Reasons: EP-sinus, congestion, cough, body ache Intake Note: Patient here for burning sinus pain, congestion, body aches and cough that started Saturday. Patient Tobacco Use Status: Never used Tobacco Allergies banana Allergy (Severe, Verified 11/04/24 09:44) Itching adhesive tape [ADHESIVE TAPE] Allergy (Intermediate, Verified 11/04/24 09:44) RASH detergents Allergy (Severe, Uncoded 11/04/24 09:44) Hives, face swelling Medical tape Allergy (Intermediate, Uncoded 11/04/24 09:44) hives wellbutrin Adverse Reaction (Mild, Uncoded 11/04/24 09:44) shaking Do you need a note to return to daycare/school/sports/work: No HPI HPI Comments History of Present Illness Details History - The patient is a 24-year-old female with past med hx of asthma, GERD and PCOS presenting with symptoms consistent with 5 days of congestion, body aches, fatigue, chills, and low-grade fevers peaking at 99.5?F. - Onset of cough occurred yesterday, exacerbated by increased postnasal drip and throat irritation. - Asthma, although stable, requires more frequent use of inhalers such as albuterol and Combivent during the illness. - The patient reports sinus pressure with a burning sensation, headaches, and minor non-aural ear discomfort, mostly worsening at night. - Symptom management includes ibuprofen and daily Zyrtec intake. Physical Exam General: Cooperative, healthy appearing, comfortable and no acute distress Orientation/consciousness: Patient oriented x3 Limitations: No limitations Head: Normal to inspection Ears: Hearing grossly normal bilaterally, external ears normal and TM's normal bilaterally Nose: Normal external nose present, Normal nares present and No nasal discharge present Face and sinus: Normal facial exam and sinuses tender Mouth: Normal oral and palatal mucosa present and moist mucous membranes Throat: Yes tonsils normal, Yes uvula midline. Posterior oropharynx erythema Eyes: Appearance normal, both eyes and all related structures Neck: Normal visual inspection Respiratory: Clear to auscultation bilaterally. Normal respiratory effort, able to speak in complete sentences, Actively coughing, no respiratory distress, not tachypneic, no tripod positioning and no use of accessory muscles Cardiovascular: Regular rate and rhythm. Normal S1 and S2 Skin: No rashes or lesions noted Neuro: Patient oriented x3 Extremities: Normal to inspection and Yes no clubbing, cyanosis or edema PFSH Medical History (Updated 11/04/24 @ 10:12 by Ann Brian PA-C) Family history of breast cancer gene mutation in first degree relative PCOS (polycystic ovarian syndrome) Yeast infection Etonogestrel implant for control Cervical cancer screening Asthma, mild intermittent, well-controlled Chronic GERD Surgical History (Updated 11/05/23 @ 07:34 by Shayy Villalobos, [facility]) S/P tonsillectomy [place] teeth extracted Family History Mother Breast cancer Diverticulitis Father No problems noted. 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 Current occupational exposures/hazards: No Sexual orientation: Straight/Heterosexual Gender identity: Female Cognitive needs: No Hearing needs: No Vision needs: Yes Female Reproductive History Menstrual Age of Menarche: 9 Review of Systems Const All systems reviewed & are unremarkable except as noted in HPI and below Physical Exam Vital Signs: Last Vital Signs Temp 98.0 F 11/04/24 09:30 Pulse 112 H 11/04/24 09:30 BP 122/80 11/04/24 09:30 Pulse Ox 98 11/04/24 09:30 Oxygen Delivery Method Room Air 11/04/24 09:30 BMI result Body Mass Index 36.8 Assessment & Plan Assessment & Plan (1) Sinus infection: Code(s): J32.9 - Chronic sinusitis, unspecified Qualifiers: Sinusitis location: unspecified location Chronicity: subacute Qualified Code(s): J01.90 - Acute sinusitis, unspecified Plan: VSS, pt well appearing and PE remarkable for sinus tenderness. I advised the patient that her symptoms suggest a viral acute sinusitis, which typically does not require antibiotics. She should continue using her asthma inhalers. I recommended starting Flonase nasal spray to ease sinus congestion and explained the correct application technique. An oral steroid was prescribed to help alleviate sinus pressure and burning, with instructions to take it in the morning, risks and benefits reviewed. Additionally, I suggested taking Benadryl at night along with her regular Zyrtec to help manage nighttime symptoms. If her symptoms persist beyond 10-12 days without improvement, she should return for further evaluation. Patient was informed and verbally consented to the use of an ambient scribe for clinic note documentation during this visit Medications: New prednisone 40 mg (2 x 20 mg) PO QAM 10 tabs 0RF Coding Level of Care Code Est Pt Level 3 (50567) Diagnoses Subacute sinusitis, unspecified location J01.90 Sinusitis location: unspecified location Chronicity: subacute
--- OUTSIDE RECORDS SUMMARY | 2024-11-04 10:22 | XMS_ITS | Patient Health Record ---
Author Organization [facility] Address [address] [address] Care Team Providers Care Fiberglasser Name Role Phone IAN TARIQ Unavailable [phone] Reason For Referral No Information Plan Of Treatment No Information Insurance Providers Payer Name Payer Address Payer Phone Subscriber Number Group Number Insured Name Patient Relationship to Insured Coverage Start Date Coverage End Date [facility] [address] [address] [place] [address] [id number] YAMEL SULLIVAN Self - patient is the insured
== END 2024-11-04 10:18 | disposition home or self-care (01) ==
PROVIDERS: PCP Nurse Practitioner Family; Visit Provider Physician Assistant
DX: J01.90 Acute sinusitis, unspecified (principal)

== ENCOUNTER 2024-11-18 13:14 | Outpatient (AMB) | payer OTHER, SELFPAY ==
--- NOTE | 2024-11-18 13:16 | A.OFFVIS_ITS ---
Vital Signs 11/18/24 13:22 Height 5 ft 3 in Weight 208 lb BMI 36.8 BP 134/76 Blood Pressure Location Rt brachial Position Sitting Pulse 96 Pulse Source Pulse Oximeter Pulse Oximetry (%) 99 Oxygen Delivery Method Room Air Intake Visit Reasons: Gerd Intake Note: Established patient for mgmt of GERD. Re-est. [facility] 2023. CC; C.O. reflux exacerbation and multiple, persistent episodes over the last few weeks. Pt reports episodes typically lasting days at a time and including sx such as dysphagia, chest pain, bloating, and severe esophageal burning sensation. Time Study Analyst Required: No Accompanied by: Self / Same As Patient Allergies banana Allergy (Severe, Verified 11/04/24 09:44) Itching adhesive tape [ADHESIVE TAPE] Allergy (Intermediate, Verified 11/04/24 09:44) RASH detergents Allergy (Severe, Uncoded 11/04/24 09:44) Hives, face swelling Medical tape Allergy (Intermediate, Uncoded 11/04/24 09:44) hives wellbutrin Adverse Reaction (Mild, Uncoded 11/04/24 09:44) shaking HPI HPI Gerd: Details: Assessment & Plan (1) Upper abdominal pain: Code(s): R10.10 - Upper abdominal pain, unspecified (2) GERD (gastroesophageal reflux disease): Code(s): K21.9 - Gastro-esophageal reflux disease without esophagitis Plan THIS PATIENT HAS BEEN LOST TO FOLLOW-UP SINCE 08/2021 She has had a lot of stress and a difficult time the last couple of years as her mother was diagnosed with breast cancer and recently . This explains the lapse in follow-up. She went back to omeprazole from pantoprazole because she found it worked better. However, she recently had to escalate the dose from 20-40 mg. This is working somewhat well but she still has breakthrough with certain foods par ticularly acid he foods or high fat foods. An odd thing she notices that if she skips even 1 dose she seems to have very bilious diarrhea. This may point to somebody who IS AN over bile produce her and she may benefit from a light dose of a bile binding agent such as cholestyramine. I think we should reinstate the HIDA scan as I really question whether her gallbladder is part of the differential diagnosis even though she has had no gallstones she could have some biliary dyskinesia. She is also still struggling with PCOS that has not yet controlled. She has been having odd desires to smell things like gasoline and must he smells and she is worried about peak. She has not had any labs in over a year because she had a lapse in primary care provider so I will order some basic labs as well as a thyroid because she is complaining of severe fatigue. Return office visit in 4 weeks Orders: Orders NM hepatobiliary w pharm 08/30/23 R10.10 - Upper abdominal pain, unspecified Comprehensive Met. Panel 08/30/23 R10.10 - Upper abdominal pain, unspecified Complete Blood Count Auto Diff 08/30/23 R10.10 - Upper abdominal pain, unspecified TSH reflex Free T4 08/30/23 R10.10 - Upper abdominal pain, unspecified Medications: New omeprazole 40 mg PO DAILY 30 days 30 caps 3RF cholestyramine (with sugar) 4 gram administer w/meal; avoid other meds within 1hr before or 4-6hr after dose 4 grams PO DAILY 60 ea 3RF K21.9 - Gastro-esophageal reflux disease without esophagitis, R10.10 - Upper abdominal pain, unspecified LABS: NOT OBTAINED HIDA SCAN CORRESPONDENCE On 10/22/23 @ 13:08 Beba Braxton Wrote To Lackey,September Patient no showed for HIDA scan on 09/22 and later on 10/20.She had labs done. Follow up tomorrow. TODAY'S VISIT She is currently on omeprazole 40 mg daily and in August of 2023 I tried prescribing cholestyramine. She has been lost to follow-up since 08/2023. Apparently there was a lapse in her insurance and this is what caused the test/labs not to be done. This also affected her ability to follow-up. Her GERD is much worse, and her bloating is very bad with everything, like I'm 9 mos ! She has trouble with angela, sauces, tomatoes, high fat content/fried, fast foods, tacos even if home made (seasoning), pork. Water and soda/citrus juices bother her; she is limiting her coffee to 1 day. She tolerates most veggies, some fruit, peeled apples, oatmilk, chicken and lean beef, turkey. She developed a new banana allergy about a year ago with face swelling. She has been having tongue irritation like canker sores but she can't see them. She takes a MVI daily. She has a recent referral to hematology and pulm for her asthma and for thrombophilia and anemia. Her asthma is triggered by her GERD. She has had intermittent episodes of dysphagia with food sticking just under the sternal notch. This is with dry food not liquids. She has had prior episodes of candido oral but not recently. SHe is moving her bowels well. She is taking name brand Prilosec as this works better for her, she is taking a total of 60mg/day 1 qam 20mg and 2 qhs. She eats a lot of yogurt and a probiotic cottage cheese, but in celina past she got a yeast infection after taking probiotics. Her asthma is generally well controlled and she denies any cardiac problems. There are no prior problems with anesthesia or sedation. There are no infectious disease problems. At this point I will leave it up to her to call when she gets some for appointments booked so that we can schedule the follow-up to best coordinate with when these results will be available. [facility] Medical History (Updated 11/18/24 @ 14:04 by NOE New) Nasal polyps Diverticulitis of sigmoid colon Family history of breast cancer gene mutation in first degree relative Tetanus, diphtheria, and acellular pertussis (Tdap) vaccination declined PCOS (polycystic ovarian syndrome) Yeast infection Etonogestrel implant for control Cervical cancer screening Asthma, mild intermittent, well-controlled Chronic GERD Surgical History (Updated 11/05/23 @ 07:34 by Shayy Villalobos, [facility]-) S/P tonsillectomy [place] teeth extracted Family History Mother Breast cancer Diverticulitis Father No problems noted. 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 Current occupational exposures/hazards: No Sexual orientation: Straight/Heterosexual Gender identity: Female Cognitive needs: No Hearing needs: No Vision needs: Yes Female Reproductive History Menstrual Age of Menarche: 9 Review of Systems Const Reports fatigue, Denies fever(s), Denies night sweats, Denies poor appetite and Denies weight loss Eyes Details: glasses Reports requires corrective lenses ENT Reports Normal hearing present, Denies dental pain, Denies dysphagia, Denies hearing loss, Denies mouth pain, Denies odynophagia, Denies throat swelling, Denies tongue swelling and Reports other (Dentition adequate) Card Reports no additional complaints Resp Reports no additional complaints GI Details: Denies abdominal pain, Denies melena, Reports bloating, Denies hematochezia, Denies constipation, Denies GI cramping, Denies dysphagia, Denies excessive flatus, Denies early satiety, Reports dyspepsia, Reports heartburn, Denies diarrhea, Denies nausea, Denies odynophagia, Denies vomiting and Denies hematemesis Musc Reports back pain and Reports myalgias Skin/Breast Denies pruritus, Denies lesions, Denies rash and Denies jaundice Neuro Reports Normal hearing present and Denies Abnormal speech present Endo Reports fatigue Aller/Immun Denies throat swelling and Denies tongue swelling Physical Exam Vital Signs: Last Vital Signs Pulse 96 11/18/24 13:22 BP 134/76 11/18/24 13:22 Pulse Ox 99 11/18/24 13:22 Oxygen Delivery Method Room Air 11/18/24 13:22 BMI result Body Mass Index 36.8 Const General: cooperative, no acute distress, well developed and well groomed Nutritional Appearance: well nourished and obese Orientation/consciousness: oriented to person, oriented to place and oriented to time Limitations: No language barrier HEENT Head: Yes normocephalic and Yes atraumatic Eyes General: appearance normal, both eyes and all related structures Pupils: Equal, round and reactive pupils present Neck Neck: Yes normal visual inspection and Yes no lymphadenopathy Thyroid: Thyroid normal Resp Effort & Inspection: normal respiratory effort and able to speak in complete sentences Auscultation: clear to auscultation bilaterally Cardio Rate: regular rate Rhythm: regular rhythm Heart sounds: Normal, physiologic split S2 sound present Peripheral pulses: radial pulses present and posterior tibial pulses present GI Inspection: Yes distended, Yes Abdominal panniculus present and Yes obesity Palpation (GI): Soft to palpation, nontender, no guarding, not rigid and No hepatosplenomegaly present Percussion: Yes normal to percussion Auscultation: normal bowel sounds Rectal Exam - Female: deferred Skin General skin exam: no rashes or lesions noted, turgor normal, skin not dry, no jaundice, No spider nevi and no striae Rashes: no rashes Nails: normal Neuro General: oriented to person, oriented to place and oriented to time Cranial nerves: Yes Equal, round and reactive pupils present and Yes Normal hearing present Speech: No Abnormal speech present Extrem General: Yes normal to inspection, No clubbing, No cyanosis and No edema Psych Appearance: grossly normal and well kempt Mental Status: mental status grossly normal Speech and movement: Normal speech and movement present Affect: normal affect Attitude: cooperative Thought process: Normal thought process present and not confabulating Thought content: Normal thought content present Insight: Fair insight present (Psych) Judgement: Fair judgement present (Psych) Assessment & Plan Assessment & Plan (1) Upper abdominal pain: Code(s): R10.10 - Upper abdominal pain, unspecified Category: Medical (2) Dysphagia: Code(s): R13.10 - Dysphagia, unspecified Category: Medical (3) Abdominal bloating: Code(s): R14.0 - Abdominal distension (gaseous) Category: Medical (4) GERD (gastroesophageal reflux disease): Code(s): K21.9 - Gastro-esophageal reflux disease without esophagitis Category: Medical Qualifiers: Esophagitis bleeding: without hemorrhage Esophagitis presence: with esophagitis Qualified Code(s): K21.00 - Gastro-esophageal reflux disease with esophagitis, without bleeding (5) Severe obesity (BMI 35.0-39.9) with comorbidity: Code(s): E66.01 - Morbid (severe) obesity due to excess calories Category: Medical Plan She is currently on omeprazole 40 mg daily and in August of 2023 I tried prescribing cholestyramine. She has been lost to follow-up since 08/2023. Apparently there was a lapse in her insurance and this is what caused the test/labs not to be done. This also affected her ability to follow-up. Her GERD is much worse, and her bloating is very bad with everything, like I'm 9 mos ! She has trouble with angela, sauces, tomatoes, high fat content/fried, fast foods, tacos even if home made (seasoning), pork. Water and soda/citrus juices bother her; she is limiting her coffee to 1 day. She tolerates most veggies, some fruit, peeled apples, oatmilk, chicken and lean beef, turkey. She developed a new banana allergy about a year ago with face swelling. She has been having tongue irritation like canker sores but she can't see them. She takes a MVI daily. She has a recent referral to hematology and pulm for her asthma and for thrombophilia and anemia. Her asthma is triggered by her GERD. She has had intermittent episodes of dysphagia with food sticking just under the sternal notch. This is with dry food not liquids. She has had prior episodes of candido oral but not recently. SHe is moving her bowels well. She is taking name brand Prilosec as this works better for her, she is taking a total of 60mg/day 1 qam 20mg and 2 qhs. She eats a lot of yogurt and a probiotic cottage cheese, but in celina past she got a yeast infection after taking probiotics. Her asthma is generally well controlled and she denies any cardiac problems. There are no prior problems with anesthesia or sedation. There are no infectious disease problems. At this point I will leave it up to her to call when she gets some for appointments booked so that we can schedule the follow-up to best coordinate with when these results will be available Orders: Orders TSH reflex Free T4 Today K21.00 - Gastro-esophageal reflux disease with esophagitis, without bleeding, R10.10 - Upper abdominal pain, unspecified NM hepatobiliary w pharm Today K21.00 - Gastro-esophageal reflux disease with esophagitis, without bleeding, R10.10 - Upper abdominal pain, unspecified EGD - GI Use Only Today R13.10 - Dysphagia, unspecified Comprehensive Met. Panel Today K21.00 - Gastro-esophageal reflux disease with esophagitis, without bleeding, R10.10 - Upper abdominal pain, unspecified FL barium swallow Today K21.00 - Gastro-esophageal reflux disease with esophagitis, without bleeding, R10.10 - Upper abdominal pain, unspecified Medications: New simethicone (Gas Relief (simethicone)) 125 mg PO BID-QID 90 tabs 6RF abdominal distention R14.0 - Abdominal distension (gaseous) Changed From Prilosec OTC (omeprazole magnesium) 40 mg (2 x 20 mg) PO DAILY 180 tabs 2RF NS K21.00 - Gastro-esophageal reflux disease with esophagitis, without bleeding, R13.10 - Dysphagia, unspecified To Prilosec OTC (omeprazole magnesium) 40 mg (2 x 20 mg) PO BID 180 tabs 2RF NS K21.00 - Gastro-esophageal reflux disease with esophagitis, without bleeding, R13.10 - Dysphagia, unspecified Coding Level of Care Code Est Pt Level 4 (07290) Diagnoses Upper abdominal pain R10.10 Dysphagia R13.10 Abdominal bloating R14.0 Gastroesophageal reflux disease with esophagitis without hemorrhage K21.00 Esophagitis bleeding: without hemorrhage Esophagitis presence: with esophagitis Severe obesity (BMI 35.0-39.9) with comorbidity E66.01 Time Spent (min) 40
[2024-11-18 13:22] VITALS: BP 134/76; PULSE 96; O2SAT 99; BMI 36.8
--- OUTSIDE RECORDS SUMMARY | 2024-11-18 13:32 | XMS_ITS | Patient Health Record ---
Author Organization [facility] Address [address] [address] Care Team Providers Care White Metal Caster Name Role Phone IAN TARIQ Unavailable [phone] Reason For Referral No Information Plan Of Treatment No Information Insurance Providers Payer Name Payer Address Payer Phone Subscriber Number Group Number Insured Name Patient Relationship to Insured Coverage Start Date Coverage End Date [facility] [address] [address] [place] [address] [id number] YAMEL SULLIVAN Self - patient is the insured
== END 2024-11-18 14:35 | disposition home or self-care (01) ==
PROVIDERS: PCP Nurse Practitioner Family; Visit Provider Nurse Practitioner
DX: R10.10 Upper abdominal pain, unspecified (principal); R13.10 Dysphagia, unspecified; R14.0 Abdominal distension (gaseous); K21.00 Gastro-esophageal reflux disease with esophagitis, without bleeding; E66.01 Morbid (severe) obesity due to excess calories
CPT/HCPCS: 99214

== ENCOUNTER → 2025-01-11 13:18 | Outpatient (BNV) | payer OTHER, SELFPAY | PROVIDERS: Visit Provider Nurse Practitioner Family | DX: D50.9 Iron deficiency anemia, unspecified (principal) | CPT/HCPCS: 99204 ==

== ENCOUNTER 2025-01-21 16:33 | Outpatient (AMB) | payer OTHER, SELFPAY ==
--- NOTE | 2025-01-21 16:04 | MHC.PC.OV ---
Intake Visit Reasons: ER F/U Due to very high heart rate. Allergies banana Allergy (Severe, Verified 01/21/25 16:17) Itching adhesive tape (ADHESIVE TAPE) Allergy (Intermediate, Verified 01/21/25 16:17) RASH detergents Allergy (Severe, Uncoded 11/04/24 09:44) Hives, face swelling Medical tape Allergy (Intermediate, Uncoded 11/04/24 09:44) hives wellbutrin Adverse Reaction (Mild, Uncoded 11/04/24 09:44) shaking Medication List - Last Reconciled 01/21/25 by Shayy Villalobos, INSTRUMENT MAKER AND REPAIRER- albuterol sulfate 90 mcg/actuation 2 puffs inhalation Q6H PRN cetirizine (Zyrtec) 10 mg PO DAILY citalopram (Celexa) 40 mg PO DAILY ipratropium-albuterol 20-100 mcg/actuation (Combivent Respimat) 1 puff inhalation QID montelukast 10 mg PO BEDTIME multivitamin with iron 1 tab PO DAILY Prilosec OTC (omeprazole magnesium) 40 mg (2 x 20 mg) PO BID NS simethicone (Gas Relief (simethicone)) 125 mg PO BID-QID Tobacco use date assessed: 07/01/24 Dental Screening Dental Screen Date: 07/01/24 HPI HPI Comments History of Present Illness Details 24-year-old female with diverticulitis, MDD, mild intermittent asthma, GERD, PCOS, adhd 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 Status post tonsillectomy Family history Breast cancer with gene mutation first-degree relative - Mom Jun 2023 Health maintenance Pap smear unsure, active w/ [employer] Tdap declined Flu declined Specialists GI Endocrinology [employer] Pulm Counseling heme consult 12/2024 reviewed; genetic testing, trial Iron and pursue further workup PRN 6 weeks fu History of Present Illness - The patient is a 24-year-old female presenting for Hos Dis follow up [facility] ED 01/20/25 I do NOT have the records other than labs, CXR and 1 EKG with vent rate 146bpm; requested but unavail. Therefore info coming from the patient: CC: tachycardia and elevated heart rate. - Initial heart rate reported at 160 BPM with persistent elevated rates throughout the day. - Attended the emergency department via ambulance due to sustained high heart rate and blood pressure of 150/105 mmHg. - Treatment included unidentified heart rate-reducing medication via IV w/ short lived relief . - ER monitoring saw heart rate stabilize to 95 BPM, but transiently increased upon standing to 140 bpm - Discharged without medications and advised to fu with PCP - She has asthma which is well controlled; last inhaler use November 2024. Assoc sx w/ tachycardia include headache, breathlessness and fatigue. Denies chest pain or syncope. Review of Systems - Cardiovascular: Reports tachycardia, elevated heart rate. - Respiratory: Denies frequent albuterol use; occasional wheezing. - General: Reports feeling uneasy, drowning sensation noted. - Gastrointestinal: Denies nausea, vomiting. Results - Labs: WNL - EKG: VENT RATE 146 BPM (i dont know if this was before or after meds) - Chest X-ray:WNL Assessment and Plan 1. Tachycardia Sounds like SVT. I do not have the dc summary Unsure why she was dc home w/o meds She remains sx with HR in the 140's therefore i am going to send in metoprolol 25mg and place a stat referral to [facility] I provided her w/ the contact info for their office and asked my staff to ensure she gets a stat carole Monitor BP/P at home she should perform valsava prn , avoid stimulants to include excessive JERRICA use and seek ED care PRN requesting FMLA - asked her to send via portal for me to complete Patient was given time to ask questions. All questions were answered to their satisfaction. Telehealth Attestation I attest this note accurately represents the information exchanged during a telehealth visit conducted by phone. The patient has been explained that this is an interactive (audio/video) telehealth encounter and what that consists of. The patient understands and wishes to proceed. [employer] platform was used. Total time spent caring for the patient today was 45 minutes. This includes time spent before the visit reviewing the chart, time spent during the visit, and time spent after the visit on documentation, reviewing laboratory results, diagnostic imaging, medications, performing a medically necessary evaluation, counseling on diagnoses, care coordination, ordering appropriate tests, ordering appropriate medications, review of tests performed by other providers, reporting test results with the patient, communication with other healthcare providers. [facility] Medical History (Updated 01/21/25 @ 16:05 by Shayy Villalobos, INSTRUMENT MAKER AND REPAIRER-BC) Asthma, mild intermittent, well-controlled Cervical cancer screening Chronic GERD Diverticulitis of sigmoid colon Etonogestrel implant for control Family history of breast cancer gene mutation in first degree relative Nasal polyps PCOS (polycystic ovarian syndrome) Tetanus, diphtheria, and acellular pertussis (Tdap) vaccination declined Yeast infection Surgical History (Updated 01/11/25 @ 13:50 by Mary Hinson NP) S/P tonsillectomy [place] teeth extracted Family History Mother Breast cancer Diverticulitis Father No problems noted. 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 occupational exposures/hazards: No Sexual orientation: Straight/Heterosexual Gender identity: Female Cognitive needs: No Hearing needs: No Vision needs: Yes Female Reproductive History Menstrual Age of Menarche: 9 Questionnaire Thrive Questionnaire Date Thrive assessed: 10/15/24 I am a: Patient What is your living situation today?: I have a steady place to live Within the past 12 months, did the food you bought not last and you didn't have the money to get more?: Never true Within the past 12 months, did you worry whether your food would run out before you got money to buy more?: Never true Do you have trouble paying for medicines?: No Do you have trouble getting transportation to medical appointments?: No Do you have trouble paying your heating and electricity bill?: No Do you have trouble taking care of your child, family member or friend?: No Do you have trouble with day-to-day activities such as bathing, preparing meals, shopping, managing finances, etc.?: No Are you currently unemployed and looking for a job?: No Are you interested in more education?: No Please select the resources that you would like help with: None Currently or been in a relationship where the following occur: No concerns reported THRIVE Score: 0 SHAI-7 AMB Questionnaire SHAI-7 Date SHAI - 7 assessed: 10/15/24 Source: Developed by Drs. Kendrick Tyson, Louise Maynard, Corona Patel and colleagues, with an educational taisha from [employer]. Physical exam (Primary Care) Tobacco/Smoking Status: Tobacco use Status Tobacco use date assessed 07/01/24 11/10/24 08:20 Patient Tobacco Use Status Never used Tobacco 11/10/24 08:20 e-Cigarette/Vaping Use Never Used 11/10/24 08:20 Thrive Assessment: Date of Thrive Assessment Date Thrive assessed 10/15/24 11/10/24 08:20 Currently or been in a relationship where the following occur: No concerns reported Telehealth Telehealth Telehealth Platform: [employer] Location of provider rendering services: practice address Location of patient: address on file Patient Identification confirmed using: Name, : Yes Telehealth method: voice only Patient verbally consented to treatment: Yes Patient verbally consented to billing insurance company: Yes Patient informed of any privacy concerns related to visit: Yes Minutes spent on Phone/Video with Pt.: 19 Coding Level of Care Code Tele Est Pt Level 5 (11563) Complex EM visit Add On G2211 Diagnoses Hospital discharge follow-up Z09 Palpitations R00.2 SVT (supraventricular tachycardia) I47.10 Assessment & Plan Assessment & Plan (1) Hospital discharge follow-up: Code(s): Z09 - Encounter for follow-up examination after completed treatment for conditions other than malignant neoplasm (2) Palpitations: Code(s): R00.2 - Palpitations Category: Medical (3) SVT (supraventricular tachycardia): Code(s): I47.10 - Supraventricular tachycardia, unspecified Category: Medical Plan . Orders: Referrals Cardiology Referral I47.10 - Supraventricular tachycardia, unspecified, R00.2 - Palpitations, Z09 - Encounter for follow-up examination after completed treatment for conditions other than malignant neoplasm Medications: New metoprolol tartrate 25 mg PO DAILY 30 tabs 0RF
--- OUTSIDE RECORDS SUMMARY | 2025-01-21 16:36 | XMS_ITS | Patient Health Record ---
Author Organization [facility] Address [address] [address] Care Team Providers Care Sheet Metal Former Name Role Phone IAN TARIQ Unavailable [phone] Reason For Referral No Information Plan Of Treatment No Information Insurance Providers Payer Name Payer Address Payer Phone Subscriber Number Group Number Insured Name Patient Relationship to Insured Coverage Start Date Coverage End Date [facility] [address] [address] [place] [address] [id number] YAMEL SULLIVAN Self - patient is the insured
== END 2025-01-21 17:08 | disposition home or self-care (01) ==
LOC: HO.HMCFM 16:33
PROVIDERS: PCP Nurse Practitioner Family; Visit Provider Nurse Practitioner Family
DX: R00.2 Palpitations (principal); Z09 Encounter for follow-up examination after completed treatment for conditions other than malignant neoplasm; I47.10 Supraventricular tachycardia, unspecified

== ENCOUNTER → 2025-01-21 16:33 | Outpatient (BNVA) | payer OTHER, SELFPAY | PROVIDERS: PCP Nurse Practitioner Family; Visit Provider Nurse Practitioner Family | DX: Z09 Encounter for follow-up examination after completed treatment for conditions other than malignant neoplasm (principal); I47.10 Supraventricular tachycardia, unspecified; R00.2 Palpitations | CPT/HCPCS: 98968 ==

== ENCOUNTER 2025-02-02 14:30 | Outpatient (AMB) | payer OTHER, SELFPAY ==
[2025-02-02 14:35] VITALS: BP 118/66; PULSE 92; BMI 38.3
--- NOTE | 2025-02-02 14:35 | MHC.OFFVIS ---
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 Allergies banana Allergy (Severe, Verified 01/21/25 16:17) Itching adhesive tape (ADHESIVE TAPE) Allergy (Intermediate, Verified 01/21/25 16:17) RASH detergents Allergy (Severe, Uncoded 11/04/24 09:44) Hives, face swelling Medical tape Allergy (Intermediate, Uncoded 11/04/24 09:44) hives wellbutrin Adverse Reaction (Mild, Uncoded 11/04/24 09:44) shaking Medication List - Last Reconciled 02/02/25 by Tian Washburn MD albuterol sulfate 90 mcg/actuation 2 puffs inhalation Q6H PRN cetirizine (Zyrtec) 10 mg PO DAILY citalopram (Celexa) 40 mg PO DAILY ipratropium-albuterol 20-100 mcg/actuation (Combivent Respimat) 1 puff inhalation QID PRN metoprolol tartrate 25 mg PO DAILY montelukast 10 mg PO BEDTIME Prilosec OTC (omeprazole magnesium) 40 mg (2 x 20 mg) PO BID NS HPI Comments Details: The patient is a 24-year-old female presenting with episodes of rapid heart rate and associated symptoms. The episodes began in January and are characterized by a sudden increase in heart rate to 140-150 beats per minute, accompanied by a sensation of heaviness and nausea. The patient reports that lying flat and elevating her feet provides some relief. These episodes have increased in frequency over the past month, occurring primarily in the mornings within 30 minutes to an hour after waking. The patient also experiences palpitations, dizziness, and shortness of breath during physical exertion, which have been ongoing for the past six months. The patient has a history of sinus tachycardia, with previous episodes documented in 2020, and was prescribed metoprolol by her primary care physician, which she reports has been helpful in managing her symptoms. The patient has been engaging in Pilates and yoga for exercise but has reduced activity due to increased heart rate during exertion. She reports a stable weight with typical fluctuations of about 10 pounds. The patient suspects sleep apnea due to severe snoring reported by her , and a home sleep study has been recommended to investigate further. [facility] Medical History (Updated 01/21/25 @ 16:05 by Shayy Villalobos [facility]) Nasal polyps Diverticulitis of sigmoid colon Family history of breast cancer gene mutation in first degree relative Tetanus, diphtheria, and acellular pertussis (Tdap) vaccination declined PCOS (polycystic ovarian syndrome) Yeast infection Etonogestrel implant for control Cervical cancer screening Asthma, mild intermittent, well-controlled Chronic GERD Surgical History (Updated 01/11/25 @ 13:50 by Mary Hinson NP) S/P tonsillectomy [place] teeth extracted Family History (Reviewed 08/30/23 @ 11:23 by Beba Whitmore [facility]) Mother Breast cancer Diverticulitis Father No problems noted. 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 occupational exposures/hazards: No Sexual orientation: Straight/Heterosexual Gender identity: Female Cognitive needs: No Hearing needs: No Vision needs: Yes Female Reproductive History Menstrual Age of Menarche: 9 Review of Systems Const Denies weakness ENT Denies dizziness Card Denies chest pain, Denies chest pain with activity, Denies syncope, Denies rapid heart rate, Denies pedal edema, Denies edema, Denies leg edema, Denies lightheadedness, Reports palpitations, Denies dyspnea, Denies dyspnea on exertion and Denies orthopnea Resp Denies cough, Denies dyspnea and Denies dyspnea on exertion GI Denies hematochezia and Denies change in stool character Musc Denies abnormal gait, Denies muscle cramps, Denies muscle weakness, Denies numbness, Denies radiating pain into limb and Denies tingling Neuro Denies abnormal gait, Denies dizziness, Denies syncope, Denies numbness, Denies tingling and Denies weakness Endo Reports palpitations Physical Exam Vital Signs: Last Vital Signs Pulse 92 02/02/25 14:35 BP 118/66 02/02/25 14:35 BMI result Body Mass Index 38.3 Const General: comfortable and no acute distress Orientation/consciousness: patient oriented x3 HEENT Other: Unremarkable Head: Yes normal to inspection Neck Neck: Yes normal visual inspection Chest Chest palpation & inspection: normal inspection of the chest Resp Auscultation: clear to auscultation bilaterally Cardio Palpation: normal PMI Heart sounds: S1 normal heart sound present, S2 normal heart sound present, no gallops, no murmurs and no rubs GI Palpation (GI): Soft to palpation Back/Spine/Pelvis Other: unremarkable Skin General skin exam: no rashes or lesions noted Neuro General: patient oriented x3 Extrem General: Yes normal to inspection Psych Mental Status: mental status grossly normal Office Procedures EKG Details: EKG with underlying sinus rhythm at 92/Min; nonspecific ST-T changes; [place] [id number], Complete Assessment & Plan Assessment & Plan (1) Palpitations: Code(s): R00.2 - Palpitations Category: Medical Plan EKGs from [facility] ER shows sinus tachycardia. Nonspecific ST-T changes. Normal high sensitivity troponin. Normal TSH. Hemoglobin 10.9. The patient will be provided with a heart monitor to wear for up to two weeks to capture episodes of rapid heart rate and determine if they are due to sinus tachycardia or supraventricular tachycardia SVT). During this period, she is advised to minimize metoprolol intake to ensure accurate monitoring results. A home sleep study is recommended to assess for sleep apnea, given the patient's severe snoring and morning symptoms. The patient is encouraged to continue with yoga and other relaxation exercises to help manage her symptoms. Follow-up appointments will be scheduled to review the results of the heart monitoring and sleep study, and to adjust treatment plans as necessary. Discussion Notes I discussed with the patient the possibility of her symptoms being due to sinus tachycardia and the importance of wearing a heart monitor to capture these episodes accurately. We also talked about the potential for sleep apnea contributing to her symptoms, and I recommended a home sleep study to investigate further. I advised her to minimize metoprolol intake during the monitoring period to ensure we capture accurate data. We agreed on follow-up appointments to review the results and adjust her treatment plan as needed. Patient was informed and verbally consented to the use of an ambient scribe for clinic note documentation during this visit. Orders: Orders CA echo transthoracic complete Today Tian Washburn MD R00.0 - Tachycardia, unspecified RT home sleep study Today Tian Washburn MD G47.33 - Obstructive sleep apnea (adult) (pediatric), I47.10 - Supraventricular tachycardia, unspecified ECG 14 day holter monitor Today Tian Washburn MD I47.10 - Supraventricular tachycardia, unspecified, R00.2 - Palpitations Medications: Changed From ipratropium-albuterol 20-100 mcg/actuation (Combivent Respimat) space evenly during waking hours 1 puff inhalation QID 4 grams 4RF To ipratropium-albuterol 20-100 mcg/actuation (Combivent Respimat) space evenly during waking hours 1 puff inhalation QID [facility] Patient Instructions: - Wear the heart monitor for up to two weeks as instructed. - Minimize metoprolol intake during the monitoring period unless necessary. - Continue with yoga and relaxation exercises. - Complete the home sleep study as instructed. - Attend follow-up appointments to discuss test results and treatment plans. Coding Level of Care Code New Pt Level 4 (07262) Complex EM visit Add On G2211 Diagnoses Palpitations R00.2 CPT Codes EKG - CPT: 43140-[id number], Complete ([id number])
--- OUTSIDE RECORDS SUMMARY | 2025-02-02 15:52 | XMS_ITS | Patient Health Record ---
Author Organization [facility] Address [address] [address] Care Team Providers Care Supervisor Nuclear Medicine Name Role Phone IAN TARIQ Unavailable [phone] Reason For Referral No Information Plan Of Treatment No Information Insurance Providers Payer Name Payer Address Payer Phone Subscriber Number Group Number Insured Name Patient Relationship to Insured Coverage Start Date Coverage End Date [facility] [address] [address] [place] [address] [id number] YAMEL SULLIVAN Self - patient is the insured
== END 2025-02-02 15:13 | disposition home or self-care (01) ==
LOC: HO.HCS 14:31
PROVIDERS: PCP Nurse Practitioner Family; Visit Provider Internal Medicine
DX: R00.2 Palpitations (principal)
CPT/HCPCS: 93010; 99204

== ENCOUNTER → 2025-02-02 14:30 | Outpatient (BNVA) | payer OTHER, SELFPAY | PROVIDERS: PCP Nurse Practitioner Family; Visit Provider Internal Medicine | DX: R00.2 Palpitations (principal) | CPT/HCPCS: 93005 ==

== ENCOUNTER → 2025-04-06 09:59 | Outpatient (REF) | payer OTHER, SELFPAY ==
--- NOTE | 2025-04-06 10:03 | CA_ITS ---
Transthoracic Echocardiogram Patient (Last, First, Middle): Ofelia Loomis, Gender: Female Date of : 2000 Age: 25 Procedure Date: 04/06/2025 Procedure Type: Transthoracic Echocardiogram Location: OP Height: 160.02 cm Weight: 97.98 kg BSA: 2.00 m2 Heart Rate: bpm BP: 118 / 66 mmHg Commercial Art Instructor: ALFREDO Referring MD: Tian Washburn MD Urban Forester: Tal Alvarez MD Symptoms: R00.0 - Tachycardia, unspecified Study Quality: Fair ECG Rhythm: Sinus Conclusions: - Normal study Findings Left Ventricle Normal left ventricular size, thickness, and systolic function. The visually estimated ejection fraction is between 55-60%. Spectral Doppler is indicative of a normal filling pattern. Right Ventricle Normal right ventricular cavity size and systolic function. Atria Both atria are normal in size. There is no evidence of interatrial shunt. Aortic Valve Normal aortic valve structure and function. There is no aortic valve stenosis. There is no aortic valve regurgitation. Mitral Valve Normal mitral valve structure and function. There is trace mitral valve regurgitation. There is no mitral valve stenosis. Pulmonic Valve The pulmonic valve is likely normal. Tricuspid Valve Normal tricuspid valve structure. There is trace tricuspid valve regurgitation. The right ventricular systolic pressure is normal. The right ventricular systolic pressure is 28 mmHg. Normal right atrial pressure. There is no evidence of pulmonary hypertension. Great Vessels All visible segments of the aorta are normal in size. The pulmonary artery was not well visualized. Venous The inferior vena cava is normal in size and collapses greater than 50% with inspiration. Pericardium/Pleural There is no evidence of pericardial effusion. Prior Study Comparison No prior study available for comparison. Measurements 2D Linear Measurements IVSd: 0.98 0.6-0.9/0.6-1.0 cm LVIDd: 4.75 3.9-5.3/4.2-5.9 cm LVIDd Index: 2.38 2.4-3.2/2.2-3.1 cm/m2 LVIDs: 3.07 2.0-3.6 cm LVPWd: 1.08 0.7-1.1 cm LA Diam: 3.50 2.7-3.8/3.0-4.0 cm LAIDs Index: 1.75 1.5-2.3 cm/m2 LV Mass: 216.85 67-162/88-224 g LV Mass Index: 108.43 43-95/49-115 g/m2 LVOT Diam: 2.30 3.0+(-)1.3 cm 2D Systolic Function EF 4C: 59.50 >55% EF 2C: 57.80 >55% EF BiP: 57.50 >55% Mitral Valve MV Pk E: 0.92 MV PK A: 0.55 MV Decel Time: 230.00 E/A: 1.70 E'Lateral: 11.60 E'Medial: 9.68 E/E' Med: 9.50 E/E' Lat: 7.90 PHT: 67.00 MVA PHT: 3.28 Decel [place]: 4.00 Aortic Valve AoV Pk Royce: 1.66 AoV Mn Royce: 1.07 AoV VTI: 0.32 AoV Pk Grad: 11.00 Aov Mn Grad: 5.00 NICHO Cont.VTI: 3.07 LVOT LVOT Pk Royce: 1.21 LVOT Mn Royce: 0.81 LVOT VTI: 0.24 LVOT Pk Grad: 6.00 LVOT Mn Grad: 3.00 LVOT Diam: 2.30 LVOT Area: 4.15 Diastolic Function MV Pk E: 0.92 MV Pk A: 0.55 E/A: 1.70 E'Medial: 9.68 E/E' Med: 9.50 E' Laterial: 11.60 E/E' Lat: 7.90 Right Ventricle TAPSE (mm): 24.00 TVS' Royce: 12.10 Tricuspid Valve TR Pk Royce: 2.52 TR Pk Grad: 25.00 RA Press: 3.00 RVSP: 28.00 Great Vessels Aorta Sinus of Valsalva: 3.14 2.0-3.5 cm Ao Asc: 3.10 2.1-3.4 cm Ao Arch: 2.70 Pulmonary Veins Pulm Vein S/D 1.20 Updated in Other Vendor System with Status of Final Tal Alvarez MD electronically signed on 04/06/2025 6:12:58 PM with status of Final
== END ==
LOC: HO.CARD 09:59
PROVIDERS: PCP Nurse Practitioner Family; Visit Provider Internal Medicine
DX: R00.2 Palpitations (principal); I47.10 Supraventricular tachycardia, unspecified
CPT/HCPCS: 93246; 93306

== ENCOUNTER → 2025-04-06 10:03 | Outpatient (BNV) | payer OTHER, SELFPAY | PROVIDERS: PCP Nurse Practitioner Family; Visit Provider Internal Medicine Cardiovascular Disease | DX: R06.02 Shortness of breath (principal) | CPT/HCPCS: 93306 ==

== ENCOUNTER 2025-06-15 13:40 | Outpatient (AMB) | payer OTHER, SELFPAY ==
--- NOTE | 2025-06-15 13:41 | MHC.OFFVIS ---
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 Accompanied by: Self / Same As Patient Allergies banana Allergy (Severe, Verified 03/19/25 14:16) Itching adhesive tape (ADHESIVE TAPE) Allergy (Intermediate, Verified 03/19/25 14:16) RASH detergents Allergy (Severe, Uncoded 03/19/25 14:16) Hives, face swelling Medical tape Allergy (Intermediate, Uncoded 03/19/25 14:16) hives wellbutrin Adverse Reaction (Mild, Uncoded 03/19/25 14:16) shaking Medication List - Last Reconciled 06/15/25 by Panda De Jesus NP albuterol sulfate 90 mcg/actuation 2 puffs inhalation Q6H PRN cetirizine (Zyrtec) 10 mg PO DAILY citalopram (Celexa) 40 mg PO DAILY cyanocobalamin (vitamin B-12) 1,000 mcg sublingual DAILY doxylamine succinate (Unisom (doxylamine)) 25 mg PO BEDTIME PRN folic acid 1 mg PO DAILY ipratropium-albuterol 20-100 mcg/actuation (Combivent Respimat) 1 puff inhalation QID PRN metoprolol tartrate 25 mg PO DAILY montelukast 10 mg PO BEDTIME Prilosec OTC (omeprazole magnesium) 40 mg (2 x 20 mg) PO BID NS pyridoxine (vitamin B6) 10 mg PO DAILY HPI Comments Details: This is a 25-year-old female patient coming in for a follow-up visit. Patient was previously seen in the office for palpitations and sudden increased heart rate. Patient states that she had episodes of sinus tachycardia back in 2020 for which patient was on metoprolol and had helped some. Most recently patient has a again noticed increased palpitations and therefore recently underwent echo and a Holter study. Patient reports ongoing palpitations and increased heart rate that improves with lying flat on her back and elevating her legs. Today patient reports that she is 9 weeks otherwise is denying any associated symptoms of shortness of breath, chest pain, dizziness, orthopnea, PND, leg edema, presyncope or syncope. [facility] Medical History Nasal polyps Diverticulitis of sigmoid colon Family history of breast cancer gene mutation in first degree relative Tetanus, diphtheria, and acellular pertussis (Tdap) vaccination declined PCOS (polycystic ovarian syndrome) Yeast infection Etonogestrel implant for control Cervical cancer screening Asthma, mild intermittent, well-controlled Chronic GERD Surgical History S/P tonsillectomy Wilder teeth extracted Family History Mother Breast cancer Diverticulitis Father No problems noted. 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 Current occupational exposures/hazards: No Sexual orientation: Straight/Heterosexual Gender identity: Female Cognitive needs: No Hearing needs: No Vision needs: Yes Female Reproductive History Menstrual Age of Menarche: 9 Review of Systems Const Denies daytime sleepiness, Denies difficulty sleeping, Denies snoring, Denies stops breathing during sleep and Denies weakness Card Denies chest pain, Denies rapid heart rate, Denies irregular heart rhythm, Denies claudication, Denies leg edema, Denies lightheadedness, Reports palpitations, Denies dyspnea, Reports dyspnea on exertion, Denies orthopnea, Denies paroxysmal nocturnal dyspnea and Denies slow heart rate Resp Denies cough, Denies dyspnea, Reports dyspnea on exertion and Denies snoring GI Reports no additional complaints, Denies hematochezia, Denies change in stool character and Denies dyspepsia Musc Denies abnormal gait, Denies muscle weakness and Denies numbness Neuro Denies abnormal gait, Denies numbness and Denies weakness Endo Reports palpitations Physical Exam Vital Signs: Last Vital Signs Pulse 125 H 06/15/25 13:42 BP 102/62 06/15/25 13:42 BMI result Body Mass Index 40.6 Const General: cooperative, healthy appearing, comfortable and no acute distress Orientation/consciousness: patient oriented x3 HEENT Head: Yes normal to inspection Neck Neck: Yes normal visual inspection, Yes trachea midline and Yes supple Chest Chest palpation & inspection: normal inspection of the chest Resp Effort & Inspection: normal respiratory effort Auscultation: clear to auscultation bilaterally, no crackles, no rales, no rhonchi and no wheezes Cardio Jugular venous distension: no JVD Palpation: normal PMI Rate: tachycardic Rhythm: regular rhythm Heart sounds: S1 normal heart sound present, S2 normal heart sound present, no click, no gallops, no murmurs and no rubs Peripheral pulses: Peripheral pulses 2+ throughout GI Inspection: Yes normal to inspection Palpation (GI): Soft to palpation Auscultation: normal bowel sounds Skin General skin exam: no rashes or lesions noted Neuro General: patient oriented x3 Extrem General: Yes normal to inspection, No no pedal edema and No calf tenderness Psych Appearance: grossly normal Mental Status: mental status grossly normal Speech and movement: Normal speech and movement present Office Procedures EKG Details: EKG today shows sinus tachycardia, rate 125 beats per minute, nonspecific STT wave, [place], [place] [id number], Complete Assessment & Plan Assessment & Plan (1) Palpitations: Code(s): R00.2 - Palpitations Category: Medical (2) Sinus tachycardia: Code(s): R00.0 - Tachycardia, unspecified Category: Medical Plan 04/06/2025-patient underwent a Holter study that showed underlying sinus rhythm with frequent sinus tachycardia noted 32.6% of the time. 04/06/2025-Patient underwent an echocardiogram that showed a normal LV systolic function with the ejection fraction between 55-60% with normal atrial sizes. EKG today shows sinus tachycardia with a heart rate of 125 beats per minute. No signs of SVT. Reassurance provided and explained that heart rate can normally be elevated during particularly knowing that patient has pre-existing sinus tachycardia. Patient saw her OB this morning and confirmed that metoprolol is safe to take during . Patient can continue this alongside conservative measures such as adequate hydration, no caffeinated beverages, exercise, wearing compression socks, stress mitigation strategies, and careful positional changes. Patient can complete her sleep study otherwise, no further testing at this time. Patient understanding of this. Plan is to meet with the patient in a year, sooner if needed. Discussed case with Dr. Washburn. This note was generated using voice recognition software. While every effort has been made to ensure accuracy and proper counselor aide, there may be occasional errors that could affect the content or meaning of the described symptoms. Orders: Orders AMB EKG-In Office Today R00.2 - Palpitations Coding Level of Care Code New Pt Level 4 (27994) Add On Problem Visit Only Diagnoses Palpitations R00.2 Sinus tachycardia R00.0 CPT Codes EKG - CPT: 59943-[id number], Complete ([id number]) Time Spent (min) 31 Comment Time spent in reviewing the chart, test results, assessment, counseling and documentation.
[2025-06-15 13:42] VITALS: BP 102/62; PULSE 125; BMI 40.6
== END 2025-06-15 14:24 | disposition home or self-care (01) ==
LOC: HO.HCS 13:41
PROVIDERS: PCP Nurse Practitioner Family
DX: R00.2 Palpitations (principal); R00.0 Tachycardia, unspecified
CPT/HCPCS: 93010; 99204

== ENCOUNTER → 2025-06-15 13:40 | Outpatient (BNVA) | payer OTHER, SELFPAY | PROVIDERS: PCP Nurse Practitioner Family | DX: O99.891 Other specified diseases and conditions complicating pregnancy (principal); R00.2 Palpitations; R00.0 Tachycardia, unspecified; Z79.899 Other long term (current) drug therapy; Z3A.09 9 weeks gestation of pregnancy | CPT/HCPCS: 93005 ==